=== PATIENT | male | born 1950 | race Caucasian/White ===

== ENCOUNTER → 2019-05-25 07:21 | Outpatient (CLI) | payer MEDICARE, SELFPAY ==
[2019-05-25 08:28] LABS: Add Manual Diff / Slide Review NO; Basophils Absolute Auto 0 /uL (0-100); Basophils Percent Auto 0.3 % (0-2); Eosinophils Absolute Auto 200 /uL (0-450); Eosinophils Percent Auto 3.1 % (2-4); Hemoglobin 17.3 g/dL (13.5-17.5); Lymphocytes Absolute Auto 1600 /uL (1100-4500); Lymphocytes Percent Auto 23.4 % (25-40); Mean Corpuscular HGB Conc 35.2 % (30-36); Mean Corpuscular Hemoglobin 31.4 PG (26-34); Mean Corpuscular Volume 89.2 fL (80-100); Monocytes Absolute Auto 500 /uL (0-900); Neutrophils Absolute Auto 4400 /uL (1500-7000); Neutrophils Percent Auto 66.2 % (50-75); Platelet Count 226 X10^3/uL (150-400); Red Blood Cell Count 5.49 X10^6/uL (4.5-5.9); Red Cell Distribution Width 13.1 % (11.6-14.8); White Blood Cell Count 6.7 X10^3/uL (4.5-11.0)
[2019-05-25 08:44] LABS: Alanine Aminotransferase 20 IU/L (21-72); Albumin 4.2 g/dL (3.5-5.0); Albumin Globulin Ratio 1.2 (1.0-2.8); Alkaline Phosphatase 76 U/L (38-126); Aspartate Aminotransferase 15 IU/L (17-59); BUN Creatinine Ratio 27.1 (6-22); Bilirubin Total 0.8 mg/dL (0.2-1.3); Blood Urea Nitrogen 19 mg/dL (9-20); Calcium 9.8 mg/dL (8.4-10.2); Carbon Dioxide 29 mmol/L (22-32); Chloride 96 mmol/L (98-107); Cholesterol 208 mg/dL (140-199); Estimated Glomerular Filt Rate > 60.0 mL/min (>60); Globulin 3.6 g/dL (1.7-4.1); Glucose 337 mg/dL (80-110); HDL Cholesterol 42 mg/dL (40-60); HEMOLYSIS < 15 (0-50); LDL Cholesterol Calculated 133 mg/dL (<100); Sodium 136 mmol/L (137-145); Total Protein 7.8 g/dL (6.3-8.2); Triglycerides 165 mg/dL (35-150)
[2019-05-25 08:47] LABS: Hemoglobin A1C% w Est Avg Glu 10.8 % (4.0-6.0)
[2019-05-25 09:13] LABS: Prostate Specific Antigen Scrn 0.566 ng/mL (0.1-4.0)
== END ==
PROVIDERS: Family Provider Family Medicine; PCP Family Medicine; Visit Provider Family Medicine
DX: E11.9 Type 2 diabetes mellitus without complications (principal); I10 Essential (primary) hypertension; Z12.5 Encounter for screening for malignant neoplasm of prostate; Z13.220 Encounter for screening for lipoid disorders
CPT/HCPCS: 36415; 80053; 80061; 83036; 85025; G0103

== ENCOUNTER → 2019-07-27 06:43 | Outpatient (CLI) | payer MEDICARE, SELFPAY ==
--- NOTE | 2019-07-27 06:45 | DI.ECHO.S_ITS ---
[facility]---------+ [facility] +---------+ : : [address] : : : : [phone] : : : : Phone: [phone]+ Echocardiogram Report + + :Name: LEIA DON Study Date: 07/27/2019 Height: 70 in : :[facility] Weight: 212 lb : : Gender: Male BSA: 2.1 m2 : :: 1950 Age: 69 yrs BP: 112/74 mmHg: :Reason For Study: Dilated ascending aorta : : Performed By: [facility] Staff : :Referring: JENARO CEJA : + + Interpretation Summary The left ventricle is normal in size. The ejection fraction is estimated to be 60-65%. There has been no significant change in LVEF since the previous study. The right ventricle is normal in size and function. No significant valvular pathology seen. The ascending aorta is moderately enlarged. 4.7 cm in diameter. In October 2017 it was 4.6 cm in diameter. The aortic root is mildly dilated. 4.3 cm in diameter. In October 2017 it was 4.0 cm in diameter. Procedure: A two-dimensional transthoracic echocardiogram with color flow and Doppler was performed. The study quality was technically adequate. Prior echo performed on 11/14/17. The patient was in normal sinus rhythm during the exam. Left Ventricle: The left ventricle is normal in size. There is mild concentric left ventricular hypertrophy. There is no thrombus. Left ventricular systolic function is normal. The ejection fraction is estimated to be 60-65%. There has been no significant change since the previous study. Left ventricular wall motion is normal. Diastolic parameters suggest a relaxation abnormality of the left ventricle, consistent with probable normal filling pressures. Right Ventricle: The right ventricle is normal in size and function. Atria: The left atrium is borderline dilated. The left atrium has mildly decreased in size since the prior echo exam. Right atrial size is normal. The interatrial septum is intact with no evidence for an atrial septal defect. Mitral Valve: The mitral valve leaflets are slightly calcified. There is trace mitral regurgitation. Aortic Valve: The aortic valve is trileaflet. The aortic valve opens well. There is no aortic valve stenosis. There is trace aortic regurgitation. Tricuspid Valve: The tricuspid valve is normal in structure and function. There is trace tricuspid regurgitation. Pulmonary artery pressures cannot be estimated because of the lack of a measurable TR jet velocity. Pulmonic Valve: The pulmonic valve is not well visualized. There is trace pulmonic regurgitation. Great Vessels: The aortic root is mildly dilated. The ascending aorta is moderately enlarged. The pulmonary artery is normal size. The IVC is of normal diameter and collapses greater than 50% with a sniff. This suggests a low right atrial pressure of 3 mm Hg. Pericardium/ Pleura There is no pericardial effusion. There is no pleural effusion. MMode/2D Measurements & Calculations LVIDd: 4.7 cm LVOT diam: 2.4 cm LVIDs: 2.8 cm Ao root diam: 4.3 cm FS: 40.5 % Aortic Jxn: 3.4 cm EPSS: 0.89 cm asc Aorta Diam: 4.7 cm IVSd: 1.3 cm Ao Arch Diam (Prox Trans): 3.5 cm LVPWd: 1.2 cm LV alba. diameter/BSA (cm/m^2): 2.2 LV sys. diameter/BSA (cm/m^2): 1.3 LA A2 area: 25.0 cm2 RA long axis: 6.1 cm LA A4 area: 22.6 cm2 RA area: 14.9 cm2 LA length (vol): 6.7 cm RA vol: 30.9 ml LA vol: 71.5 ml RA : 14.4 ml/m2 LA vol index: 33.4 ml/m2 TAPSE: 2.7 cm Doppler Measurements & Calculations Ao V2 max: 108.3 cm/sec LVOT Max Adan: 105.0 cm/sec Ao V2 mean: 84.0 cm/sec LV V1 max P.4 mmHg Ao max P.7 mmHg LV V1 VTI: 22.2 cm Ao mean P.1 mmHg QUIANA(I,D): 4.1 cm2 Ao V2 VTI: 23.7 cm QUIANA(V,D): 4.3 cm2 sev ratio: 0.94 QUIANA indexed to BSA (cm^2/m^2): 1.9 MV E max adan: 52.6 cm/sec PA V2 max: 61.6 cm/sec MV A max adan: 72.0 cm/sec PA V2 mean: 46.5 cm/sec MV E/A: 0.73 PA mean P.94 mmHg Med Peak E' Adan: 5.9 cm/sec PA Accel Time: 0.14 sec E/E' med: 8.9 Lat Peak E' Adan: 8.6 cm/sec E/E' lat: 6.1 E/e' average: 7.5 MV dec time: 0.25 sec SV(LVOT): 97.6 ml Reading Physician:06:18 PM
== END ==
PROVIDERS: PCP Family Medicine; Visit Provider Family Medicine
DX: I77.810 Thoracic aortic ectasia (principal)
CPT/HCPCS: 93306

== ENCOUNTER → 2019-07-30 06:40 | Outpatient (CLI) | payer MEDICARE, SELFPAY ==
[2019-07-30 09:00] LABS: Cholesterol 197 mg/dL (140-199); HDL Cholesterol 32 mg/dL (40-60); LDL Cholesterol Calculated 142 mg/dL (<100); Triglycerides 113 mg/dL (35-150)
[2019-07-30 09:04] LABS: Hemoglobin A1C% w Est Avg Glu 9.2 % (4.0-6.0)
== END ==
PROVIDERS: PCP Family Medicine; Visit Provider Family Medicine
DX: I10 Essential (primary) hypertension (principal)
CPT/HCPCS: 80061; 83036

== ENCOUNTER → 2019-12-24 06:57 | Outpatient (CLI) | payer MEDICARE, SELFPAY ==
[2019-12-24 08:44] LABS: Hemoglobin A1C% w Est Avg Glu 6.4 % (4.0-6.0)
== END ==
PROVIDERS: PCP Family Medicine; Referring Provider Family Medicine; Visit Provider Family Medicine
DX: E11.9 Type 2 diabetes mellitus without complications (principal)
CPT/HCPCS: 36415; 83036

== ENCOUNTER → 2020-03-21 07:04 | Outpatient (CLI) | payer MEDICARE, SELFPAY ==
[2020-03-21 08:32] LABS: Add Manual Diff / Slide Review NO; Basophils Absolute Auto 0 /uL (0-100); Basophils Percent Auto 0.6 % (0-2); Eosinophils Absolute Auto 200 /uL (0-450); Eosinophils Percent Auto 2.9 % (2-4); Hematocrit 43.3 % (41-53); Hemoglobin 15.1 g/dL (13.5-17.5); Lymphocytes Absolute Auto 1600 /uL (1100-4500); Lymphocytes Percent Auto 24.5 % (25-40); Mean Corpuscular HGB Conc 34.8 % (30-36); Mean Corpuscular Hemoglobin 31.5 PG (26-34); Mean Corpuscular Volume 90.4 fL (80-100); Monocytes Absolute Auto 500 /uL (0-900); Monocytes Percent Auto 7.9 % (3-14); Neutrophils Absolute Auto 4300 /uL (1500-7000); Neutrophils Percent Auto 64.1 % (50-75); Platelet Count 217 X10^3/uL (150-400); Red Blood Cell Count 4.79 X10^6/uL (4.5-5.9); Red Cell Distribution Width 13.6 % (11.6-14.8); White Blood Cell Count 6.7 X10^3/uL (4.5-11.0)
[2020-03-21 08:45] LABS: Alanine Aminotransferase 22 IU/L (<50); Albumin Globulin Ratio 1.3 (1.0-2.8); Alkaline Phosphatase 52 U/L (38-126); Aspartate Aminotransferase 21 IU/L (17-59); BUN Creatinine Ratio 27.4 (6-22); Bilirubin Total 0.4 mg/dL (0.2-1.3); Blood Urea Nitrogen 23 mg/dL (9-20); Calcium 9.4 mg/dL (8.4-10.2); Carbon Dioxide 31 mmol/L (22-32); Chloride 100 mmol/L (98-107); Cholesterol 121 mg/dL (140-199); Estimated Glomerular Filt Rate > 60.0 mL/min (>60); Glucose 146 mg/dL (80-110); HDL Cholesterol 38 mg/dL (40-60); HEMOLYSIS < 15 (0-50); LDL Cholesterol Calculated 67 mg/dL (<100); Sodium 137 mmol/L (137-145); Triglycerides 80 mg/dL (35-150)
[2020-03-21 08:46] LABS: Hemoglobin A1C% w Est Avg Glu 6.9 % (4.0-6.0)
== END ==
PROVIDERS: PCP Family Medicine; Referring Provider Family Medicine; Visit Provider Family Medicine
DX: E11.9 Type 2 diabetes mellitus without complications (principal); I77.810 Thoracic aortic ectasia
CPT/HCPCS: 36415; 80053; 80061; 83036; 85025

== ENCOUNTER → 2020-04-18 11:03 | Outpatient (CLI) | payer MEDICARE, SELFPAY ==
--- NOTE | 2020-04-18 11:06 | DI.RAD.S_ITS ---
PROCEDURE: XR SHOULDER RT MIN 2V INDICATIONS: ongoing right shoulder pain TECHNIQUE: 3 views of the shoulder were acquired. COMPARISON: None. FINDINGS: Bones: No fracture. Degenerative sclerosis and spurring at the AC and glenohumeral joints. No definite AC joint space narrowing. Soft tissues: No suspicious soft tissue calcifications. IMPRESSION: Degenerative changes as above. If the patient's pain or other symptoms persist, consider further evaluation with MRI Dictated by: Juan Alberto Hoyos M.D. on 04/18/2020 at 14:45 Approved by: Juan Alberto Hoyos M.D. on 04/18/2020 at 14:46
== END ==
PROVIDERS: PCP Family Medicine; Referring Provider Family Medicine; Visit Provider Family Medicine
DX: M25.511 Pain in right shoulder (principal); E11.9 Type 2 diabetes mellitus without complications
CPT/HCPCS: 73030

== ENCOUNTER → 2020-04-22 08:01 | Outpatient (CLI) | payer MEDICARE, SELFPAY ==
[2020-04-22 09:18] LABS: Add Manual Diff / Slide Review NO; Basophils Absolute Auto 0 /uL (0-100); Basophils Percent Auto 0.2 % (0-2); Eosinophils Absolute Auto 100 /uL (0-450); Hematocrit 45.5 % (41-53); Hemoglobin 15.7 g/dL (13.5-17.5); Lymphocytes Absolute Auto 1700 /uL (1100-4500); Lymphocytes Percent Auto 24.1 % (25-40); Mean Corpuscular HGB Conc 34.5 % (30-36); Monocytes Absolute Auto 600 /uL (0-900); Monocytes Percent Auto 8.1 % (3-14); Neutrophils Absolute Auto 4600 /uL (1500-7000); Neutrophils Percent Auto 65.6 % (50-75); Platelet Count 214 X10^3/uL (150-400); Red Blood Cell Count 5.05 X10^6/uL (4.5-5.9); Red Cell Distribution Width 13.7 % (11.6-14.8); White Blood Cell Count 7.1 X10^3/uL (4.5-11.0)
[2020-04-22 09:45] LABS: BUN Creatinine Ratio 27.2 (6-22); Blood Urea Nitrogen 22 mg/dL (9-20); Calcium 9.5 mg/dL (8.4-10.2); Carbon Dioxide 31 mmol/L (22-32); Chloride 100 mmol/L (98-107); Cholesterol 118 mg/dL (140-199); Estimated Glomerular Filt Rate > 60.0 mL/min (>60); Glucose 118 mg/dL (80-110); HDL Cholesterol 36 mg/dL (40-60); HEMOLYSIS < 15 (0-50); LDL Cholesterol Calculated 66 mg/dL (<100); Potassium 3.8 mmol/L (3.4-5.1); Sodium 137 mmol/L (137-145); Triglycerides 79 mg/dL (35-150)
--- NOTE | 2020-04-22 10:06 | DI.MRI.S_ITS ---
PROCEDURE: MR SHOULDER RT WO CON INDICATIONS: right shoulder pain s/p fall TECHNIQUE: Noncontrast oblique coronal T2 fast spin echo with fat saturation, oblique sagittal T1 spin echo and T2 fast spin echo with fat saturation, axial T1 spin echo and T2 fast spin echo with fat saturation through the shoulder. COMPARISON: [facility], CR, XR SHOULDER RT MIN 2V, 04/18/2020, 10:04. FINDINGS: Image quality: There are significant motion artifacts. Rotator cuff: There is full-thickness tear of the supraspinatus tendon with mild tendon retraction. There is high-grade partial thickness tear of the infraspinatus, and subscapularis tendons and associated tendinitis. Sagittal images demonstrate no muscle atrophy. Bones and bursae: No bone marrow contusions or fractures. There is severe acromioclavicular and glenohumeral joint degeneration. The acromion demonstrates conventional anatomy, without an os acromiale. There is moderate glenohumeral joint effusion and pathologic subacromial-subdeltoid or subcoracoid bursal fluid. Capsule and soft tissues: There is degenerative tear of the superior labrum and anterior labrum. In the absence of intra-articular contrast, the glenohumeral ligaments appear intact. The long head of the biceps tendon demonstrates normal location and morphology. The rotator interval appears normal, without fibrosis. The coracohumeral ligament is normal in thickness. IMPRESSION: 1. Full thickness tear of the supraspinatus tendon. There is mild tendon retraction but no supraspinatus muscle atrophy. 2. High-grade partial thickness tear of the infraspinatus and subscapularis tendons and associated tendinitis. 3. Degenerative labral tear of the superior and anterior labrum. 4. Severe glenohumeral and acromioclavicular joint degeneration. 5. Moderate glenohumeral joint effusion. There is subacromial-subdeltoid or subcoracoid bursal fluid it to joint effusion but superimposed bursitis may be present. Dictated by: Fazal Rubin M.D. on 04/24/2020 at 9:09 Approved by: Fazal Rubin M.D. on 04/24/2020 at 10:17
== END ==
PROVIDERS: PCP Family Medicine; Referring Provider Family Medicine; Visit Provider Family Medicine
DX: M25.511 Pain in right shoulder (principal); M75.121 Complete rotator cuff tear or rupture of right shoulder, not specified as traumatic; S43.491A Other sprain of right shoulder joint, initial encounter; M19.011 Primary osteoarthritis, right shoulder; M25.411 Effusion, right shoulder; E11.9 Type 2 diabetes mellitus without complications; I10 Essential (primary) hypertension
CPT/HCPCS: 36415; 73221; 80048; 80061; 85025

== ENCOUNTER → 2020-06-20 10:31 | Outpatient (CLI) | payer MEDICARE, SELFPAY ==
[2020-06-20 12:25] LABS: Hemoglobin A1C% w Est Avg Glu 6.5 % (4.0-6.0)
[2020-06-20 13:10] LABS: BUN Creatinine Ratio 22.1 (6-22); Blood Urea Nitrogen 21 mg/dL (9-20); Calcium 9.6 mg/dL (8.4-10.2); Carbon Dioxide 32 mmol/L (22-32); Chloride 99 mmol/L (98-107); Estimated Glomerular Filt Rate > 60.0 mL/min (>60); Glucose 100 mg/dL (80-110); HEMOLYSIS < 15 (0-50); Potassium 3.7 mmol/L (3.4-5.1); Sodium 138 mmol/L (137-145)
[2020-06-20 13:30] LABS: Prostate Specific Antigen Scrn 0.743 ng/mL (0.1-4.0)
== END ==
PROVIDERS: Family Provider Family Medicine; PCP Family Medicine; Referring Provider Family Medicine; Visit Provider Family Medicine
DX: E11.9 Type 2 diabetes mellitus without complications (principal); Z12.5 Encounter for screening for malignant neoplasm of prostate
CPT/HCPCS: 36415; 80048; 83036; G0103

== ENCOUNTER 2020-07-21 09:00 | Outpatient (RCR) | payer MEDICARE, SELFPAY ==
--- NOTE | 2020-06-06 11:38 | PT.OPPOC ---
Physical, Occupational & Speech Therapy At [facility] Current Diagnoses Strain of muscle(s) and tendon(s) of the rotator cuff of right shoulder, initial encounter (06/06/20) Visit Care Team Role Provider Type Mitesh Brizuela MD Family Provider Physician Primary Care Provider Specialty: Family Practice Address: [address] [place] [address], [id number] Email: [email or web address] Bennie Eisenberg MD Attending Provider Physician Referring Provider Specialty: Orthopedic Surgery Address: [address] [place] [address], [id number] Email: [email or web address] Plan Of Care PT-OP-T Assessment and Plan Start: 06/06/20 07:59 Freq: Status: Active Protocol: Document 06/06/20 10:15 AMB (Rec: 06/07/20 11:38 AMB [email or web address]) Physical Therapy Assessment Rehab Potential Rehabilitation Potential Good Evaluation Complexity Number of Personal Factors/Comorbidities 1-2 Number of Body Systems Impaired 3 Clinical Presentation at Evaluation Evolving Impairments Impairments Posture,ROM,Strength Goals Three Impairment Pain Short Term Goal (STG) Zak will sleep through the night without an increase in shoulder pain. STG Duration 4 weeks Stretching Press Operator Goal (LTG) Zak will report that he can perform his yardwork without an increase in shoulder pain. LTG Duration 8 weeks Two Impairment Strength Short Term Goal (STG) Zak will improve his right shoulder abduction strength to at least 4/5. STG Duration 4 weeks Stretching Press Operator Goal (LTG) Zak will improve his shoulder strength so that he can lift his grandkids without shoulder pain. LTG Duration 8 weeks One Impairment ROM Short Term Goal (STG) Zak will improve his abduction AROM to 140 degrees STG Duration 4 weeks Group Home Goal (LTG) Zak will have full horizonal adduction without an increase in shoulder pain. LTG Duration 8 weeks Assessment Summary Assessment Zak attends physical therapy with a long history of right shoulder issues, and significant rotator cuff and labral pathology per MRI. His shoulder pain increased recently after a fall, but has improved since then. Shoulder abduction and horizontal adduction are the motions that are the biggest impairments for him. He will benefit from instruction in an appropriate exercise program so that he can return to his prior level of function, he does have a tendency to over do, so we will need to help him to keep his exercise program appropriate and not flare his symptoms. Physical Therapy Plan Frequency and Duration Frequency of Treatment 2x/Week Duration of Treatment 8 weeks Plan of Care Start Date 06/06/20 Plan of Care End Date 08/01/20 Therapeutic Interventions Therapeutic Interventions Home Exercise Program,Manual Therapy,Neuromuscular Re- education,Therapeutic Activities,Therapeutic Exercises Modalities Cold Pack/Ice Massage,Electric Stimulation,Hot Packs Next Visit Focus/Plan Next Note Type Treatment Note Next Visit Plan Progress HEP with focus on good body mechanics with yardwork. Plan of Care Dates Plan of Care Start Date 06/06/20 Plan of Care End Date 08/01/20 Electronically Signed by: Francine Hatch, PT 06/07/20 [id number] Please Sign and Return: I have reviewed this Plan of Care and certify that the skilled therapy services above are required to meet the patient?s needs. Physician Signature Date Printed Name and Credentials Clinical Instructor Signature Printed Name and Credentials
--- NOTE | 2020-06-06 11:38 | PT.OIE ---
Current Diagnoses Strain of muscle(s) and tendon(s) of the rotator cuff of right shoulder, initial encounter (06/06/20) Past Medical History (Last Updated 04/17/20 @ 19:16 by Sruthi Lopez) Abdominal aortic aneurysm (Chronic) Atrial fibrillation (Chronic) Carpal tunnel syndrome (Chronic) Fractures (Resolved) Past Surgical History (Last Updated 04/17/20 @ 19:16 by Sruthi Lopez) Anesthesia (Resolved) History of tonsillectomy (Resolved) History of umbilical hernia (Resolved) Visit Care Team Role Provider Type Mitesh Brizuela MD Family Provider Physician Primary Care Provider Specialty: Family Practice Address: [address] [place] [address], [id number] Email: [email or web address] Bennie Eisenberg MD Attending Provider Physician Referring Provider Specialty: Orthopedic Surgery Address: [address] [place] [address], [id number] Email: [email or web address] Physical Therapy Initial Evaluation PT-OP-A Visit Information Start: 06/06/20 07:59 Freq: Status: Active Protocol: Document 06/06/20 10:15 AMB (Rec: 06/06/20 16:01 AMB [email or web address]) Out-Patient Physical Therapy Visit Information Visit Information Visit Type Initial Evaluation Visit Start Time 10:15 Visit Stop Time 11:00 Total Visit Minutes 45 Visit Number 1 PT-OP-B Current Condition Start: 06/06/20 07:59 Freq: Status: Active Protocol: Document 06/06/20 10:15 AMB (Rec: 06/06/20 10:27 AMB [id number]) Current Condition History of Current Condition Onset Date January 2020 Current Complaints R shoulder History of Current Condition Zak reports that he had a shoulder injury years ago, that worsened in January when he fell on outstretched arm. He reports his shoulder locks up at night, and he has significant difficulty with shoveling gravel (he is in the middle of a yardwork project) . 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 RHD. Wants to be able to lift his grandchildren Prior Treatments and Tests MRI: 1. Full thickness tear of the supraspinatus tendon. There is mild tendon retraction but no supraspinatus muscle atrophy. 2. High-grade partial thickness tear of the infraspinatus and subscapularis tendons and associated tendinitis. 3. Degenerative labral tear of the superior and anterior labrum. 4. Severe glenohumeral and acromioclavicular joint degeneration. 5. Moderate glenohumeral joint effusion. There is subacromial-subdeltoid or subcoracoid bursal fluid it to joint effusion but superimposed bursitis may be present. Prior Functional Status Baseline Function- ADL's Independent Baseline Function- Mobility Independent Current Functional Impairments (Reported) Functional Limitations- ADL's pain with shoulder abduction, lifting, sleeping on the shoulder Personal Factors Other Personal Factors That May Effect Aortic aneurism per patient. Therapy/Recovery PT-OP-C Subjective Start: 06/06/20 07:59 Freq: Status: Active Protocol: Document 06/06/20 10:15 AMB (Rec: 06/06/20 15:39 AMB [email or web address]) Patient Questionnaires Neck Disability Index NDI Score 10 Neck Disability Index Impairment 1 to 19% Impaired (Score 1-9) Quick Dash- Upper Extremity Quick Dash UE Score 22 Quick Dash UE Impairment 20 to 39% Impaired (Score 20- 39) OP-PT Pain Assessment Location Right Shoulder Pain Location Details ant/lateral Intensity 3 PT-OP-J Posture/Palpation/Skin Start: 06/06/20 07:59 Freq: Status: Active Protocol: Document 06/06/20 10:15 AMB (Rec: 06/06/20 16:01 AMB [email or web address]) Posture Evaluation Comments Posture Comments Forward shoulders, right shoulder depressed Palpation Assessment Location One Palpation Details Tightness at upper traps bilaterally, tenderness at biceps tendon, AC joint PT-OP-K Range of Motion Start: 06/06/20 07:59 Freq: Status: Active Protocol: Document 06/06/20 10:15 AMB (Rec: 06/06/20 16:01 AMB [email or web address]) Shoulder Goniometric Range of Motion Shoulder Left Active Shoulder ROM WFL Yes Testing Position Sitting Flexion 157 Abduction 180 External Rotation at 0 degrees Abduction 70 Right Active Testing Position Sitting Flexion 150 Extension 60 Abduction 100 External Rotation at 0 degrees Abduction 70 Comments pain with horizontal adduction PT-OP-L Special Tests Start: 06/06/20 07:59 Freq: Status: Active Protocol: Document 06/06/20 10:15 AMB (Rec: 06/06/20 16:01 AMB [email or web address]) Special Tests Shoulder Special Tests Lift-Off Rotator Cuff Test Results - Empty Can Test Results - PT-OP-M Strength Start: 06/06/20 07:59 Freq: Status: Active Protocol: Document 06/06/20 10:15 AMB (Rec: 06/06/20 16:01 AMB [email or web address]) Shoulder Strength Shoulder Manual Muscle Testing Right Abduction (C5) 4- Good- External Rotation 4+ Good+ Internal Rotation 4+ Good+ Left Flexion 4+ Good+ Extension 5 Normal Abduction (C5) 4+ Good+ External Rotation 5 Normal Internal Rotation 5 Normal PT-OP-Q Treatments Start: 06/06/20 07:59 Freq: Status: Active Protocol: Document 06/06/20 10:15 AMB (Rec: 06/07/20 11:38 AMB [email or web address]) Therapeutic Exercises Standing Exercises 2 Standing Exercise Name t band IR/ER Resistance #2 Reps/Minutes 2x12 1 Standing Exercise Name t band rows Resistance #2 Reps/Minutes 2x12 PT-OP-T Assessment and Plan Start: 06/06/20 07:59 Freq: Status: Active Protocol: Document 06/06/20 10:15 AMB (Rec: 06/07/20 11:38 AMB [email or web address]) Physical Therapy Assessment Rehab Potential Rehabilitation Potential Good Evaluation Complexity Number of Personal Factors/Comorbidities 1-2 Number of Body Systems Impaired 3 Clinical Presentation at Evaluation Evolving Impairments Impairments Posture,ROM,Strength Goals Three Impairment Pain Short Term Goal (STG) Zak will sleep through the night without an increase in shoulder pain. STG Duration 4 weeks Jail Goal (LTG) Zak will report that he can perform his yardwork without an increase in shoulder pain. LTG Duration 8 weeks Two Impairment Strength Short Term Goal (STG) Zak will improve his right shoulder abduction strength to at least 4/5. STG Duration 4 weeks Parking Assistant Goal (LTG) Zak will improve his shoulder strength so that he can lift his grandkids without shoulder pain. LTG Duration 8 weeks One Impairment ROM Short Term Goal (STG) Zak will improve his abduction AROM to 140 degrees STG Duration 4 weeks Parking Assistant Goal (LTG) Zak will have full horizonal adduction without an increase in shoulder pain. LTG Duration 8 weeks Assessment Summary Assessment Zak attends physical therapy with a long history of right shoulder issues, and significant rotator cuff and labral pathology per MRI. His shoulder pain increased recently after a fall, but has improved since then. Shoulder abduction and horizontal adduction are the motions that are the biggest impairments for him. He will benefit from instruction in an appropriate exercise program so that he can return to his prior level of function, he does have a tendency to over do, so we will need to help him to keep his exercise program appropriate and not flare his symptoms. Physical Therapy Plan Frequency and Duration Frequency of Treatment 2x/Week Duration of Treatment 8 weeks Plan of Care Start Date 06/06/20 Plan of Care End Date 08/01/20 Therapeutic Interventions Therapeutic Interventions Home Exercise Program,Manual Therapy,Neuromuscular Re- education,Therapeutic Activities,Therapeutic Exercises Modalities Cold Pack/Ice Massage,Electric Stimulation,Hot Packs Next Visit Focus/Plan Next Note Type Treatment Note Next Visit Plan Progress HEP with focus on good body mechanics with yardwork.
--- NOTE | 2020-06-09 10:57 | PT.OTN ---
Current Diagnoses Strain of muscle(s) and tendon(s) of the rotator cuff of right shoulder, initial encounter (06/09/20) Physical Therapy Treatment Note PT-OP-A Visit Information Start: 06/06/20 07:59 Freq: Status: Active Protocol: Document 06/09/20 10:15 AMB (Rec: 06/09/20 10:50 AMB [id number]) Out-Patient Physical Therapy Visit Information Visit Information Visit Type Treatment Note Visit Start Time 10:15 Visit Stop Time 11:00 Total Visit Minutes 45 Visit Number 2 PT-OP-B Current Condition Start: 06/06/20 07:59 Freq: Status: Active Protocol: Document 06/06/20 10:15 AMB (Rec: 06/06/20 10:27 AMB [id number]) Current Condition History of Current Condition Onset Date January 2020 Current Complaints R shoulder History of Current Condition Zak reports that he had a shoulder injury years ago, that worsened in January when he fell on outstretched arm. He reports his shoulder locks up at night, and he has significant difficulty with shoveling gravel (he is in the middle of a yardwork project) . 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 RHD. Wants to be able to lift his grandchildren Prior Treatments and Tests MRI: 1. Full thickness tear of the supraspinatus tendon. There is mild tendon retraction but no supraspinatus muscle atrophy. 2. High-grade partial thickness tear of the infraspinatus and subscapularis tendons and associated tendinitis. 3. Degenerative labral tear of the superior and anterior labrum. 4. Severe glenohumeral and acromioclavicular joint degeneration. 5. Moderate glenohumeral joint effusion. There is subacromial-subdeltoid or subcoracoid bursal fluid it to joint effusion but superimposed bursitis may be present. Prior Functional Status Baseline Function- ADL's Independent Baseline Function- Mobility Independent Current Functional Impairments (Reported) Functional Limitations- ADL's pain with shoulder abduction, lifting, sleeping on the shoulder Personal Factors Other Personal Factors That May Effect Aortic aneurism per patient. Therapy/Recovery PT-OP-C Subjective Start: 06/06/20 07:59 Freq: Status: Active Protocol: Document 06/09/20 10:15 AMB (Rec: 06/09/20 10:50 AMB [id number]) OP-PT Subjective Patient Comments Patient Comments Pt was a little sore after last appointment, although he did do a bit of yardwork later in the day. PT-OP-J Posture/Palpation/Skin Start: 06/06/20 07:59 Freq: Status: Active Protocol: Document 06/06/20 10:15 AMB (Rec: 06/06/20 16:01 AMB [email or web address]) Posture Evaluation Comments Posture Comments Forward shoulders, right shoulder depressed Palpation Assessment Location One Palpation Details Tightness at upper traps bilaterally, tenderness at biceps tendon, AC joint PT-OP-K Range of Motion Start: 06/06/20 07:59 Freq: Status: Active Protocol: Document 06/06/20 10:15 AMB (Rec: 06/06/20 16:01 AMB [email or web address]) Shoulder Goniometric Range of Motion Shoulder Left Active Shoulder ROM WFL Yes Testing Position Sitting Flexion 157 Abduction 180 External Rotation at 0 degrees Abduction 70 Right Active Testing Position Sitting Flexion 150 Extension 60 Abduction 100 External Rotation at 0 degrees Abduction 70 Comments pain with horizontal adduction PT-OP-L Special Tests Start: 06/06/20 07:59 Freq: Status: Active Protocol: Document 06/06/20 10:15 AMB (Rec: 06/06/20 16:01 AMB [email or web address]) Special Tests Shoulder Special Tests Lift-Off Rotator Cuff Test Results - Empty Can Test Results - PT-OP-M Strength Start: 06/06/20 07:59 Freq: Status: Active Protocol: Document 06/06/20 10:15 AMB (Rec: 06/06/20 16:01 AMB [email or web address]) Shoulder Strength Shoulder Manual Muscle Testing Right Abduction (C5) 4- Good- External Rotation 4+ Good+ Internal Rotation 4+ Good+ Left Flexion 4+ Good+ Extension 5 Normal Abduction (C5) 4+ Good+ External Rotation 5 Normal Internal Rotation 5 Normal PT-OP-Q Treatments Start: 06/06/20 07:59 Freq: Status: Active Protocol: Document 06/09/20 10:15 AMB (Rec: 06/09/20 10:50 AMB [id number]) Therapeutic Exercises Supine Exercises 1 Supine Exercise Name serratus punch Reps/Minutes 5# Comments 2x10 Sitting Exercises 1 Sitting Exercise Name syd Reps/Minutes 10 min Comments flexion and scaption Standing Exercises 3 Standing Exercise Name t band extension Resistance #2 Reps/Minutes 2x12 2 Standing Exercise Name t band IR/ER Resistance #2 Reps/Minutes 2x12 1 Standing Exercise Name t band rows Resistance #2 Reps/Minutes 2x12 Manual Therapy Treatment Joint Mobilizations 1 Joint GH Direction posterior Grade III Body Position Supine Reps/Duration 10 min PT-OP-T Assessment and Plan Start: 06/06/20 07:59 Freq: Status: Active Protocol: Document 06/09/20 10:15 AMB (Rec: 06/09/20 10:56 AMB [id number]) Physical Therapy Assessment Assessment Summary Assessment Zak does have pain and popping at mid range, extensive education into the anatomy of his injuries and respecting the joint, rather than pushing through. Given scap protract with 5# to add to HEP. Physical Therapy Plan Next Visit Focus/Plan Next Note Type Treatment Note Next Visit Plan Progress HEP, continue manual therapy for capsular stretch.
--- NOTE | 2020-06-13 10:56 | PT.OTN ---
Current Diagnoses Strain of muscle(s) and tendon(s) of the rotator cuff of right shoulder, initial encounter (06/13/20) Physical Therapy Treatment Note PT-OP-A Visit Information Start: 06/06/20 07:59 Freq: Status: Active Protocol: Document 06/13/20 09:55 AMB (Rec: 06/13/20 10:56 AMB [id number]) Out-Patient Physical Therapy Visit Information Visit Information Visit Type Treatment Note Visit Start Time 10:15 Visit Stop Time 11:00 Total Visit Minutes 45 Visit Number 3 PT-OP-B Current Condition Start: 06/06/20 07:59 Freq: Status: Active Protocol: Document 06/06/20 10:15 AMB (Rec: 06/06/20 10:27 AMB [id number]) Current Condition History of Current Condition Onset Date January 2020 Current Complaints R shoulder History of Current Condition Zak reports that he had a shoulder injury years ago, that worsened in January when he fell on outstretched arm. He reports his shoulder locks up at night, and he has significant difficulty with shoveling gravel (he is in the middle of a yardwork project) . 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 RHD. Wants to be able to lift his grandchildren Prior Treatments and Tests MRI: 1. Full thickness tear of the supraspinatus tendon. There is mild tendon retraction but no supraspinatus muscle atrophy. 2. High-grade partial thickness tear of the infraspinatus and subscapularis tendons and associated tendinitis. 3. Degenerative labral tear of the superior and anterior labrum. 4. Severe glenohumeral and acromioclavicular joint degeneration. 5. Moderate glenohumeral joint effusion. There is subacromial-subdeltoid or subcoracoid bursal fluid it to joint effusion but superimposed bursitis may be present. Prior Functional Status Baseline Function- ADL's Independent Baseline Function- Mobility Independent Current Functional Impairments (Reported) Functional Limitations- ADL's pain with shoulder abduction, lifting, sleeping on the shoulder Personal Factors Other Personal Factors That May Effect Aortic aneurism per patient. Therapy/Recovery PT-OP-C Subjective Start: 06/06/20 07:59 Freq: Status: Active Protocol: Document 06/13/20 09:55 AMB (Rec: 06/13/20 10:56 AMB [id number]) OP-PT Subjective Patient Comments Patient Comments Pt reporting end of the day shoulder soreness and slightly sore on Friday. PT-OP-J Posture/Palpation/Skin Start: 06/06/20 07:59 Freq: Status: Active Protocol: Document 06/06/20 10:15 AMB (Rec: 06/06/20 16:01 AMB [email or web address]) Posture Evaluation Comments Posture Comments Forward shoulders, right shoulder depressed Palpation Assessment Location One Palpation Details Tightness at upper traps bilaterally, tenderness at biceps tendon, AC joint PT-OP-K Range of Motion Start: 06/06/20 07:59 Freq: Status: Active Protocol: Document 06/06/20 10:15 AMB (Rec: 06/06/20 16:01 AMB [email or web address]) Shoulder Goniometric Range of Motion Shoulder Left Active Shoulder ROM WFL Yes Testing Position Sitting Flexion 157 Abduction 180 External Rotation at 0 degrees Abduction 70 Right Active Testing Position Sitting Flexion 150 Extension 60 Abduction 100 External Rotation at 0 degrees Abduction 70 Comments pain with horizontal adduction PT-OP-L Special Tests Start: 06/06/20 07:59 Freq: Status: Active Protocol: Document 06/06/20 10:15 AMB (Rec: 06/06/20 16:01 AMB [email or web address]) Special Tests Shoulder Special Tests Lift-Off Rotator Cuff Test Results - Empty Can Test Results - PT-OP-M Strength Start: 06/06/20 07:59 Freq: Status: Active Protocol: Document 06/06/20 10:15 AMB (Rec: 06/06/20 16:01 AMB [email or web address]) Shoulder Strength Shoulder Manual Muscle Testing Right Abduction (C5) 4- Good- External Rotation 4+ Good+ Internal Rotation 4+ Good+ Left Flexion 4+ Good+ Extension 5 Normal Abduction (C5) 4+ Good+ External Rotation 5 Normal Internal Rotation 5 Normal PT-OP-Q Treatments Start: 06/06/20 07:59 Freq: Status: Active Protocol: Document 06/13/20 09:55 AMB (Rec: 06/13/20 10:56 AMB [id number]) Therapeutic Exercises Supine Exercises 2 Supine Exercise Name alternating isometrics Comments at 90 degrees flexion 1 Supine Exercise Name serratus punch Reps/Minutes 5# Comments 2x10 Sitting Exercises 2 Sitting Exercise Name upper trap stretch Reps/Minutes 30x3 1 Sitting Exercise Name syd Reps/Minutes 10 min Comments flexion and scaption Standing Exercises 4 Standing Exercise Name shoulder IR/ER Equipment Used #2 Reps/Minutes 2x12 3 Standing Exercise Name t band extension Resistance #2 Reps/Minutes 2x12 2 Standing Exercise Name t band IR/ER Resistance #2 Reps/Minutes 2x12 1 Standing Exercise Name t band rows Resistance #2 Reps/Minutes 2x12 Manual Therapy Treatment Soft Tissue Mobilization 1 Body Location L upper trap Mobilization Type Myofascial Release,Sustained Pressure Joint Mobilizations 1 Joint GH Direction posterior Grade III Body Position Supine Reps/Duration 10 min PT-OP-T Assessment and Plan Start: 06/06/20 07:59 Freq: Status: Active Protocol: Document 06/13/20 09:55 AMB (Rec: 06/13/20 10:56 AMB [id number]) Physical Therapy Assessment Goals Three Impairment Pain Short Term Goal (STG) Zak will sleep through the night without an increase in shoulder pain. STG Duration 4 weeks Detention Goal (LTG) Zak will report that he can perform his yardwork without an increase in shoulder pain. LTG Duration 8 weeks Two Impairment Strength Short Term Goal (STG) Zak will improve his right shoulder abduction strength to at least 4/5. STG Duration 4 weeks Capsule Machine Operator Goal (LTG) Zak will improve his shoulder strength so that he can lift his grandkids without shoulder pain. LTG Duration 8 weeks One Impairment ROM Short Term Goal (STG) Zak will improve his abduction AROM to 140 degrees STG Duration 4 weeks Detention Goal (LTG) Zak will have full horizonal adduction without an increase in shoulder pain. LTG Duration 8 weeks Assessment Summary Assessment Zak continues to have pain with higher level activities like yoga and pushups, encouraged in modifications for these higher level activities. Physical Therapy Plan Frequency and Duration Frequency of Treatment 2x/Week Duration of Treatment 8 weeks Plan of Care Start Date 06/06/20 Plan of Care End Date 08/01/20 Therapeutic Interventions Therapeutic Interventions Home Exercise Program,Manual Therapy,Neuromuscular Re- education,Therapeutic Activities,Therapeutic Exercises Modalities Cold Pack/Ice Massage,Electric Stimulation,Hot Packs Next Visit Focus/Plan Next Note Type Treatment Note Next Visit Plan Progress HEP, continue manual therapy for capsular stretch.
--- NOTE | 2020-06-16 10:58 | PT.OTN ---
Current Diagnoses Strain of muscle(s) and tendon(s) of the rotator cuff of right shoulder, initial encounter (06/16/20) Physical Therapy Treatment Note PT-OP-A Visit Information Start: 06/06/20 07:59 Freq: Status: Active Protocol: Document 06/16/20 10:15 AMB (Rec: 06/16/20 10:40 AMB [id number]) Out-Patient Physical Therapy Visit Information Visit Information Visit Type Treatment Note Visit Start Time 10:15 Visit Stop Time 11:00 Total Visit Minutes 45 Visit Number 4 PT-OP-B Current Condition Start: 06/06/20 07:59 Freq: Status: Active Protocol: Document 06/06/20 10:15 AMB (Rec: 06/06/20 10:27 AMB [id number]) Current Condition History of Current Condition Onset Date January 2020 Current Complaints R shoulder History of Current Condition Zak reports that he had a shoulder injury years ago, that worsened in January when he fell on outstretched arm. He reports his shoulder locks up at night, and he has significant difficulty with shoveling gravel (he is in the middle of a yardwork project) . 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 RHD. Wants to be able to lift his grandchildren Prior Treatments and Tests MRI: 1. Full thickness tear of the supraspinatus tendon. There is mild tendon retraction but no supraspinatus muscle atrophy. 2. High-grade partial thickness tear of the infraspinatus and subscapularis tendons and associated tendinitis. 3. Degenerative labral tear of the superior and anterior labrum. 4. Severe glenohumeral and acromioclavicular joint degeneration. 5. Moderate glenohumeral joint effusion. There is subacromial-subdeltoid or subcoracoid bursal fluid it to joint effusion but superimposed bursitis may be present. Prior Functional Status Baseline Function- ADL's Independent Baseline Function- Mobility Independent Current Functional Impairments (Reported) Functional Limitations- ADL's pain with shoulder abduction, lifting, sleeping on the shoulder Personal Factors Other Personal Factors That May Effect Aortic aneurism per patient. Therapy/Recovery PT-OP-C Subjective Start: 06/06/20 07:59 Freq: Status: Active Protocol: Document 06/16/20 10:15 AMB (Rec: 06/16/20 10:40 AMB [id number]) OP-PT Subjective Patient Comments Patient Comments Pt reports increased soreness last night after lifting his 's computer. PT-OP-J Posture/Palpation/Skin Start: 06/06/20 07:59 Freq: Status: Active Protocol: Document 06/06/20 10:15 AMB (Rec: 06/06/20 16:01 AMB [email or web address]) Posture Evaluation Comments Posture Comments Forward shoulders, right shoulder depressed Palpation Assessment Location One Palpation Details Tightness at upper traps bilaterally, tenderness at biceps tendon, AC joint PT-OP-K Range of Motion Start: 06/06/20 07:59 Freq: Status: Active Protocol: Document 06/06/20 10:15 AMB (Rec: 06/06/20 16:01 AMB [email or web address]) Shoulder Goniometric Range of Motion Shoulder Left Active Shoulder ROM WFL Yes Testing Position Sitting Flexion 157 Abduction 180 External Rotation at 0 degrees Abduction 70 Right Active Testing Position Sitting Flexion 150 Extension 60 Abduction 100 External Rotation at 0 degrees Abduction 70 Comments pain with horizontal adduction PT-OP-L Special Tests Start: 06/06/20 07:59 Freq: Status: Active Protocol: Document 06/06/20 10:15 AMB (Rec: 06/06/20 16:01 AMB [email or web address]) Special Tests Shoulder Special Tests Lift-Off Rotator Cuff Test Results - Empty Can Test Results - PT-OP-M Strength Start: 06/06/20 07:59 Freq: Status: Active Protocol: Document 06/06/20 10:15 AMB (Rec: 06/06/20 16:01 AMB [email or web address]) Shoulder Strength Shoulder Manual Muscle Testing Right Abduction (C5) 4- Good- External Rotation 4+ Good+ Internal Rotation 4+ Good+ Left Flexion 4+ Good+ Extension 5 Normal Abduction (C5) 4+ Good+ External Rotation 5 Normal Internal Rotation 5 Normal PT-OP-Q Treatments Start: 06/06/20 07:59 Freq: Status: Active Protocol: Document 06/16/20 10:15 AMB (Rec: 06/16/20 10:40 AMB [id number]) Therapeutic Exercises Supine Exercises 2 Supine Exercise Name alternating isometrics Comments at 90 degrees flexion 1 Supine Exercise Name serratus punch Reps/Minutes 5# Comments 2x10 Sitting Exercises 3 Sitting Exercise Name horizontal add AROM Comments small range 2 Sitting Exercise Name upper trap stretch Reps/Minutes 30x3 1 Sitting Exercise Name syd Reps/Minutes 10 min Comments flexion and scaption Standing Exercises 1 Standing Exercise Name t band rows Resistance #2 Reps/Minutes 2x12 Manual Therapy Treatment Soft Tissue Mobilization 1 Body Location L upper trap, levator scap, sub scap, supra/ifraspinatus Mobilization Type Myofascial Release,Sustained Pressure PT-OP-T Assessment and Plan Start: 06/06/20 07:59 Freq: Status: Active Protocol: Document 06/16/20 10:15 AMB (Rec: 06/16/20 10:40 AMB [id number]) Physical Therapy Assessment Assessment Summary Assessment Zak needed extra instruction today in lifting and keeping the arm close to his body to avoid flaring his pain. Tightness at UT and scapular muscles. Physical Therapy Plan Next Visit Focus/Plan Next Note Type Treatment Note Next Visit Plan Progress HEP, continue manual therapy for capsular stretch.
--- NOTE | 2020-06-20 08:11 | PT.OTN ---
Current Diagnoses Strain of muscle(s) and tendon(s) of the rotator cuff of right shoulder, initial encounter (06/20/20) Physical Therapy Treatment Note PT-OP-A Visit Information Start: 06/06/20 07:59 Freq: Status: Active Protocol: Document 06/20/20 07:31 AMB (Rec: 06/20/20 08:10 AMB [id number]) Out-Patient Physical Therapy Visit Information Visit Information Visit Type Treatment Note Visit Start Time 07:30 Visit Stop Time 08:15 Total Visit Minutes 45 Visit Number 5 PT-OP-B Current Condition Start: 06/06/20 07:59 Freq: Status: Active Protocol: Document 06/06/20 10:15 AMB (Rec: 06/06/20 10:27 AMB [id number]) Current Condition History of Current Condition Onset Date January 2020 Current Complaints R shoulder History of Current Condition Zak reports that he had a shoulder injury years ago, that worsened in January when he fell on outstretched arm. He reports his shoulder locks up at night, and he has significant difficulty with shoveling gravel (he is in the middle of a yardwork project) . 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 RHD. Wants to be able to lift his grandchildren Prior Treatments and Tests MRI: 1. Full thickness tear of the supraspinatus tendon. There is mild tendon retraction but no supraspinatus muscle atrophy. 2. High-grade partial thickness tear of the infraspinatus and subscapularis tendons and associated tendinitis. 3. Degenerative labral tear of the superior and anterior labrum. 4. Severe glenohumeral and acromioclavicular joint degeneration. 5. Moderate glenohumeral joint effusion. There is subacromial-subdeltoid or subcoracoid bursal fluid it to joint effusion but superimposed bursitis may be present. Prior Functional Status Baseline Function- ADL's Independent Baseline Function- Mobility Independent Current Functional Impairments (Reported) Functional Limitations- ADL's pain with shoulder abduction, lifting, sleeping on the shoulder Personal Factors Other Personal Factors That May Effect Aortic aneurism per patient. Therapy/Recovery PT-OP-C Subjective Start: 06/06/20 07:59 Freq: Status: Active Protocol: Document 06/20/20 07:31 AMB (Rec: 06/20/20 08:10 AMB [id number]) OP-PT Subjective Patient Comments Patient Comments Pt PT-OP-J Posture/Palpation/Skin Start: 06/06/20 07:59 Freq: Status: Active Protocol: Document 06/06/20 10:15 AMB (Rec: 06/06/20 16:01 AMB [email or web address]) Posture Evaluation Comments Posture Comments Forward shoulders, right shoulder depressed Palpation Assessment Location One Palpation Details Tightness at upper traps bilaterally, tenderness at biceps tendon, AC joint PT-OP-K Range of Motion Start: 06/06/20 07:59 Freq: Status: Active Protocol: Document 06/06/20 10:15 AMB (Rec: 06/06/20 16:01 AMB [email or web address]) Shoulder Goniometric Range of Motion Shoulder Left Active Shoulder ROM WFL Yes Testing Position Sitting Flexion 157 Abduction 180 External Rotation at 0 degrees Abduction 70 Right Active Testing Position Sitting Flexion 150 Extension 60 Abduction 100 External Rotation at 0 degrees Abduction 70 Comments pain with horizontal adduction PT-OP-L Special Tests Start: 06/06/20 07:59 Freq: Status: Active Protocol: Document 06/06/20 10:15 AMB (Rec: 06/06/20 16:01 AMB [email or web address]) Special Tests Shoulder Special Tests Lift-Off Rotator Cuff Test Results - Empty Can Test Results - PT-OP-M Strength Start: 06/06/20 07:59 Freq: Status: Active Protocol: Document 06/06/20 10:15 AMB (Rec: 06/06/20 16:01 AMB [email or web address]) Shoulder Strength Shoulder Manual Muscle Testing Right Abduction (C5) 4- Good- External Rotation 4+ Good+ Internal Rotation 4+ Good+ Left Flexion 4+ Good+ Extension 5 Normal Abduction (C5) 4+ Good+ External Rotation 5 Normal Internal Rotation 5 Normal PT-OP-Q Treatments Start: 06/06/20 07:59 Freq: Status: Active Protocol: Document 06/20/20 07:31 AMB (Rec: 06/20/20 08:10 AMB [id number]) Therapeutic Exercises Supine Exercises 2 Supine Exercise Name alternating isometrics Comments at 90 degrees flexion 1 Supine Exercise Name serratus punch Reps/Minutes 5# Comments 2x10 Sitting Exercises 2 Sitting Exercise Name upper trap stretch Reps/Minutes 30x3 1 Sitting Exercise Name syd Reps/Minutes 10 min Comments flexion and scaption Standing Exercises 5 Standing Exercise Name isometrics Reps/Minutes 10 Comments flexion, extension Manual Therapy Treatment Soft Tissue Mobilization 1 Body Location L upper trap, levator scap, sub scap, supra/ifraspinatus Mobilization Type Myofascial Release,Sustained Pressure Joint Mobilizations 1 Joint GH Direction posterior Grade III Body Position Supine Reps/Duration 10 min PT-OP-T Assessment and Plan Start: 06/06/20 07:59 Freq: Status: Active Protocol: Document 06/20/20 07:31 AMB (Rec: 06/20/20 08:10 AMB [id number]) Physical Therapy Assessment Assessment Summary Assessment Zak continues to feel a catch at mid range, he finds this the biggest issue at this point. Although he would be hesitant to lift anything heavy with that arm as well. Physical Therapy Plan Next Visit Focus/Plan Next Note Type Treatment Note Next Visit Plan Progress HEP, continue manual therapy for capsular stretch.
--- NOTE | 2020-06-23 13:48 | PT.OTN ---
Current Diagnoses Strain of muscle(s) and tendon(s) of the rotator cuff of right shoulder, initial encounter (06/23/20) Physical Therapy Treatment Note PT-OP-A Visit Information Start: 06/06/20 07:59 Freq: Status: Active Protocol: Document 06/23/20 10:15 AMB (Rec: 06/23/20 11:04 AMB [id number]) Out-Patient Physical Therapy Visit Information Visit Information Visit Type Treatment Note Visit Start Time 10:15 Visit Stop Time 11:00 Total Visit Minutes 45 Visit Number 6 PT-OP-B Current Condition Start: 06/06/20 07:59 Freq: Status: Active Protocol: Document 06/06/20 10:15 AMB (Rec: 06/06/20 10:27 AMB [id number]) Current Condition History of Current Condition Onset Date January 2020 Current Complaints R shoulder History of Current Condition Zak reports that he had a shoulder injury years ago, that worsened in January when he fell on outstretched arm. He reports his shoulder locks up at night, and he has significant difficulty with shoveling gravel (he is in the middle of a yardwork project) . 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 RHD. Wants to be able to lift his grandchildren Prior Treatments and Tests MRI: 1. Full thickness tear of the supraspinatus tendon. There is mild tendon retraction but no supraspinatus muscle atrophy. 2. High-grade partial thickness tear of the infraspinatus and subscapularis tendons and associated tendinitis. 3. Degenerative labral tear of the superior and anterior labrum. 4. Severe glenohumeral and acromioclavicular joint degeneration. 5. Moderate glenohumeral joint effusion. There is subacromial-subdeltoid or subcoracoid bursal fluid it to joint effusion but superimposed bursitis may be present. Prior Functional Status Baseline Function- ADL's Independent Baseline Function- Mobility Independent Current Functional Impairments (Reported) Functional Limitations- ADL's pain with shoulder abduction, lifting, sleeping on the shoulder Personal Factors Other Personal Factors That May Effect Aortic aneurism per patient. Therapy/Recovery PT-OP-C Subjective Start: 06/06/20 07:59 Freq: Status: Active Protocol: Document 06/23/20 10:15 AMB (Rec: 06/23/20 11:04 AMB [id number]) OP-PT Subjective Patient Comments Patient Comments Pt shoveled and raked gravel yesterday and was expecting to feel more sore than he is. PT-OP-J Posture/Palpation/Skin Start: 06/06/20 07:59 Freq: Status: Active Protocol: Document 06/06/20 10:15 AMB (Rec: 06/06/20 16:01 AMB [email or web address]) Posture Evaluation Comments Posture Comments Forward shoulders, right shoulder depressed Palpation Assessment Location One Palpation Details Tightness at upper traps bilaterally, tenderness at biceps tendon, AC joint PT-OP-K Range of Motion Start: 06/06/20 07:59 Freq: Status: Active Protocol: Document 06/06/20 10:15 AMB (Rec: 06/06/20 16:01 AMB [email or web address]) Shoulder Goniometric Range of Motion Shoulder Left Active Shoulder ROM WFL Yes Testing Position Sitting Flexion 157 Abduction 180 External Rotation at 0 degrees Abduction 70 Right Active Testing Position Sitting Flexion 150 Extension 60 Abduction 100 External Rotation at 0 degrees Abduction 70 Comments pain with horizontal adduction PT-OP-L Special Tests Start: 06/06/20 07:59 Freq: Status: Active Protocol: Document 06/06/20 10:15 AMB (Rec: 06/06/20 16:01 AMB [email or web address]) Special Tests Shoulder Special Tests Lift-Off Rotator Cuff Test Results - Empty Can Test Results - PT-OP-M Strength Start: 06/06/20 07:59 Freq: Status: Active Protocol: Document 06/06/20 10:15 AMB (Rec: 06/06/20 16:01 AMB [email or web address]) Shoulder Strength Shoulder Manual Muscle Testing Right Abduction (C5) 4- Good- External Rotation 4+ Good+ Internal Rotation 4+ Good+ Left Flexion 4+ Good+ Extension 5 Normal Abduction (C5) 4+ Good+ External Rotation 5 Normal Internal Rotation 5 Normal PT-OP-Q Treatments Start: 06/06/20 07:59 Freq: Status: Active Protocol: Document 06/23/20 10:15 AMB (Rec: 06/23/20 13:48 AMB [email or web address]) Therapeutic Exercises Supine Exercises 3 Supine Exercise Name flexion to 45 degrees Resistance 2# Reps/Minutes 2x10 2 Supine Exercise Name alternating isometrics Comments at 90 degrees flexion Sidelying Exercises 2 Sidelying Exercise Name shoulder abd Resistance 2# Reps/Minutes 2x10 Comments partial ROM only to 30 degrees 1 Sidelying Exercise Name ER Resistance 2# Reps/Minutes 2x10 Sitting Exercises 2 Sitting Exercise Name upper trap stretch Reps/Minutes 30x3 Standing Exercises 5 Standing Exercise Name isometrics Reps/Minutes 10 Comments flexion, extension Manual Therapy Treatment Soft Tissue Mobilization 1 Body Location L upper trap, levator scap, sub scap, supra/ifraspinatus Mobilization Type Myofascial Release,Sustained Pressure Joint Mobilizations 1 Joint GH Direction posterior Grade III Body Position Supine Reps/Duration 10 min PT-OP-T Assessment and Plan Start: 06/06/20 07:59 Freq: Status: Active Protocol: Document 06/23/20 10:15 AMB (Rec: 06/23/20 11:58 AMB [email or web address]) Physical Therapy Assessment Assessment Summary Assessment Zak tolerated more strengthening today, but needed continued education to avoid irritating the shoulder. Continued education to keep arm close to body, avoid high velocity high force activities (eg. overhead throwing). Physical Therapy Plan Next Visit Focus/Plan Next Note Type Treatment Note Next Visit Plan Progress HEP- can add in weights if pt tolerated Friday 's appt well.
--- NOTE | 2020-07-03 13:34 | PT.OTN ---
Current Diagnoses Strain of muscle(s) and tendon(s) of the rotator cuff of right shoulder, initial encounter (07/03/20) Physical Therapy Treatment Note PT-OP-A Visit Information Start: 06/06/20 07:59 Freq: Status: Active Protocol: Document 07/03/20 12:45 AMB (Rec: 07/03/20 13:27 AMB [id number]) Out-Patient Physical Therapy Visit Information Visit Information Visit Type Treatment Note Visit Start Time 12:45 Visit Stop Time 13:30 Total Visit Minutes 45 Visit Number 7 PT-OP-B Current Condition Start: 06/06/20 07:59 Freq: Status: Active Protocol: Document 06/06/20 10:15 AMB (Rec: 06/06/20 10:27 AMB [id number]) Current Condition History of Current Condition Onset Date January 2020 Current Complaints R shoulder History of Current Condition Zak reports that he had a shoulder injury years ago, that worsened in January when he fell on outstretched arm. He reports his shoulder locks up at night, and he has significant difficulty with shoveling gravel (he is in the middle of a yardwork project) . 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 RHD. Wants to be able to lift his grandchildren Prior Treatments and Tests MRI: 1. Full thickness tear of the supraspinatus tendon. There is mild tendon retraction but no supraspinatus muscle atrophy. 2. High-grade partial thickness tear of the infraspinatus and subscapularis tendons and associated tendinitis. 3. Degenerative labral tear of the superior and anterior labrum. 4. Severe glenohumeral and acromioclavicular joint degeneration. 5. Moderate glenohumeral joint effusion. There is subacromial-subdeltoid or subcoracoid bursal fluid it to joint effusion but superimposed bursitis may be present. Prior Functional Status Baseline Function- ADL's Independent Baseline Function- Mobility Independent Current Functional Impairments (Reported) Functional Limitations- ADL's pain with shoulder abduction, lifting, sleeping on the shoulder Personal Factors Other Personal Factors That May Effect Aortic aneurism per patient. Therapy/Recovery PT-OP-C Subjective Start: 06/06/20 07:59 Freq: Status: Active Protocol: Document 07/03/20 12:45 AMB (Rec: 07/03/20 13:27 AMB [id number]) OP-PT Subjective Patient Comments Patient Comments Pt reports he was moving some wooden beams around and also using a sledgehammer and that really flared up his pain. PT-OP-J Posture/Palpation/Skin Start: 06/06/20 07:59 Freq: Status: Active Protocol: Document 06/06/20 10:15 AMB (Rec: 06/06/20 16:01 AMB [email or web address]) Posture Evaluation Comments Posture Comments Forward shoulders, right shoulder depressed Palpation Assessment Location One Palpation Details Tightness at upper traps bilaterally, tenderness at biceps tendon, AC joint PT-OP-K Range of Motion Start: 06/06/20 07:59 Freq: Status: Active Protocol: Document 06/06/20 10:15 AMB (Rec: 06/06/20 16:01 AMB [email or web address]) Shoulder Goniometric Range of Motion Shoulder Left Active Shoulder ROM WFL Yes Testing Position Sitting Flexion 157 Abduction 180 External Rotation at 0 degrees Abduction 70 Right Active Testing Position Sitting Flexion 150 Extension 60 Abduction 100 External Rotation at 0 degrees Abduction 70 Comments pain with horizontal adduction PT-OP-L Special Tests Start: 06/06/20 07:59 Freq: Status: Active Protocol: Document 06/06/20 10:15 AMB (Rec: 06/06/20 16:01 AMB [email or web address]) Special Tests Shoulder Special Tests Lift-Off Rotator Cuff Test Results - Empty Can Test Results - PT-OP-M Strength Start: 06/06/20 07:59 Freq: Status: Active Protocol: Document 06/06/20 10:15 AMB (Rec: 06/06/20 16:01 AMB [email or web address]) Shoulder Strength Shoulder Manual Muscle Testing Right Abduction (C5) 4- Good- External Rotation 4+ Good+ Internal Rotation 4+ Good+ Left Flexion 4+ Good+ Extension 5 Normal Abduction (C5) 4+ Good+ External Rotation 5 Normal Internal Rotation 5 Normal PT-OP-Q Treatments Start: 06/06/20 07:59 Freq: Status: Active Protocol: Document 07/03/20 12:45 AMB (Rec: 07/03/20 13:27 AMB [id number]) Therapeutic Exercises Supine Exercises 3 Supine Exercise Name flexion to 45 degrees Resistance 2# Reps/Minutes 2x7 2 Supine Exercise Name alternating isometrics Comments at 90 degrees flexion Sidelying Exercises 2 Sidelying Exercise Name shoulder abd Resistance 2# Reps/Minutes 2x7 Comments partial ROM only to 30 degrees 1 Sidelying Exercise Name ER Resistance 2# Reps/Minutes 2x10 Sitting Exercises 1 Sitting Exercise Name syd Reps/Minutes 10 min Comments flexion and scaption Manual Therapy Treatment Soft Tissue Mobilization 1 Body Location L upper trap, levator scap, sub scap, supra/ifraspinatus Mobilization Type Myofascial Release,Sustained Pressure Joint Mobilizations 1 Joint GH Direction posterior Grade III Body Position Supine Reps/Duration 10 min PT-OP-T Assessment and Plan Start: 06/06/20 07:59 Freq: Status: Active Protocol: Document 07/03/20 12:45 AMB (Rec: 07/03/20 13:27 AMB [id number]) Physical Therapy Assessment Assessment Summary Assessment Zak flared up his shoulder and was really encouraged to either avoid using a sledgehammer or return to his physician to seek further treatment, as right now his shoulder is just not strong enough to do the the activities he is wanting to do . Physical Therapy Plan Next Visit Focus/Plan Next Note Type Treatment Note Next Visit Plan Progress HEP- can add in weights if pt tolerated Friday 's appt well.
--- NOTE | 2020-07-11 13:30 | PT.OTN ---
Current Diagnoses Strain of muscle(s) and tendon(s) of the rotator cuff of right shoulder, initial encounter (07/11/20) Physical Therapy Treatment Note PT-OP-A Visit Information Start: 06/06/20 07:59 Freq: Status: Active Protocol: Document 07/11/20 13:30 AMB (Rec: 07/11/20 13:57 AMB [id number]) Out-Patient Physical Therapy Visit Information Visit Information Visit Type Treatment Note Visit Start Time 13:35 Visit Stop Time 14:15 Total Visit Minutes 45 Visit Number 8 PT-OP-B Current Condition Start: 06/06/20 07:59 Freq: Status: Active Protocol: Document 06/06/20 10:15 AMB (Rec: 06/06/20 10:27 AMB [id number]) Current Condition History of Current Condition Onset Date January 2020 Current Complaints R shoulder History of Current Condition Zak reports that he had a shoulder injury years ago, that worsened in January when he fell on outstretched arm. He reports his shoulder locks up at night, and he has significant difficulty with shoveling gravel (he is in the middle of a yardwork project) . 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 RHD. Wants to be able to lift his grandchildren Prior Treatments and Tests MRI: 1. Full thickness tear of the supraspinatus tendon. There is mild tendon retraction but no supraspinatus muscle atrophy. 2. High-grade partial thickness tear of the infraspinatus and subscapularis tendons and associated tendinitis. 3. Degenerative labral tear of the superior and anterior labrum. 4. Severe glenohumeral and acromioclavicular joint degeneration. 5. Moderate glenohumeral joint effusion. There is subacromial-subdeltoid or subcoracoid bursal fluid it to joint effusion but superimposed bursitis may be present. Prior Functional Status Baseline Function- ADL's Independent Baseline Function- Mobility Independent Current Functional Impairments (Reported) Functional Limitations- ADL's pain with shoulder abduction, lifting, sleeping on the shoulder Personal Factors Other Personal Factors That May Effect Aortic aneurism per patient. Therapy/Recovery PT-OP-C Subjective Start: 06/06/20 07:59 Freq: Status: Active Protocol: Document 07/11/20 13:30 AMB (Rec: 07/11/20 13:57 AMB [id number]) OP-PT Subjective Patient Comments Patient Comments Pt continues to have pain with lifting beams. PT-OP-J Posture/Palpation/Skin Start: 06/06/20 07:59 Freq: Status: Active Protocol: Document 06/06/20 10:15 AMB (Rec: 06/06/20 16:01 AMB [email or web address]) Posture Evaluation Comments Posture Comments Forward shoulders, right shoulder depressed Palpation Assessment Location One Palpation Details Tightness at upper traps bilaterally, tenderness at biceps tendon, AC joint PT-OP-K Range of Motion Start: 06/06/20 07:59 Freq: Status: Active Protocol: Document 06/06/20 10:15 AMB (Rec: 06/06/20 16:01 AMB [email or web address]) Shoulder Goniometric Range of Motion Shoulder Left Active Shoulder ROM WFL Yes Testing Position Sitting Flexion 157 Abduction 180 External Rotation at 0 degrees Abduction 70 Right Active Testing Position Sitting Flexion 150 Extension 60 Abduction 100 External Rotation at 0 degrees Abduction 70 Comments pain with horizontal adduction PT-OP-L Special Tests Start: 06/06/20 07:59 Freq: Status: Active Protocol: Document 06/06/20 10:15 AMB (Rec: 06/06/20 16:01 AMB [email or web address]) Special Tests Shoulder Special Tests Lift-Off Rotator Cuff Test Results - Empty Can Test Results - PT-OP-M Strength Start: 06/06/20 07:59 Freq: Status: Active Protocol: Document 06/06/20 10:15 AMB (Rec: 06/06/20 16:01 AMB [email or web address]) Shoulder Strength Shoulder Manual Muscle Testing Right Abduction (C5) 4- Good- External Rotation 4+ Good+ Internal Rotation 4+ Good+ Left Flexion 4+ Good+ Extension 5 Normal Abduction (C5) 4+ Good+ External Rotation 5 Normal Internal Rotation 5 Normal PT-OP-Q Treatments Start: 06/06/20 07:59 Freq: Status: Active Protocol: Document 07/11/20 13:30 AMB (Rec: 07/12/20 08:04 AMB [email or web address]) Therapeutic Exercises Supine Exercises 3 Supine Exercise Name flexion to 45 degrees Resistance 2# Reps/Minutes 2x7 2 Supine Exercise Name alternating isometrics Comments at 90 degrees flexion 1 Supine Exercise Name serratus punch Reps/Minutes 2x10 Sidelying Exercises 2 Sidelying Exercise Name shoulder abd Resistance 2# Reps/Minutes 2x7 Comments partial ROM only to 30 degrees 1 Sidelying Exercise Name ER Resistance 2# Reps/Minutes 2x10 Sitting Exercises 1 Sitting Exercise Name syd Reps/Minutes 10 min Comments flexion and scaption Manual Therapy Treatment Soft Tissue Mobilization 1 Body Location L upper trap, levator scap, sub scap, supra/ifraspinatus Mobilization Type Myofascial Release,Sustained Pressure Joint Mobilizations 1 Joint GH Direction posterior Grade III Body Position Supine Reps/Duration 5 min PT-OP-T Assessment and Plan Start: 06/06/20 07:59 Freq: Status: Active Protocol: Document 07/11/20 13:30 AMB (Rec: 07/11/20 13:57 AMB [id number]) Physical Therapy Assessment Assessment Summary Assessment Zak continues to be challenged by weights, but wants to push his range and strength, continues to note pain with activities like lifting beams. Physical Therapy Plan Next Visit Focus/Plan Next Note Type Treatment Note Next Visit Plan Follow up on how pt tolerated addition of weights
--- NOTE | 2020-07-14 15:00 | PT.OTN ---
Current Diagnoses Strain of muscle(s) and tendon(s) of the rotator cuff of right shoulder, initial encounter (07/14/20) Physical Therapy Treatment Note PT-OP-A Visit Information Start: 06/06/20 07:59 Freq: Status: Active Protocol: Document 07/14/20 13:32 AMB (Rec: 07/14/20 13:50 AMB [id number]) Out-Patient Physical Therapy Visit Information Visit Information Visit Type Treatment Note Visit Start Time 13:35 Visit Stop Time 14:15 Total Visit Minutes 40 Visit Number 9 PT-OP-B Current Condition Start: 06/06/20 07:59 Freq: Status: Active Protocol: Document 06/06/20 10:15 AMB (Rec: 06/06/20 10:27 AMB [id number]) Current Condition History of Current Condition Onset Date January 2020 Current Complaints R shoulder History of Current Condition Zak reports that he had a shoulder injury years ago, that worsened in January when he fell on outstretched arm. He reports his shoulder locks up at night, and he has significant difficulty with shoveling gravel (he is in the middle of a yardwork project) . 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 RHD. Wants to be able to lift his grandchildren Prior Treatments and Tests MRI: 1. Full thickness tear of the supraspinatus tendon. There is mild tendon retraction but no supraspinatus muscle atrophy. 2. High-grade partial thickness tear of the infraspinatus and subscapularis tendons and associated tendinitis. 3. Degenerative labral tear of the superior and anterior labrum. 4. Severe glenohumeral and acromioclavicular joint degeneration. 5. Moderate glenohumeral joint effusion. There is subacromial-subdeltoid or subcoracoid bursal fluid it to joint effusion but superimposed bursitis may be present. Prior Functional Status Baseline Function- ADL's Independent Baseline Function- Mobility Independent Current Functional Impairments (Reported) Functional Limitations- ADL's pain with shoulder abduction, lifting, sleeping on the shoulder Personal Factors Other Personal Factors That May Effect Aortic aneurism per patient. Therapy/Recovery PT-OP-C Subjective Start: 06/06/20 07:59 Freq: Status: Active Protocol: Document 07/14/20 13:32 AMB (Rec: 07/14/20 13:50 AMB [id number]) OP-PT Subjective Patient Comments Patient Comments Pt was quite sore the evening after PT. PT-OP-J Posture/Palpation/Skin Start: 06/06/20 07:59 Freq: Status: Active Protocol: Document 06/06/20 10:15 AMB (Rec: 06/06/20 16:01 AMB [email or web address]) Posture Evaluation Comments Posture Comments Forward shoulders, right shoulder depressed Palpation Assessment Location One Palpation Details Tightness at upper traps bilaterally, tenderness at biceps tendon, AC joint PT-OP-K Range of Motion Start: 06/06/20 07:59 Freq: Status: Active Protocol: Document 06/06/20 10:15 AMB (Rec: 06/06/20 16:01 AMB [email or web address]) Shoulder Goniometric Range of Motion Shoulder Left Active Shoulder ROM WFL Yes Testing Position Sitting Flexion 157 Abduction 180 External Rotation at 0 degrees Abduction 70 Right Active Testing Position Sitting Flexion 150 Extension 60 Abduction 100 External Rotation at 0 degrees Abduction 70 Comments pain with horizontal adduction PT-OP-L Special Tests Start: 06/06/20 07:59 Freq: Status: Active Protocol: Document 06/06/20 10:15 AMB (Rec: 06/06/20 16:01 AMB [email or web address]) Special Tests Shoulder Special Tests Lift-Off Rotator Cuff Test Results - Empty Can Test Results - PT-OP-M Strength Start: 06/06/20 07:59 Freq: Status: Active Protocol: Document 06/06/20 10:15 AMB (Rec: 06/06/20 16:01 AMB [email or web address]) Shoulder Strength Shoulder Manual Muscle Testing Right Abduction (C5) 4- Good- External Rotation 4+ Good+ Internal Rotation 4+ Good+ Left Flexion 4+ Good+ Extension 5 Normal Abduction (C5) 4+ Good+ External Rotation 5 Normal Internal Rotation 5 Normal PT-OP-Q Treatments Start: 06/06/20 07:59 Freq: Status: Active Protocol: Document 07/14/20 13:32 AMB (Rec: 07/14/20 13:50 AMB [id number]) Therapeutic Exercises Supine Exercises 3 Supine Exercise Name flexion to 45 degrees Resistance 2# Reps/Minutes 2x7 2 Supine Exercise Name alternating isometrics Comments at 90 degrees flexion 1 Supine Exercise Name AAROM dowel Comments flexion Sidelying Exercises 2 Sidelying Exercise Name shoulder abd Resistance 2# Reps/Minutes 2x7 Comments partial ROM only to 30 degrees 1 Sidelying Exercise Name ER Resistance 2# Reps/Minutes 2x10 Manual Therapy Treatment Soft Tissue Mobilization 1 Body Location L upper trap, levator scap, sub scap, supra/ifraspinatus Mobilization Type Myofascial Release,Sustained Pressure Joint Mobilizations 1 Joint GH Direction posterior Grade III Body Position Supine Reps/Duration 5 min PT-OP-T Assessment and Plan Start: 06/06/20 07:59 Freq: Status: Active Protocol: Document 07/14/20 13:32 AMB (Rec: 07/14/20 13:50 AMB [id number]) Physical Therapy Assessment Assessment Summary Assessment Zak continues to try to overdo. Pain with flexion today, but did tolerate abduction and external rotation. Physical Therapy Plan Next Visit Focus/Plan Next Note Type Progress Note Next Visit Plan Follow up on how pt tolerated addition of weights
--- NOTE | 2020-07-18 09:52 | PT.OTN ---
Current Diagnoses Strain of muscle(s) and tendon(s) of the rotator cuff of right shoulder, initial encounter (07/18/20) Physical Therapy Treatment Note PT-OP-A Visit Information Start: 06/06/20 07:59 Freq: Status: Active Protocol: Document 07/18/20 08:59 AMB (Rec: 07/18/20 09:21 AMB [id number]) Out-Patient Physical Therapy Visit Information Visit Information Visit Type Progress Note Visit Start Time 09:00 Visit Stop Time 09:45 Total Visit Minutes 45 Visit Number 10 PT-OP-B Current Condition Start: 06/06/20 07:59 Freq: Status: Active Protocol: Document 06/06/20 10:15 AMB (Rec: 06/06/20 10:27 AMB [id number]) Current Condition History of Current Condition Onset Date January 2020 Current Complaints R shoulder History of Current Condition Azk reports that he had a shoulder injury years ago, that worsened in January when he fell on outstretched arm. He reports his shoulder locks up at night, and he has significant difficulty with shoveling gravel (he is in the middle of a yardwork project) . 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 RHD. Wants to be able to lift his grandchildren Prior Treatments and Tests MRI: 1. Full thickness tear of the supraspinatus tendon. There is mild tendon retraction but no supraspinatus muscle atrophy. 2. High-grade partial thickness tear of the infraspinatus and subscapularis tendons and associated tendinitis. 3. Degenerative labral tear of the superior and anterior labrum. 4. Severe glenohumeral and acromioclavicular joint degeneration. 5. Moderate glenohumeral joint effusion. There is subacromial-subdeltoid or subcoracoid bursal fluid it to joint effusion but superimposed bursitis may be present. Prior Functional Status Baseline Function- ADL's Independent Baseline Function- Mobility Independent Current Functional Impairments (Reported) Functional Limitations- ADL's pain with shoulder abduction, lifting, sleeping on the shoulder Personal Factors Other Personal Factors That May Effect Aortic aneurism per patient. Therapy/Recovery PT-OP-C Subjective Start: 06/06/20 07:59 Freq: Status: Active Protocol: Document 07/18/20 08:59 AMB (Rec: 07/18/20 09:21 AMB [id number]) OP-PT Subjective Patient Comments Patient Comments Pt is sore today from hammering, putting up picture frames on the nieves. PT-OP-J Posture/Palpation/Skin Start: 06/06/20 07:59 Freq: Status: Active Protocol: Document 06/06/20 10:15 AMB (Rec: 06/06/20 16:01 AMB [email or web address]) Posture Evaluation Comments Posture Comments Forward shoulders, right shoulder depressed Palpation Assessment Location One Palpation Details Tightness at upper traps bilaterally, tenderness at biceps tendon, AC joint PT-OP-K Range of Motion Start: 06/06/20 07:59 Freq: Status: Active Protocol: Document 06/06/20 10:15 AMB (Rec: 06/06/20 16:01 AMB [email or web address]) Shoulder Goniometric Range of Motion Shoulder Left Active Shoulder ROM WFL Yes Testing Position Sitting Flexion 157 Abduction 180 External Rotation at 0 degrees Abduction 70 Right Active Testing Position Sitting Flexion 150 Extension 60 Abduction 100 External Rotation at 0 degrees Abduction 70 Comments pain with horizontal adduction PT-OP-L Special Tests Start: 06/06/20 07:59 Freq: Status: Active Protocol: Document 06/06/20 10:15 AMB (Rec: 06/06/20 16:01 AMB [email or web address]) Special Tests Shoulder Special Tests Lift-Off Rotator Cuff Test Results - Empty Can Test Results - PT-OP-M Strength Start: 06/06/20 07:59 Freq: Status: Active Protocol: Document 06/06/20 10:15 AMB (Rec: 06/06/20 16:01 AMB [email or web address]) Shoulder Strength Shoulder Manual Muscle Testing Right Abduction (C5) 4- Good- External Rotation 4+ Good+ Internal Rotation 4+ Good+ Left Flexion 4+ Good+ Extension 5 Normal Abduction (C5) 4+ Good+ External Rotation 5 Normal Internal Rotation 5 Normal PT-OP-Q Treatments Start: 06/06/20 07:59 Freq: Status: Active Protocol: Document 07/18/20 08:59 AMB (Rec: 07/18/20 09:21 AMB [id number]) Therapeutic Exercises Supine Exercises 3 Supine Exercise Name flexion to 45 degrees Resistance 1# Reps/Minutes 2x7 Sidelying Exercises 2 Sidelying Exercise Name shoulder abd Resistance 1# Reps/Minutes 2x7 Comments partial ROM only to 30 degrees 1 Sidelying Exercise Name ER Resistance 1# Reps/Minutes 2x10 Sitting Exercises 1 Sitting Exercise Name syd Reps/Minutes 10 min Comments flexion and scaption Manual Therapy Treatment Soft Tissue Mobilization 1 Body Location L upper trap, levator scap, sub scap, supra/ifraspinatus Mobilization Type Myofascial Release,Sustained Pressure Joint Mobilizations 2 Joint scapular mobs Direction all planes Grade III Body Position Sidelying 1 Joint GH Direction posterior Grade III Body Position Supine Reps/Duration 5 min PT-OP-T Assessment and Plan Start: 06/06/20 07:59 Freq: Status: Active Protocol: Document 07/18/20 08:59 AMB (Rec: 07/18/20 09:21 AMB [id number]) Physical Therapy Assessment Goals Three Impairment Pain Short Term Goal (STG) Zak will sleep through the night without an increase in shoulder pain. STG Duration NOT MET [employer] Goal (LTG) Zak will report that he can perform his yardwork without an increase in shoulder pain. LTG Duration NOT MET Two Impairment Strength Short Term Goal (STG) Zak will improve his right shoulder abduction strength to at least 4/5. STG Duration MET Nursing Home Goal (LTG) Zak will improve his shoulder strength so that he can lift his grandkids without shoulder pain. LTG Duration MET One Impairment ROM Short Term Goal (STG) Zak will improve his abduction AROM to 140 degrees STG Duration MET [employer] Goal (LTG) Zak will have full horizonal adduction without an increase in shoulder pain. LTG Duration NOT MET Assessment Summary Assessment Zak isn't noticing as much catching, still gets pain but isn't noticing as much sharp pain as when he started physical therapy. He continues to have pain with sleeping. If he keeps his arm in close to his body he does ok, but if he is reaching away from his body he continues to have pain. Physical Therapy Plan Frequency and Duration Frequency of Treatment 2x/Week Duration of Treatment 8 weeks Plan of Care Start Date 06/06/20 Plan of Care End Date 08/01/20 Therapeutic Interventions Therapeutic Interventions Home Exercise Program,Manual Therapy,Neuromuscular Re- education,Therapeutic Activities,Therapeutic Exercises Modalities Cold Pack/Ice Massage,Electric Stimulation,Hot Packs Next Visit Focus/Plan Next Note Type Treatment Note
--- NOTE | 2020-07-21 11:20 | PT.OTN ---
Current Diagnoses Strain of muscle(s) and tendon(s) of the rotator cuff of right shoulder, initial encounter (07/21/20) Physical Therapy Treatment Note PT-OP-A Visit Information Start: 06/06/20 07:59 Freq: Status: Active Protocol: Document 07/21/20 09:00 AMB (Rec: 07/21/20 09:18 AMB [id number]) Out-Patient Physical Therapy Visit Information Visit Information Visit Type Discharge Summary Visit Start Time 09:00 Visit Stop Time 09:45 Total Visit Minutes 45 Visit Number 11 PT-OP-B Current Condition Start: 06/06/20 07:59 Freq: Status: Active Protocol: Document 06/06/20 10:15 AMB (Rec: 06/06/20 10:27 AMB [id number]) Current Condition History of Current Condition Onset Date January 2020 Current Complaints R shoulder History of Current Condition Zak reports that he had a shoulder injury years ago, that worsened in January when he fell on outstretched arm. He reports his shoulder locks up at night, and he has significant difficulty with shoveling gravel (he is in the middle of a yardwork project) . 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 RHD. Wants to be able to lift his grandchildren Prior Treatments and Tests MRI: 1. Full thickness tear of the supraspinatus tendon. There is mild tendon retraction but no supraspinatus muscle atrophy. 2. High-grade partial thickness tear of the infraspinatus and subscapularis tendons and associated tendinitis. 3. Degenerative labral tear of the superior and anterior labrum. 4. Severe glenohumeral and acromioclavicular joint degeneration. 5. Moderate glenohumeral joint effusion. There is subacromial-subdeltoid or subcoracoid bursal fluid it to joint effusion but superimposed bursitis may be present. Prior Functional Status Baseline Function- ADL's Independent Baseline Function- Mobility Independent Current Functional Impairments (Reported) Functional Limitations- ADL's pain with shoulder abduction, lifting, sleeping on the shoulder Personal Factors Other Personal Factors That May Effect Aortic aneurism per patient. Therapy/Recovery PT-OP-C Subjective Start: 06/06/20 07:59 Freq: Status: Active Protocol: Document 07/21/20 09:00 AMB (Rec: 07/21/20 09:18 AMB [id number]) OP-PT Subjective Patient Comments Patient Comments Pt did get sore with raking, but it is tolerable. PT-OP-J Posture/Palpation/Skin Start: 06/06/20 07:59 Freq: Status: Active Protocol: Document 06/06/20 10:15 AMB (Rec: 06/06/20 16:01 AMB [email or web address]) Posture Evaluation Comments Posture Comments Forward shoulders, right shoulder depressed Palpation Assessment Location One Palpation Details Tightness at upper traps bilaterally, tenderness at biceps tendon, AC joint PT-OP-K Range of Motion Start: 06/06/20 07:59 Freq: Status: Active Protocol: Document 06/06/20 10:15 AMB (Rec: 06/06/20 16:01 AMB [email or web address]) Shoulder Goniometric Range of Motion Shoulder Left Active Shoulder ROM WFL Yes Testing Position Sitting Flexion 157 Abduction 180 External Rotation at 0 degrees Abduction 70 Right Active Testing Position Sitting Flexion 150 Extension 60 Abduction 100 External Rotation at 0 degrees Abduction 70 Comments pain with horizontal adduction PT-OP-L Special Tests Start: 06/06/20 07:59 Freq: Status: Active Protocol: Document 06/06/20 10:15 AMB (Rec: 06/06/20 16:01 AMB [email or web address]) Special Tests Shoulder Special Tests Lift-Off Rotator Cuff Test Results - Empty Can Test Results - PT-OP-M Strength Start: 06/06/20 07:59 Freq: Status: Active Protocol: Document 06/06/20 10:15 AMB (Rec: 06/06/20 16:01 AMB [email or web address]) Shoulder Strength Shoulder Manual Muscle Testing Right Abduction (C5) 4- Good- External Rotation 4+ Good+ Internal Rotation 4+ Good+ Left Flexion 4+ Good+ Extension 5 Normal Abduction (C5) 4+ Good+ External Rotation 5 Normal Internal Rotation 5 Normal PT-OP-Q Treatments Start: 06/06/20 07:59 Freq: Status: Active Protocol: Document 07/21/20 09:00 AMB (Rec: 07/21/20 09:25 AMB [id number]) Therapeutic Exercises Supine Exercises 3 Supine Exercise Name flexion to 45 degrees Resistance 2# Reps/Minutes 2x7 2 Supine Exercise Name alternating isometrics Comments at 90 degrees flexion Sidelying Exercises 2 Sidelying Exercise Name shoulder abd Resistance 1# Reps/Minutes 2x7 Comments partial ROM only to 30 degrees 1 Sidelying Exercise Name ER Resistance 1# Reps/Minutes 2x10 Sitting Exercises 1 Sitting Exercise Name syd Reps/Minutes 10 min Comments flexion and scaption Manual Therapy Treatment Soft Tissue Mobilization 1 Body Location L upper trap, levator scap, sub scap, supra/ifraspinatus Mobilization Type Myofascial Release,Sustained Pressure Joint Mobilizations 2 Joint scapular mobs Direction all planes Grade III Body Position Sidelying 1 Joint GH Direction posterior Grade III Body Position Supine Reps/Duration 5 min PT-OP-T Assessment and Plan Start: 06/06/20 07:59 Freq: Status: Active Protocol: Document 07/21/20 09:00 AMB (Rec: 07/21/20 09:18 AMB [id number]) Physical Therapy Assessment Goals Three Impairment Pain Short Term Goal (STG) Zak will sleep through the night without an increase in shoulder pain. STG Duration NOT MET Marketing Account Executive Goal (LTG) Zak will report that he can perform his yardwork without an increase in shoulder pain. LTG Duration NOT MET Two Impairment Strength Short Term Goal (STG) Zak will improve his right shoulder abduction strength to at least 4/5. STG Duration MET Marketing Account Executive Goal (LTG) Zak will improve his shoulder strength so that he can lift his grandkids without shoulder pain. LTG Duration MET One Impairment ROM Short Term Goal (STG) Zak will improve his abduction AROM to 140 degrees STG Duration MET Residential Goal (LTG) Zak will have full horizonal adduction without an increase in shoulder pain. LTG Duration NOT MET Assessment Summary Assessment Zak continues to notice shoulder pain with yardwork and with sleeping. He has been instructed in a HEP to keep his mobility and strength as good as possible. He feels he has made improvement in physical therapy, stating that the pain is not as sharp, but he continues to get pain when doing activities like lifting beams and hammering. 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 Given that he continues to do high level activities with his shoulder, he likely will continue to have some degree of pain, he feels that his current level of pain is liveable as he would very much like to avoid surgery. Hopefully he will continue on with his HEP and continue to improve slowly. Physical Therapy Plan Discharge Physical Therapy Discharge Reasons Plateau in Progress
--- NOTE | 2020-07-22 11:19 | PT.OTN ---
Current Diagnoses Strain of muscle(s) and tendon(s) of the rotator cuff of right shoulder, initial encounter (07/21/20) Physical Therapy Treatment Note PT-OP-A Visit Information Start: 06/06/20 07:59 Freq: Status: Active Protocol: Document 07/21/20 09:00 AMB (Rec: 07/21/20 09:18 AMB [id number]) Out-Patient Physical Therapy Visit Information Visit Information Visit Type Discharge Summary Visit Start Time 09:00 Visit Stop Time 09:45 Total Visit Minutes 45 Visit Number 11 PT-OP-B Current Condition Start: 06/06/20 07:59 Freq: Status: Active Protocol: Document 06/06/20 10:15 AMB (Rec: 06/06/20 10:27 AMB [id number]) Current Condition History of Current Condition Onset Date January 2020 Current Complaints R shoulder History of Current Condition Zak reports that he had a shoulder injury years ago, that worsened in January when he fell on outstretched arm. He reports his shoulder locks up at night, and he has significant difficulty with shoveling gravel (he is in the middle of a yardwork project) . 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 RHD. Wants to be able to lift his grandchildren Prior Treatments and Tests MRI: 1. Full thickness tear of the supraspinatus tendon. There is mild tendon retraction but no supraspinatus muscle atrophy. 2. High-grade partial thickness tear of the infraspinatus and subscapularis tendons and associated tendinitis. 3. Degenerative labral tear of the superior and anterior labrum. 4. Severe glenohumeral and acromioclavicular joint degeneration. 5. Moderate glenohumeral joint effusion. There is subacromial-subdeltoid or subcoracoid bursal fluid it to joint effusion but superimposed bursitis may be present. Prior Functional Status Baseline Function- ADL's Independent Baseline Function- Mobility Independent Current Functional Impairments (Reported) Functional Limitations- ADL's pain with shoulder abduction, lifting, sleeping on the shoulder Personal Factors Other Personal Factors That May Effect Aortic aneurism per patient. Therapy/Recovery PT-OP-C Subjective Start: 06/06/20 07:59 Freq: Status: Active Protocol: Document 07/21/20 09:00 AMB (Rec: 07/21/20 09:18 AMB [id number]) OP-PT Subjective Patient Comments Patient Comments Pt did get sore with raking, but it is tolerable. PT-OP-J Posture/Palpation/Skin Start: 06/06/20 07:59 Freq: Status: Active Protocol: Document 06/06/20 10:15 AMB (Rec: 06/06/20 16:01 AMB [email or web address]) Posture Evaluation Comments Posture Comments Forward shoulders, right shoulder depressed Palpation Assessment Location One Palpation Details Tightness at upper traps bilaterally, tenderness at biceps tendon, AC joint PT-OP-K Range of Motion Start: 06/06/20 07:59 Freq: Status: Active Protocol: Document 06/06/20 10:15 AMB (Rec: 06/06/20 16:01 AMB [email or web address]) Shoulder Goniometric Range of Motion Shoulder Left Active Shoulder ROM WFL Yes Testing Position Sitting Flexion 157 Abduction 180 External Rotation at 0 degrees Abduction 70 Right Active Testing Position Sitting Flexion 150 Extension 60 Abduction 100 External Rotation at 0 degrees Abduction 70 Comments pain with horizontal adduction PT-OP-L Special Tests Start: 06/06/20 07:59 Freq: Status: Active Protocol: Document 06/06/20 10:15 AMB (Rec: 06/06/20 16:01 AMB [email or web address]) Special Tests Shoulder Special Tests Lift-Off Rotator Cuff Test Results - Empty Can Test Results - PT-OP-M Strength Start: 06/06/20 07:59 Freq: Status: Active Protocol: Document 06/06/20 10:15 AMB (Rec: 06/06/20 16:01 AMB [email or web address]) Shoulder Strength Shoulder Manual Muscle Testing Right Abduction (C5) 4- Good- External Rotation 4+ Good+ Internal Rotation 4+ Good+ Left Flexion 4+ Good+ Extension 5 Normal Abduction (C5) 4+ Good+ External Rotation 5 Normal Internal Rotation 5 Normal PT-OP-Q Treatments Start: 06/06/20 07:59 Freq: Status: Active Protocol: Document 07/21/20 09:00 AMB (Rec: 07/21/20 09:25 AMB [id number]) Therapeutic Exercises Supine Exercises 3 Supine Exercise Name flexion to 45 degrees Resistance 2# Reps/Minutes 2x7 2 Supine Exercise Name alternating isometrics Comments at 90 degrees flexion Sidelying Exercises 2 Sidelying Exercise Name shoulder abd Resistance 1# Reps/Minutes 2x7 Comments partial ROM only to 30 degrees 1 Sidelying Exercise Name ER Resistance 1# Reps/Minutes 2x10 Sitting Exercises 1 Sitting Exercise Name syd Reps/Minutes 10 min Comments flexion and scaption Manual Therapy Treatment Soft Tissue Mobilization 1 Body Location L upper trap, levator scap, sub scap, supra/ifraspinatus Mobilization Type Myofascial Release,Sustained Pressure Joint Mobilizations 2 Joint scapular mobs Direction all planes Grade III Body Position Sidelying 1 Joint GH Direction posterior Grade III Body Position Supine Reps/Duration 5 min PT-OP-T Assessment and Plan Start: 06/06/20 07:59 Freq: Status: Active Protocol: Document 07/21/20 09:00 AMB (Rec: 07/21/20 09:18 AMB [id number]) Physical Therapy Assessment Goals Three Impairment Pain Short Term Goal (STG) Zak will sleep through the night without an increase in shoulder pain. STG Duration NOT MET Despatch Clerk Goal (LTG) Zak will report that he can perform his yardwork without an increase in shoulder pain. LTG Duration NOT MET Two Impairment Strength Short Term Goal (STG) Zak will improve his right shoulder abduction strength to at least 4/5. STG Duration MET Despatch Clerk Goal (LTG) Zak will improve his shoulder strength so that he can lift his grandkids without shoulder pain. LTG Duration MET One Impairment ROM Short Term Goal (STG) Zak will improve his abduction AROM to 140 degrees STG Duration MET Fci Goal (LTG) Zak will have full horizonal adduction without an increase in shoulder pain. LTG Duration NOT MET Assessment Summary Assessment Zak continues to notice shoulder pain with yardwork and with sleeping. He has been instructed in a HEP to keep his mobility and strength as good as possible. He feels he has made improvement in physical therapy, stating that the pain is not as sharp, but he continues to get pain when doing activities like lifting beams and hammering. 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 Given that he continues to do high level activities with his shoulder, he likely will continue to have some degree of pain, he feels that his current level of pain is liveable as he would very much like to avoid surgery. Hopefully he will continue on with his HEP and continue to improve slowly. Physical Therapy Plan Discharge Physical Therapy Discharge Reasons Plateau in Progress
== END 2020-07-28 08:11 | disposition home or self-care (01) ==
LOC: PHYS 09:00
PROVIDERS: Family Provider Family Medicine; PCP Family Medicine; Referring Provider Orthopaedic Surgery; Visit Provider Orthopaedic Surgery
DX: S46.011A Strain of muscle(s) and tendon(s) of the rotator cuff of right shoulder, initial encounter (principal)
CPT/HCPCS: 97110; 97140; 97162

== ENCOUNTER → 2020-09-29 07:06 | Outpatient (CLI) | payer MEDICARE, SELFPAY ==
[2020-09-29 08:20] LABS: Hemoglobin A1C% w Est Avg Glu 6.7 % (4.0-6.0)
== END ==
PROVIDERS: Family Provider Family Medicine; PCP Family Medicine; Referring Provider Family Medicine; Visit Provider Family Medicine
DX: E11.9 Type 2 diabetes mellitus without complications (principal); I10 Essential (primary) hypertension; I48.91 Unspecified atrial fibrillation; I71.4 Abdominal aortic aneurysm, without rupture
CPT/HCPCS: 36415; 83036

== ENCOUNTER → 2020-12-19 06:56 | Outpatient (CLI) | payer MEDICARE, SELFPAY ==
[2020-12-19 08:22] LABS: Blood Urea Nitrogen 23 mg/dL (9-20); Calcium 9.8 mg/dL (8.4-10.2); Carbon Dioxide 29 mmol/L (22-32); Chloride 101 mmol/L (98-107); Estimated Glomerular Filt Rate > 60.0 mL/min (>60); Glucose 133 mg/dL (80-110); HEMOLYSIS < 15 (0-50); Potassium 3.6 mmol/L (3.4-5.1); Sodium 137 mmol/L (137-145)
[2020-12-20 07:46] LABS: Add Manual Diff / Slide Review NO; Basophils Absolute Auto 0 /uL (0-100); Basophils Percent Auto 0.4 % (0-2); Eosinophils Absolute Auto 200 /uL (0-450); Eosinophils Percent Auto 2.4 % (2-4); Hematocrit 43.5 % (41-53); Hemoglobin 15.3 g/dL (13.5-17.5); Lymphocytes Absolute Auto 1800 /uL (1100-4500); Lymphocytes Percent Auto 21.9 % (25-40); Mean Corpuscular HGB Conc 35.2 % (30-36); Mean Corpuscular Hemoglobin 31.8 PG (26-34); Mean Corpuscular Volume 90.5 fL (80-100); Monocytes Absolute Auto 500 /uL (0-900); Monocytes Percent Auto 6.6 % (3-14); Neutrophils Absolute Auto 5700 /uL (1500-7000); Neutrophils Percent Auto 68.7 % (50-75); Platelet Count 197 X10^3/uL (150-400); Red Blood Cell Count 4.81 X10^6/uL (4.5-5.9); Red Cell Distribution Width 13.5 % (11.6-14.8); White Blood Cell Count 8.3 X10^3/uL (4.5-11.0)
== END ==
PROVIDERS: Family Provider Family Medicine; PCP Family Medicine; Referring Provider Internal Medicine Cardiovascular Disease; Visit Provider Internal Medicine Cardiovascular Disease
DX: I48.19 Other persistent atrial fibrillation (principal)
CPT/HCPCS: 36415; 80048; 85025

== ENCOUNTER → 2021-05-11 06:33 | Outpatient (CLI) | payer MEDICARE, SELFPAY ==
[2021-05-11 08:21] LABS: Add Manual Diff / Slide Review NO; Basophils Absolute Auto 0 /uL (0-100); Basophils Percent Auto 0.4 % (0-2); Eosinophils Absolute Auto 200 /uL (0-450); Eosinophils Percent Auto 2.8 % (2-4); Hematocrit 43.5 % (41-53); Hemoglobin 14.6 g/dL (13.5-17.5); Lymphocytes Absolute Auto 1300 /uL (1100-4500); Lymphocytes Percent Auto 17.7 % (25-40); Mean Corpuscular HGB Conc 33.6 % (30-36); Mean Corpuscular Hemoglobin 30.9 PG (26-34); Monocytes Absolute Auto 500 /uL (0-900); Monocytes Percent Auto 7.2 % (3-14); Neutrophils Absolute Auto 5500 /uL (1500-7000); Neutrophils Percent Auto 71.9 % (50-75); Platelet Count 247 X10^3/uL (150-400); Red Blood Cell Count 4.73 X10^6/uL (4.5-5.9); Red Cell Distribution Width 13.8 % (11.6-14.8); White Blood Cell Count 7.6 X10^3/uL (4.5-11.0)
[2021-05-11 08:35] LABS: Hemoglobin A1C% w Est Avg Glu 7.3 % (4.0-6.0)
[2021-05-11 08:47] LABS: HEMOLYSIS < 15 (0-50); NT-proBNP (BNP-Adult 18+) 628 pg/mL (<125)
[2021-05-11 08:49] LABS: Alanine Aminotransferase 15 IU/L (<50); Albumin 3.8 g/dL (3.5-5.0); Albumin Globulin Ratio 1.3 (1.0-2.8); Alkaline Phosphatase 51 U/L (38-126); Aspartate Aminotransferase 16 IU/L (17-59); Bilirubin Total 0.4 mg/dL (0.2-1.3); Blood Urea Nitrogen 21 mg/dL (9-20); Calcium 9.4 mg/dL (8.4-10.2); Carbon Dioxide 31 mmol/L (22-32); Chloride 100 mmol/L (98-107); Cholesterol 126 mg/dL (140-199); Estimated Glomerular Filt Rate > 60.0 mL/min (>60); Glucose 166 mg/dL (80-110); HDL Cholesterol 48 mg/dL (40-60); LDL Cholesterol Calculated 62 mg/dL (<100); Potassium 4.1 mmol/L (3.4-5.1); Sodium 137 mmol/L (137-145); Total Protein 6.8 g/dL (6.3-8.2); Triglycerides 80 mg/dL (35-150)
[2021-05-11 09:09] LABS: TSH w/ Reflex to FT4 2.73 uIU/mL (0.47-4.68)
== END ==
PROVIDERS: Family Provider Family Medicine; PCP Family Medicine; Referring Provider Family Medicine; Visit Provider Family Medicine
DX: E11.9 Type 2 diabetes mellitus without complications (principal); I10 Essential (primary) hypertension; R60.0 Localized edema; R22.43 Localized swelling, mass and lump, lower limb, bilateral; I48.20 Chronic atrial fibrillation, unspecified
CPT/HCPCS: 36415; 80053; 80061; 83036; 83880; 84443; 85025

== ENCOUNTER → 2021-05-18 14:37 | Outpatient (CLI) | payer MEDICARE, SELFPAY ==
--- NOTE | 2021-05-18 14:40 | DI.RAD.S_ITS ---
PROCEDURE: XR KNEE RT 3V INDICATIONS: right knee pain TECHNIQUE: 3 views of the knee were acquired. COMPARISON: [facility], , KNEE 3V RIGHT, 05/23/2016, 9:31. FINDINGS: Bones: No fractures or dislocations. Moderate tricompartmental osteoarthritis is seen more prominent in medial femoral tibial compartment. No suspicious bony lesions. Soft tissues: No significant joint effusion. No suspicious soft tissue calcifications. IMPRESSION: Moderate tricompartmental osteoarthritis more prominent in medial femoral tibial compartment. No fracture or dislocation. Dictated by: Javier Hwang M.D. on 05/18/2021 at 16:14 Approved by: Javier Hwang M.D. on 05/18/2021 at 16:20
--- NOTE | 2021-05-18 14:54 | DI.RAD.S_ITS ---
PROCEDURE: XR KNEE LT 3V INDICATIONS: bilateral knee pain TECHNIQUE: 3 views of the knee were acquired. COMPARISON: [facility], , KNEE 3V RIGHT, 05/23/2016, 9:31. FINDINGS: Bones: There are tricompartmental degenerative changes with medial joint space narrowing. No fractures or dislocations. No suspicious bony lesions. Soft tissues: No joint effusion. Calcifications in the medial joint space consistent with chondrocalcinosis. IMPRESSION: 1. Tricompartmental degenerative changes consistent with osteoarthritis. 2. Chondrocalcinosis. Differential diagnosis includes but is not limited to hemochromatosis, hyperparathyroidism, and CPPD. Dictated by: Humberto Brennan M.D. on 05/18/2021 at 16:32 Approved by: Humberto Brennan M.D. on 05/18/2021 at 16:36
== END ==
PROVIDERS: Family Provider Family Medicine; PCP Family Medicine; Referring Provider Family Medicine; Visit Provider Family Medicine
DX: M17.10 Unilateral primary osteoarthritis, unspecified knee (principal); M25.561 Pain in right knee; M25.562 Pain in left knee; M11.20 Other chondrocalcinosis, unspecified site
CPT/HCPCS: 73562

== ENCOUNTER → 2021-08-06 06:51 | Outpatient (CLI) | payer MEDICARE, SELFPAY ==
[2021-08-06 08:36] LABS: Add Manual Diff / Slide Review NO; Basophils Absolute Auto 0 /uL (0-100); Basophils Percent Auto 0.4 % (0-2); Eosinophils Absolute Auto 200 /uL (0-450); Eosinophils Percent Auto 3.2 % (2-4); Lymphocytes Absolute Auto 1600 /uL (1100-4500); Lymphocytes Percent Auto 24.8 % (25-40); Mean Corpuscular HGB Conc 34.9 % (30-36); Mean Corpuscular Volume 88.7 fL (80-100); Monocytes Absolute Auto 600 /uL (0-900); Monocytes Percent Auto 9.6 % (3-14); Neutrophils Absolute Auto 4000 /uL (1500-7000); Platelet Count 202 X10^3/uL (150-400); Red Blood Cell Count 4.85 X10^6/uL (4.5-5.9); Red Cell Distribution Width 13.8 % (11.6-14.8); White Blood Cell Count 6.5 X10^3/uL (4.5-11.0)
[2021-08-06 08:51] LABS: Hemoglobin A1C% w Est Avg Glu 7.5 % (4.0-6.0)
[2021-08-06 09:11] LABS: Carbon Dioxide 33 mmol/L (22-32); Chloride 98 mmol/L (98-107); HEMOLYSIS < 15 (0-50); Sodium 137 mmol/L (137-145)
== END ==
PROVIDERS: Family Provider Family Medicine; PCP Family Medicine; Referring Provider Orthopaedic Surgery; Visit Provider Orthopaedic Surgery
DX: E11.9 Type 2 diabetes mellitus without complications (principal); Z01.812 Encounter for preprocedural laboratory examination; Z01.818 Encounter for other preprocedural examination; I87.8 Other specified disorders of veins
CPT/HCPCS: 36415; 80051; 83036; 85025

== ENCOUNTER 2021-08-25 09:19 | Emergency (ER) | payer MEDICARE, SELFPAY ==
[2021-08-25] VITALS (9 sets, daily range): BP systolic 104–148; BP diastolic 64–81; PULSE 66–99; RESP 22; TEMP 36.5; O2SAT 93–99; BMI 30.1
--- NOTE | 2021-08-25 09:25 | DI.US.S_ITS ---
PROCEDURE: US PERIPH VENOUS LOW EXTREM LT INDICATIONS: pain, swelling, redness, 5 days post op, sent by ortho TECHNIQUE: Real-time imaging, as well as color and pulse Doppler interrogation, were performed of the lower extremity deep veins from the inguinal ligament to the popliteal fossa. COMPARISON: None. FINDINGS: The common femoral, femoral and popliteal veins are normally compressible, and free of intraluminal thrombus. Color and pulse Doppler demonstrate normal phasic intraluminal flow. There is normal augmentation response to distal compression maneuver. IMPRESSION: No sonographic evidence of DVT. Dictated by: Delio Kulkarni M.D. on 08/25/2021 at 10:15 Approved by: Delio Kulkarni M.D. on 08/25/2021 at 10:18
--- NOTE | 2021-08-25 09:39 | ED.EXTPRO ---
HPI - Extremity Problem General Chief complaint: Extremity Problem,Nontraumatic Stated complaint: post partial knee, swollen, painful Time Seen by Provider: 08/25/21 09:24 Source: patient Mode of arrival: Wheelchair History of Present Illness HPI Narrative: 71-year-old male former smoker with history of hypertension, diabetes, and atrial fibrillation on Xarelto until 5 days prior to a recent left knee surgery. He just started taking the Xarelto again a day or 2 ago. He denies any chest pain or shortness of breath. He has had some increasing redness of his left medial knee along with pain. There is minimal bloody drainage from the incision but no purulence. He has had no fever or chills. He denies any numbness, tingling or weakness and has had no falls. He had been in touch with the on-call orthopedist to requested he come to the emergency department for ultrasound to rule out DVT. Related Data Previous Rx's Medication Instructions Recorded sildenafil 100 mg tablet See Rx Instructions .ROUTE 11/24/19 .COMPLEX #90 tab metoprolol succinate 50 mg capsule 50 mg PO DAILY #90 each 03/20/20 sprinkle, ext. release 24 hr rivaroxaban 20 mg tablet (Xarelto) 20 mg PO QPM #90 tab 03/20/20 rosuvastatin 20 mg tablet 20 mg PO DAILY #90 tab 03/20/20 amlodipine 5 mg tablet (Norvasc) 5 mg PO BID #180 tab 01/24/21 hydrochlorothiazide 25 mg tablet 50 mg PO DAILY #180 tab 01/24/21 metformin 1,000 mg tablet 1,000 mg PO BID #180 tab 01/24/21 Allergies Allergy/AdvReac Type Severity Reaction Status Date / Time No Known Drug Allergies Allergy Verified 05/16/21 08:19 Review of Systems Review of Systems Narrative: GENERAL: Denies chills, fatigue, malaise, fever, sweats. HEENT: Denies sinus pain, ear pain, sore throat, difficulty swallowing, dizziness. RESPIRATORY: Denies dyspnea, cough, wheezing, hemoptysis, sputum. CARDIOVASCULAR: Denies chest pain, palpitations, orthopnea, edema, GASTROINTESTINAL: Denies nausea, vomiting, abdominal pain, diarrhea, constipation, melena. : Denies dysuria, frequency, incontinence, hematuria, urinary retention. MUSCULOSKELETAL: See HPI SKIN: See HP NEUROLOGIC: Denies weakness, headache, numbness, change in speech, confusion, seizures, incoordination. PSYCHIATRIC: No concerning psychosocial issues. 12 point review of systems is negative except for those stated above Patient History Medical History Abdominal aortic aneurysm Atrial fibrillation Carpal tunnel syndrome Chronic venous stasis DMII (diabetes mellitus, type 2) Fractures Surgical History Anesthesia History of tonsillectomy History of umbilical hernia Social History Smoking Status: Former smoker Smoking Status: Former smoker Substance Use Type: marijuana Exam Narrative Exam Narrative: GEN: AOx3 and in mild distress EYES: Pupils are equal, round, and reactive to light and accommodation. Extraoccular muscles are intact bilaterally. There is no subconjunctival hemorrhage or exudate. CHEST: Lungs are clear to auscultation bilaterally and free of wheezes, rales, or rhonchi. Heart rate is regular rhythm, there are no murmurs, clicks, rubs, or gallops. There is no chest wall tenderness. ABD: Abdomen is soft and nontender. There is no guarding or rebound. Bowel sounds are normal in all 4 quadrants. There is no mass or organomegaly. EXT: Left knee with minimal erythema and [id number] effusion, bandage in place, some dried blood present but no evidence of purulence. There is some tenderness to palpation in the popliteal fossa. SKIN: Warm, pink, and dry. No erythema or rash Initial Vital Signs Initial Vital Signs: Vital Signs Temperature 97.7 F 08/25/21 09:20 Pulse Rate 99 H 08/25/21 09:20 Respiratory Rate 22 08/25/21 09:20 Blood Pressure 111/81 08/25/21 09:20 Pulse Oximetry 99 08/25/21 09:20 Course Orders Ordered: ED Orders 08/25/21 09:25 periph venous low extrem lt Stat Discontinued Medications Acetaminophen (Acetaminophen 325 Mg Tablet) 975 mg PO NOW ONE Stop: 08/25/21 11:22 Consultations Consultation #1: Findings discussed with on-call orthopedist, recommend ongoing pain control and follow-up as planned. Vital Signs Vital signs: Vital Signs - 8 hr 12/25/21 09:20 08/25/21 09:26 08/25/21 09:30 Temperature 97.7 F Pulse Rate 99 H 99 H 95 H Respiratory Rate 22 Blood Pressure 111/81 104/64 Pulse Oximetry 99 97 97 08/25/21 10:00 08/25/21 10:30 08/25/21 11:00 Temperature Pulse Rate 84 84 86 Respiratory Rate Blood Pressure 108/70 Pulse Oximetry 95 98 98 08/25/21 11:10 08/25/21 11:30 08/25/21 11:35 Temperature Pulse Rate 94 H 81 66 Respiratory Rate Blood Pressure 132/77 148/68 H Pulse Oximetry 93 94 93 MDM - Extremity (Nontraumatic) Imaging Data US - DVT: Radiologist's Impression: [address] [address] Ultrasound Report Signed Patient: Zak Deal MR#: [id number] : 1950 Acct:[id number] Age/Sex: 71 / M Date of Service: 08/25/21 Loc: ED Accession Number: [id number] ?? Procedure: US periph venous low extrem lt Ordering Provider: Riky Schreiber D.O. PROCEDURE:? US PERIPH VENOUS LOW EXTREM LT ? INDICATIONS:? pain, swelling, redness, 5 days post op, sent by ortho ? TECHNIQUE:? Real-time imaging, as well as color and pulse Doppler interrogation, were performed of the lower extremity deep veins from the inguinal ligament to the popliteal fossa.? ? COMPARISON:? None. ? FINDINGS:? The common femoral, femoral and popliteal veins are normally compressible, and free of intraluminal thrombus.? Color and pulse Doppler demonstrate normal phasic intraluminal flow.? There is normal augmentation response to distal compression maneuver. ? ? IMPRESSION:? No sonographic evidence of DVT. ? ? Dictated by: Delio Kulkarni M.D. on 08/25/2021 at 10:15 ? ? Approved by: Delio Kulkarni M.D. on 08/25/2021 at 10:18 ? Discharge Plan Departure Patient Disposition: Home Clinical Impression: Acute pain of left knee, Hematoma of left knee region Instructions: DI for Hematoma (Bruise) Activity Restrictions/Additional Instructions: *You have been diagnosed with [left knee hematoma. There is no evidence of infection or deep vein thrombosis. I have discussed with on-call orthopedist who recommends follow-up as previously planned *What to do: *Please continue to take your regular medications as directed. [ ] New medication prescriptions sent to your pharmacy: [ ] [ ] New medication written as a paper prescription [ x] No new medications given *Please follow up with your primary care provider in 2-3 days, call for an appointment. Let them know you were seen in the Emergency Department and that we ask that you be seen in follow up. We will electronically transmit a record of today's note if your PCP is in our system *If you do not have a primary care provider please contact the [facility] Resource line at [phone]. They will ask some questions about your medical history and help get you set up with a doctor in the community. *Return to Emergency Department if you should have any new, worsening or concerning symptoms, such as [fever greater than 101 F, shaking chills, worsening pain, persistent vomiting or other bothersome symptoms] Prescriptions: No Action sildenafil 100 mg tablet See Rx Instructions .ROUTE .COMPLEX Qty: 90 2RF Dose Instruction: Take one tablet by mouth one time daily Rx Instructions: Take one tablet by mouth one time daily amlodipine [Norvasc] 5 mg tablet 5 mg PO BID Qty: 180 3RF Rx Instructions: Take one tablet by mouth twice a day. hydrochlorothiazide 25 mg tablet 50 mg PO DAILY Qty: 180 3RF metformin 1,000 mg tablet 1,000 mg PO BID Qty: 180 3RF Rx Instructions: Take one tablet by mouth twice a day. rosuvastatin 20 mg tablet 20 mg PO DAILY Qty: 90 3RF Xarelto 20 mg tablet 20 mg PO QPM Qty: 90 3RF Rx Instructions: must administer with evening meal metoprolol succinate 50 mg capsule,sprinkle,ER 24hr 50 mg PO DAILY Qty: 90 3RF Referrals: David Bateman MD [Primary Care Provider] -
== END 2021-08-25 11:41 | disposition home or self-care (01) ==
PROVIDERS: Emergency Provider Emergency Medicine; Family Provider Family Medicine; PCP Family Medicine
DX: S80.02XA Contusion of left knee, initial encounter (principal); Z79.01 Long term (current) use of anticoagulants; Z87.891 Personal history of nicotine dependence; X58.XXXA Exposure to other specified factors, initial encounter
CPT/HCPCS: 93971; 99281; 99284

== ENCOUNTER 2021-10-29 09:14 | Emergency (ER) | payer MEDICARE, SELFPAY ==
[2021-10-29 09:20] VITALS: BP 125/90; PULSE 88; TEMP 36.7; O2SAT 96
--- NOTE | 2021-10-29 09:31 | DI.US.S_ITS ---
PROCEDURE: US PERIP VENOUS LOW EXTREM LT INDICATIONS: EDEMA TECHNIQUE: Real-time imaging, as well as color and pulse Doppler interrogation, were performed of the lower extremity deep veins from the inguinal ligament to the popliteal fossa. COMPARISON: [facility], [facility] VENOUS LOW EXTREM LT, 08/25/2021, 9:46. FINDINGS: The common femoral, femoral and popliteal veins are normally compressible, and free of intraluminal thrombus. Color and pulse Doppler demonstrate normal phasic intraluminal flow. There is normal augmentation response to distal compression maneuver. IMPRESSION: No DVT in the left lower extremity. Dictated by: Hailey Alvarez M.D. on 10/29/2021 at 10:24 Approved by: Hailey Alvarez M.D. on 10/29/2021 at 10:25
--- NOTE | 2021-10-29 11:10 | DI.RAD.S_ITS ---
PROCEDURE: XR ANKLE LT MIN 3V INDICATIONS: pain w/ ambulation, red, swollen TECHNIQUE: 3 views of the ankle were acquired. COMPARISON: None. FINDINGS: Bones: Small crescent of calcific density just distal to the fibular head probably reflects small avulsion fracture. Ankle mortise is maintained. Moderate posterior and plantar calcaneal spurs noted. Soft tissues: No tibiotalar joint effusion. Achilles tendon appears normal. IMPRESSION: 1. Probable lateral malleolar avulsion fracture. Consider follow-up in 10-15 days to assess for interval healing. 2. Generalized soft tissue swelling Approved by: Joseph Austin M.D. on 10/29/2021 at 11:21
[2021-10-29 12:56] VITALS: BP 111/82; PULSE 80; O2SAT 94
--- NOTE | 2021-10-29 15:27 | ED_ITS ---
HPI - Extremity Problem <Josh Benito PA-C - Last Filed: 10/29/21 20:24> General Chief complaint: Extremity Problem,Nontraumatic Stated complaint: swollen ankle, came from PT Time Seen by Provider: 10/29/21 11:11 Source: patient Mode of arrival: Wheelchair History of Present Illness HPI Narrative: 71-year-old male with past medical history atrial fibrillation, depression, diabetes, hepatitis C, chronic venous stasis, arthritis of the knee, essential hypertension presents to the ED with a swollen, red, painful left ankle on the medial aspect. Patient denies trauma. Patient denies numbness, tingling, weakness. Related Data Previous Rx's Medication Instructions Recorded sildenafil 100 mg tablet See Rx Instructions .ROUTE 11/24/19 .COMPLEX #90 tab acetaminophen 300 mg-codeine 15 mg 1 tab PO Q8H PRN #30 tab 09/11/21 tablet amlodipine 5 mg tablet (Norvasc) 5 mg PO BID #180 tab 09/11/21 hydrochlorothiazide 25 mg tablet 50 mg PO DAILY #180 tab 09/11/21 metformin 1,000 mg tablet 1,000 mg PO BID #180 tab 09/11/21 rivaroxaban 20 mg tablet (Xarelto) 20 mg PO QPM #90 tab 09/11/21 rosuvastatin 20 mg tablet 20 mg PO DAILY #90 tab 09/11/21 metoprolol succinate 50 mg 50 mg PO DAILY #90 tab 09/20/21 tablet,extended release 24 hr cephalexin 500 mg capsule 500 mg PO QID 5 Days #20 cap 10/29/21 Allergies Allergy/AdvReac Type Severity Reaction Status Date / Time No Known Drug Allergies Allergy Verified 05/16/21 08:19 Review of Systems <Josh Benito PA-C - Last Filed: 10/29/21 20:24> Review of Systems ROS Unobtainable: All systems reviewed & are unremarkable except as noted in HPI and below Constitutional Constitutional: Denies chills, Denies fatigue, Denies fever(s), Denies frequent falls, Denies lethargy and Denies weakness Eyes Eyes: Denies change in vision, Denies eye discharge, Denies irritation and Denies loss of vision ENT Ears, Nose, Mouth, and Throat: Denies change in voice, Denies dizziness, Denies neck pain, Denies sore throat and Denies throat swelling Cardiovascular Cardiovascular: Denies chest pain, Denies irregular heart rhythm, Denies lightheadedness, Denies palpitations, Denies dyspnea, Denies dyspnea on exertion and Denies orthopnea Respiratory Respiratory: Denies cough, Denies dyspnea, Denies dyspnea on exertion and Denies wheezing Gastrointestinal Gastrointestinal: Denies abdominal pain, Denies change in bowel habits, Denies diarrhea, Denies nausea and Denies vomiting Genitourinary Genitourinary: Denies hematuria, Denies flank pain, Denies urinary incontinence and Denies urinary urgency Musculoskeletal Musculoskeletal: Denies back pain, Denies muscle weakness, Denies neck pain, Denies numbness and Denies tingling Comments: Left medial ankle pain, swelling, redness. Integumentary/Breasts Skin/Breast: Denies pruritus, Denies erythema, Denies rash and Denies wounds Neurologic Neurologic: Denies behavioral changes, Denies confusion, Denies dizziness, Denies frequent falls, Denies loss of vision, Denies numbness, Denies tingling and Denies weakness Psychiatric Psychiatric: Denies anxiety, Denies behavioral changes, Denies confusion, Denies depression, Denies homicidal ideation and Denies suicidal ideation Endocrine Endocrine: Denies fatigue, Denies flushing and Denies palpitations Hematologic/Lymphatic Hematologic/Lymphatic: Denies easy bruising Allergic/Immunologic Allergic/Immunologic: Denies urticaria, Denies throat swelling and Denies wheezing Patient History <Josh Benito PA-C - Last Filed: 10/29/21 20:24> Medical History Abdominal aortic aneurysm Atrial fibrillation Carpal tunnel syndrome Chronic venous stasis DMII (diabetes mellitus, type 2) Fractures Surgical History Anesthesia History of tonsillectomy History of umbilical hernia Social History Smoking Status: Former smoker Smoking Status: Former smoker alcohol intake frequency: 0-2 drinks per day Substance Use Type: marijuana Exam <Josh Benito PA-C - Last Filed: 10/29/21 20:24> Initial Vital Signs Initial Vital Signs: Vital Signs Temperature 98.1 F 10/29/21 09:20 Pulse Rate 88 10/29/21 09:20 Blood Pressure 125/90 10/29/21 09:20 Pulse Oximetry 96 10/29/21 09:20 Const General: cooperative, healthy appearing and comfortable [facility] Head: normal to inspection Eyes General: appearance normal, both eyes and all related structures Neck Neck: normal visual inspection Resp Effort & Inspection: normal respiratory effort Auscultation: clear to auscultation bilaterally Cardio Rate: regular rate Rhythm: regular rhythm Skin General: no rashes or lesions noted Neuro General: patient alert, patient awake and patient oriented x3 Extrem Other: Medial aspect of the left ankle appears swollen, erythematous, warm to touch. Skin intact. Strength and sensation intact. Full range of motion. Neurovascularly intact. Psych Appearance: grossly normal Mental Status: mental status grossly normal <Gabby Watt DO - Last Filed: 11/02/21 19:05> Initial Vital Signs Initial Vital Signs: Vital Signs Temperature 98.1 F 10/29/21 09:20 Pulse Rate 88 10/29/21 09:20 Blood Pressure 125/90 10/29/21 09:20 Pulse Oximetry 96 10/29/21 09:20 Course <Josh Benito PA-C - Last Filed: 10/29/21 20:24> Orders Ordered: ED Orders 10/29/21 09:31 perip venous low extrem lt Stat 10/29/21 11:10 XR ankle LT min 3V Stat Vital Signs Vital signs: Vital Signs - 8 hr 10/29/21 12:56 Pulse Rate 80 Blood Pressure 111/82 Pulse Oximetry 94 <DO Antolin George Last Filed: 11/02/21 19:05> Orders Ordered: ED Orders 10/29/21 09:31 perip venous low extrem lt Stat 10/29/21 11:10 XR ankle LT min 3V Stat Vital Signs Vital signs: Vital Signs - 8 hr 10/29/21 12:56 Pulse Rate 80 Blood Pressure 111/82 Pulse Oximetry 94 MDM - Extremity (Nontraumatic) <PRAVEEN Hanks Last Filed: 10/29/21 20:24> Imaging Data Extremity x-ray #1: Radiologist's Impression: PROCEDURE:? XR ANKLE LT MIN 3V ? INDICATIONS:? pain w/ ambulation, red, swollen ? TECHNIQUE:? 3 views of the ankle were acquired.? ? COMPARISON:? None. ? FINDINGS:? ? Bones:? Small crescent of calcific density just distal to the fibular head probably reflects small avulsion fracture.? Ankle mortise is maintained.? Moderate posterior and plantar calcaneal spurs noted. ? Soft tissues:? No tibiotalar joint effusion.? Achilles tendon appears normal.? ? ? IMPRESSION:? ? 1. Probable lateral malleolar avulsion fracture.? Consider follow-up in 10-15 days to assess for interval healing. ? 2. Generalized soft tissue swelling? Approved by: Joseph Austin M.D. on 10/29/2021 at 11:21? US - DVT: Radiologist's Impression: PROCEDURE:? US PERIPH VENOUS LOW EXTREM LT ? INDICATIONS:? EDEMA ? TECHNIQUE:? Real-time imaging, as well as color and pulse Doppler interrogation, were performed of the lower extremity deep veins from the inguinal ligament to the popliteal fossa.? ? COMPARISON:? [facility], PERIPH VENOUS LOW EXTREM LT, 08/25/2021, 9:46. ? FINDINGS:? The common femoral, femoral and popliteal veins are normally compressible, and free of intraluminal thrombus.? Color and pulse Doppler demonstrate normal phasic intraluminal flow.? There is normal augmentation response to distal compression maneuver. ? ? IMPRESSION:? No DVT in the left lower extremity. ? ? Dictated by: Hailey Alvarez M.D. on 10/29/2021 at 10:24 ? ? Approved by: Hailey Alvarez M.D. on 10/29/2021 at 10:25 ? [facility] Narrative Medical decision making narrative: 71-year-old male with past medical history atrial fibrillation, depression, diabetes, hepatitis C, chronic venous stasis, arthritis of the knee, essential hypertension presents to the ED with a swollen, red, painful left ankle on the medial aspect. Concern for DVT versus fracture/dislocation versus cellulitis. Ultrasound negative for acute findings. X-ray shows a small avulsion fracture on the lateral malleolus, however patient does not have any symptoms with lateral aspect of the ankle. Physical exam, symptoms likely due to cellulitis. Will treat with antibiotics. ED return precautions discussed. Patient verbalized understanding. Discharge Plan Departure Patient Disposition: Home Clinical Impression: Cellulitis Instructions: DI for Cellulitis -- Adult Activity Restrictions/Additional Instructions: You are evaluated in the ED today for left-sided ankle pain. No clots were identified on your ultrasound. Your x-ray did show a small, lateral ankle avulsion fracture, which requires no further treatment at this time. Also, your symptoms are on the medial or inner side of your ankle, and likely caused by a skin infection called cellulitis. You have been prescribed a course of antibiotics. Please complete the full course of antibiotics. Return to the ED if you notice the redness rapidly spreading, you experience fever, chills, nausea, vomiting. Prescriptions: New cephalexin 500 mg capsule 500 mg PO QID 5 Days Qty: 20 0RF No Action sildenafil 100 mg tablet See Rx Instructions .ROUTE .COMPLEX Qty: 90 2RF Dose Instruction: Take one tablet by mouth one time daily Rx Instructions: Take one tablet by mouth one time daily metoprolol succinate 50 mg tablet extended release 24 hr 50 mg PO DAILY Qty: 90 3RF rosuvastatin 20 mg tablet 20 mg PO DAILY Qty: 90 3RF amlodipine [Norvasc] 5 mg tablet 5 mg PO BID Qty: 180 3RF Rx Instructions: Take one tablet by mouth twice a day. hydrochlorothiazide 25 mg tablet 50 mg PO DAILY Qty: 180 3RF metformin 1,000 mg tablet 1,000 mg PO BID Qty: 180 3RF Rx Instructions: Take one tablet by mouth twice a day. Xarelto 20 mg tablet 20 mg PO QPM Qty: 90 3RF Rx Instructions: must administer with evening meal acetaminophen-codeine 300-15 mg tablet 1 tab PO Q8H PRN (Reason: pain) Qty: 30 0RF Referrals: David Bateman MD [Primary Care Provider] - <Gabby Watt DO - Last Filed: 11/02/21 19:05> [facility] ED Attending Carlos Attestation: I was immediately available in the department for consultation. Documentation has been reviewed.
== END 2021-10-29 13:01 | disposition home or self-care (01) ==
PROVIDERS: Emergency Provider Student in an Organized Health Care Education/Training Program; Family Provider Family Medicine; PCP Family Medicine
DX: L03.116 Cellulitis of left lower limb (principal); Z87.891 Personal history of nicotine dependence
CPT/HCPCS: 73610; 93971; 99284

== ENCOUNTER → 2021-12-03 06:49 | Outpatient (CLI) | payer MEDICARE, SELFPAY ==
[2021-12-03 07:46] LABS: Hemoglobin A1C% w Est Avg Glu 9.3 % (4.0-6.0)
[2021-12-03 07:49] LABS: Alanine Aminotransferase 20 IU/L (<50); Albumin 4.1 g/dL (3.5-5.0); Albumin Globulin Ratio 1.2 (1.0-2.8); Alkaline Phosphatase 58 U/L (38-126); Aspartate Aminotransferase 19 IU/L (17-59); BUN Creatinine Ratio 20.5 (6-22); Bilirubin Total 0.6 mg/dL (0.2-1.3); Blood Urea Nitrogen 16 mg/dL (9-20); Carbon Dioxide 27 mmol/L (22-32); Chloride 103 mmol/L (98-107); Cholesterol 126 mg/dL (140-199); Estimated Glomerular Filt Rate > 60.0 mL/min (>60); Globulin 3.4 g/dL (1.7-4.1); Glucose 189 mg/dL (80-110); HDL Cholesterol 42 mg/dL (40-60); HEMOLYSIS < 15 (0-50); LDL Cholesterol Calculated 67 mg/dL (<100); Potassium 3.7 mmol/L (3.4-5.1); Sodium 137 mmol/L (137-145); Total Protein 7.5 g/dL (6.3-8.2); Triglycerides 84 mg/dL (35-150); Uric Acid 4.5 mg/dL (3.5-8.5)
[2021-12-03 08:15] LABS: Prostate Specific Antigen Scrn 0.628 ng/mL (0.1-4.0)
[2021-12-03 09:09] LABS: TSH w/ Reflex to FT4 3.08 uIU/mL (0.47-4.68)
[2021-12-03 09:17] LABS: Creatinine Urine Random 55.3 mg/dL
[2021-12-03 09:26] LABS: Microalbumin Urine Random < 0.6 mg/dL (0-1.6)
== END ==
PROVIDERS: Family Provider Family Medicine; PCP Family Medicine; Referring Provider Family Medicine; Visit Provider Family Medicine
DX: E11.69 Type 2 diabetes mellitus with other specified complication (principal); Z12.5 Encounter for screening for malignant neoplasm of prostate; I10 Essential (primary) hypertension; I48.11 Longstanding persistent atrial fibrillation; I71.4 Abdominal aortic aneurysm, without rupture; M25.472 Effusion, left ankle
CPT/HCPCS: 36415; 80053; 80061; 82043; 82570; 83036; 84443; 84550; G0103

== ENCOUNTER → 2021-12-11 08:26 | Outpatient (CLI) | payer MEDICARE, SELFPAY ==
--- NOTE | 2021-12-11 | DI.ECHO.S_ITS ---
[facility]---------+ [facility] +---------+ : : [address] : [place] : : : : [id number] : : : : Phone: [phone]+ Echocardiogram Report + + :Name: LEIA DON Study Date: 12/11/2021 Height: 70 in : :[facility] ReadingLocation: Weight: 218 lb : : Gender: Male BSA: 2.2 m2 : :: 1950 Age: 71 yrs BP: 125/90 mmHg: :Reason For Study: DISORDERS OF ARTERIES AND ARTERIOLES : :Ordering Physician: LEWIS, : :YANIRA Performed By: Nandini Menendez : :Referring: YANIRA MORAES : + + Interpretation Summary 1) Normal left ventricular size with moderately reduced systolic function (EF 35-40%). 2) Apical akinesis is present. 3) Normal right ventricular size and function. 4) No significant valvular abnormalities. 5) The ascending aorta is moderately enlarged at 4.7cm. 6) Compared to the Echo done 07/27/2019, LVEF has decreased from 60-65% to 35- 40% on this study. Procedure: A two-dimensional transthoracic echocardiogram with color flow and Doppler was performed. The study quality was technically adequate. Comparison is made with the echocardiogram of 07/27/2019. The patient was in atrial fibrillation with heart rates between 64-88 bpm during the exam. Left Ventricle: The left ventricle is normal in size. There is mild concentric left ventricular hypertrophy. The ejection fraction is estimated to be 35-40%. Apical akinesis is present. Diastolic function could not be accurately assessed due to atrial fibrillation. Right Ventricle: The right ventricle is normal in size and function. Atria: The left atrium is severely dilated. Right atrial size is normal. There is no Doppler evidence for an interatrial shunt. Mitral Valve: The mitral valve is normal in structure and function. There is trace mitral regurgitation. Aortic Valve: The aortic valve is trileaflet. The aortic valve opens well. There is no aortic valve stenosis. There is trace aortic regurgitation. Tricuspid Valve: The tricuspid valve is normal in structure and function. There is mild tricuspid regurgitation. The right ventricular systolic pressure is estimated to be at least 19 mmHg based on an estimated right atrial pressure of 3 mm Hg. Pulmonic Valve: The pulmonic valve is not well seen, but is grossly normal. There is no pulmonic valvular regurgitation. Great Vessels: The aortic root is mildly dilated. The ascending aorta is moderately enlarged. The IVC is of normal diameter and collapses greater than 50% with a sniff. This suggests a low right atrial pressure of 3 mm Hg. Pericardium/ Pleura There is no pericardial effusion. There is no pleural effusion. MMode/2D Measurements & Calculations LVIDd: 4.5 cm LVOT diam: 2.4 cm LVIDs: 3.5 cm Ao root diam: 4.5 cm FS: 23.0 % asc Aorta Diam: 4.7 cm IVSd: 1.3 cm Ao Arch Diam (Prox Trans): 3.0 cm LVPWd: 1.3 cm LV alba. diameter/BSA (cm/m^2): 2.1 LV sys. diameter/BSA (cm/m^2): 1.6 LA A2 area: 39.1 cm2 RA long axis: 6.9 cm LA A4 area: 24.5 cm2 RA area: 23.4 cm2 LA length (vol): 6.9 cm RA vol: 67.1 ml LA vol: 118.3 ml RA : 31.0 ml/m2 LA vol index: 54.6 ml/m2 IVC diam: 0.97 cm RVD1 (basal): 3.0 cm RVD2 (mid): 2.4 cm TAPSE: 1.7 cm Doppler Measurements & Calculations Ao V2 max: 84.9 cm/sec AI P1/2t: 1043 msec Ao V2 mean: 65.2 cm/sec AI dec slope: 102.5 cm/sec2 Ao max P.9 mmHg Ao mean P.9 mmHg Ao V2 VTI: 17.2 cm MV E max adan: 80.1 cm/sec TR max adan: 201.4 cm/sec MV A max adan: 1.7 cm/sec TR max P.2 mmHg MV E/A: 46.8 Med Peak E' Adan: 7.2 cm/sec E/E' med: 11.2 Lat Peak E' Adan: 8.7 cm/sec E/E' lat: 9.2 E/e' average: 10.2 MV dec time: 0.17 sec Reading Physician:09:01 AM
== END ==
PROVIDERS: Family Provider Family Medicine; PCP Family Medicine; Referring Provider Internal Medicine Cardiovascular Disease; Visit Provider Internal Medicine Cardiovascular Disease
DX: I07.1 Rheumatic tricuspid insufficiency (principal); I77.810 Thoracic aortic ectasia; I77.89 Other specified disorders of arteries and arterioles
CPT/HCPCS: 93306

== ENCOUNTER → 2021-12-22 07:32 | Outpatient (CLI) | payer MEDICARE, SELFPAY ==
[2021-12-22 09:57] LABS: Add Manual Diff / Slide Review NO; Basophils Absolute Auto 0 /uL (0-100); Basophils Percent Auto 0.5 % (0-2); Eosinophils Absolute Auto 200 /uL (0-450); Eosinophils Percent Auto 2.7 % (2-4); Hematocrit 42.4 % (41-53); Lymphocytes Absolute Auto 1600 /uL (1100-4500); Lymphocytes Percent Auto 22.7 % (25-40); Mean Corpuscular HGB Conc 35.4 % (30-36); Mean Corpuscular Hemoglobin 30.8 PG (26-34); Monocytes Absolute Auto 600 /uL (0-900); Monocytes Percent Auto 8.8 % (3-14); Neutrophils Absolute Auto 4500 /uL (1500-7000); Neutrophils Percent Auto 65.3 % (50-75); Platelet Count 212 X10^3/uL (150-400); Red Blood Cell Count 4.87 X10^6/uL (4.5-5.9); White Blood Cell Count 6.8 X10^3/uL (4.5-11.0)
[2021-12-22 10:23] LABS: BUN Creatinine Ratio 24.4 (6-22); Blood Urea Nitrogen 19 mg/dL (9-20); Calcium 9.1 mg/dL (8.4-10.2); Carbon Dioxide 28 mmol/L (22-32); Chloride 101 mmol/L (98-107); Cholesterol 138 mg/dL (140-199); Estimated Glomerular Filt Rate > 60 mL/min (>60); Glucose 196 mg/dL (80-110); HDL Cholesterol 40 mg/dL (40-60); HEMOLYSIS 21 (0-50); LDL Cholesterol Calculated 76 mg/dL (<100); Potassium 3.9 mmol/L (3.4-5.1); Sodium 137 mmol/L (137-145); Triglycerides 110 mg/dL (35-150)
== END ==
PROVIDERS: Family Provider Family Medicine; PCP Family Medicine; Referring Provider Internal Medicine Cardiovascular Disease; Visit Provider Internal Medicine Cardiovascular Disease
DX: I10 Essential (primary) hypertension (principal); I25.10 Atherosclerotic heart disease of native coronary artery without angina pectoris; I25.84 Coronary atherosclerosis due to calcified coronary lesion
CPT/HCPCS: 36415; 80048; 80061; 85025

== ENCOUNTER → 2022-05-17 14:38 | Outpatient (CLI) | payer MEDICARE, SELFPAY ==
--- NOTE | 2022-05-17 14:40 | DI.US.S_ITS ---
PROCEDURE: US PERIPH VENOUS LOW EXTREM RT INDICATIONS: right lower ext swelling, pain. DVT rule out TECHNIQUE: Real-time imaging, as well as color and pulse Doppler interrogation, were performed of the lower extremity deep veins from the inguinal ligament to the popliteal fossa. COMPARISON: None. FINDINGS: The common femoral, femoral and popliteal veins are normally compressible, and free of intraluminal thrombus. Color and pulse Doppler demonstrate normal phasic intraluminal flow. There is normal augmentation response to distal compression maneuver. IMPRESSION: No right lower extremity DVT. Dictated by: Sunil Cerna M.D. on 05/17/2022 at 15:39 Approved by: Sunil Cerna M.D. on 05/17/2022 at 15:40
== END ==
PROVIDERS: Family Provider Family Medicine; PCP Family Medicine; Referring Provider Family Medicine; Visit Provider Family Medicine
DX: R60.0 Localized edema (principal)
CPT/HCPCS: 93971

== ENCOUNTER → 2022-06-12 09:10 | Outpatient (CLI) | payer MEDICARE, SELFPAY ==
[2022-06-12 09:57] LABS: Hemoglobin A1C% w Est Avg Glu 9.1 % (4.0-6.0)
[2022-06-12 10:16] LABS: Uric Acid 4.3 mg/dL (3.5-8.5)
== END ==
PROVIDERS: Family Provider Family Medicine; PCP Family Medicine; Referring Provider Family Medicine; Visit Provider Family Medicine
DX: E11.69 Type 2 diabetes mellitus with other specified complication (principal); I10 Essential (primary) hypertension; I87.8 Other specified disorders of veins; R60.0 Localized edema
CPT/HCPCS: 36415; 83036; 84550

== ENCOUNTER → 2022-07-02 13:35 | Outpatient (CLI) | payer MEDICARE, SELFPAY | PROVIDERS: Family Provider Family Medicine; PCP Family Medicine; Referring Provider Family Medicine; Visit Provider Family Medicine ==

== ENCOUNTER → 2022-12-04 06:35 | Outpatient (CLI) | payer MEDICARE, SELFPAY ==
[2022-12-04 08:36] LABS: Creatinine Urine Random 79.6 mg/dL
[2022-12-04 08:40] LABS: Alanine Aminotransferase 23 IU/L (<50); Albumin 3.9 g/dL (3.5-5.0); Albumin Globulin Ratio 1.2 (1.0-2.8); Alkaline Phosphatase 60 U/L (38-126); Aspartate Aminotransferase 20 IU/L (17-59); BUN Creatinine Ratio 26.8 (6-22); Bilirubin Total 0.5 mg/dL (0.2-1.3); Blood Urea Nitrogen 19 mg/dL (9-20); Carbon Dioxide 28 mmol/L (22-32); Chloride 101 mmol/L (98-107); Cholesterol 136 mg/dL (140-199); Estimated Glomerular Filt Rate > 60 mL/min (>60); Globulin 3.3 g/dL (1.7-4.1); Glucose 129 mg/dL (80-110); HDL Cholesterol 41 mg/dL (40-60); HEMOLYSIS < 15 (0-50); LDL Cholesterol Calculated 76 mg/dL (<100); Potassium 3.6 mmol/L (3.4-5.1); Sodium 138 mmol/L (137-145); Total Protein 7.2 g/dL (6.3-8.2); Triglycerides 94 mg/dL (35-150)
[2022-12-04 08:43] LABS: Microalbumin Urine Random < 0.6 mg/dL (0-1.6)
== END ==
PROVIDERS: Family Provider Family Medicine; PCP Family Medicine; Referring Provider Family Medicine; Visit Provider Family Medicine
DX: E11.69 Type 2 diabetes mellitus with other specified complication (principal); I10 Essential (primary) hypertension; I48.11 Longstanding persistent atrial fibrillation; I71.40 Abdominal aortic aneurysm, without rupture, unspecified
CPT/HCPCS: 36415; 80053; 80061; 82043; 82570; 83036

== ENCOUNTER → 2023-04-11 09:40 | Outpatient (RCR) | payer MEDICARE, SELFPAY ==
--- NOTE | 2021-09-19 09:40 | PT.OIE ---
Current Diagnoses Unilateral primary osteoarthritis, left knee (09/19/21) Past Medical History (Last Reviewed 08/25/21 @ 13:30 by Riky Schreiber DO) Abdominal aortic aneurysm Atrial fibrillation Carpal tunnel syndrome Chronic venous stasis DMII (diabetes mellitus, type 2) Fractures History of tonsillectomy Past Surgical History (Last Reviewed 08/25/21 @ 13:30 by Riky Schreiber DO) Anesthesia History of tonsillectomy History of umbilical hernia Visit Care Team Role Provider Type David Bateman MD Family Provider Physician Primary Care Provider Specialty: Family Practice Address: [address] [place] [address], [id number] Email: [email or web address] Menjivar MD Attending Provider Physician Referring Provider Specialty: Orthopedic Surgery Address: [address] [place] [address], [id number] Email: [email or web address] Physical Therapy Initial Evaluation PT-OP-A Visit Information Start: 09/19/21 09:43 Freq: Status: Active Protocol: Document 09/19/21 09:44 [facility] (Rec: 09/19/21 09:58 [facility] [id number]) Out-Patient Physical Therapy Visit Information Visit Information Visit Type Initial Evaluation Visit Start Time 09:45 Visit Stop Time 10:30 Total Visit Minutes 45 Visit Number 1 Evaluation Information Evaluation Date 09/19/21 PT-OP-B Current Condition Start: 09/19/21 09:43 Freq: Status: Active Protocol: Document 09/19/21 09:44 [facility] (Rec: 09/19/21 09:58 [facility] [id number]) Current Condition History of Current Condition Onset Date 08/21/21 left partial knee replacement Current Complaints chief complaints of decreased knee ROM, decreased strength, and swelling. History of Current Condition pt took his last oxycodone for pain and took the last one today, taking codene as well. Pt ambulated into PT with a SPC. He has been using a cane x 3 weeks. He was experiencing swelling but feels this has gotten better. Pain is 6/10 now. Pain is localized to his knee now. He is feeling that his back is starting to go out now. He lives in a single level house. 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 He is also planning on having the right knee replaced as well. He wants to be able to walk pain free at least a mile a day. 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 Prior Functional Status Baseline Function- ADL's Independent Baseline Function- Mobility Independent Current Functional Impairments (Reported) Functional Limitations- Mobility/Gait ambulating with SPC and limited to walking 1 block PT-OP-C Subjective Start: 09/19/21 09:43 Freq: Status: Active Protocol: Document 09/19/21 09:45 [facility] (Rec: 09/20/21 09:34 [facility] [id number]) Patient Questionnaires Lower Extremity Functional Scale LEFS Score 6 LEFS Impairment 80 to 99% Impaired (Score 1-16 ) OP-PT Pain Assessment Location left knee Pain Location Details left knee Intensity 6 Scale Used Numeric (0 - 10) Description Sharp,With Movement PT-OP-F Manual Assessment Start: 09/19/21 09:43 Freq: Status: Active Protocol: Document 09/19/21 09:45 [facility] (Rec: 09/20/21 09:34 [facility] [id number]) Manual Assessments Soft Tissue Assessment Soft Tissue Mobility Assessment swelling noted in the left foot, ankle, and at the knee joint PT-OP-J Posture/Palpation/Skin Start: 09/19/21 09:43 Freq: Status: Active Protocol: Document 09/19/21 09:45 [facility] (Rec: 09/20/21 09:34 [facility] [id number]) Palpation Assessment Location left knee Palpation Location left knee Palpation Findings Edema Palpation Details well healed incision for medial knee partial knee replacement PT-OP-K Range of Motion Start: 09/19/21 09:43 Freq: Status: Active Protocol: Document 09/19/21 09:45 [facility] (Rec: 09/20/21 09:34 [facility] [id number]) Knee Goniometric Range of Motion Knee Right Knee ROM WFL Yes left knee Patient Position Supine Flexion Active (degrees) 100 Extension Active (degrees) 15 PT-OP-M Strength Start: 09/19/21 09:43 Freq: Status: Active Protocol: Document 09/19/21 09:45 [facility] (Rec: 09/20/21 09:34 [facility] [id number]) Knee Strength Knee Manual Muscle Testing Left Flexion (S2) 3 Fair Extension (L3) 2+ Poor+ Comments pt is able to perform a quad set with towel under the knee, 15 degree quad lag with attempt to perform a SLR PT-OP-N Lymphedema Start: 09/20/21 09:34 Freq: Status: Active Protocol: Document 09/19/21 09:45 [facility] (Rec: 09/20/21 09:36 [facility] [id number]) Lymphedema Measurements Lower Extremity Circumference Measurements right Medial Malleolus 25.4 cm Knee Joint 40.64 cm left Medial Malleolus 26.67 cm Knee Joint 41.91 cm PT-OP-Q Treatments Start: 09/19/21 09:43 Freq: Status: Active Protocol: Document 09/19/21 09:45 [facility] (Rec: 09/20/21 09:34 [facility] [id number]) Cardio Equipment Bicycle (Upright) Duration (Minutes) 8 Resistance 0 Seat Position 4 Other pt tolerated this well and made a full resolution right away Therapeutic Exercises Supine Exercises Left knee extension stretch Equipment Used towel roll under the ankle Reps/Minutes hold 1-2 min Comments pt tolerated this well quad sets Equipment Used towel roll under the left knee Reps/Minutes x 10 reps hold x 5 seconds heel slides Reps/Minutes 20 reps Sitting Exercises seated knee extension stretch Reps/Minutes holding x 1 min with left foot resting on a chair to stretch into extension seated knee flexion/extension Reps/Minutes x 10 reps PT-OP-T Assessment and Plan Start: 09/19/21 09:43 Freq: Status: Active Protocol: Document 09/19/21 09:45 [facility] (Rec: 09/20/21 09:34 [facility] [id number]) Physical Therapy Assessment Goals 4 Impairment Antalgic gait pattern, pt using SPC with decreased stride length Retirement Goal (LTG) Zak is able to return to walking without a AD and is able to work towards 1 mile distance or greater LTG Duration 8 weeks 3 Impairment Swelling of the left knee, ankle, and foot as compared to the right joint line is 16.5 left and 16 right around ankle at the level of the malleolus is 10.5 L and 10 R Retirement Goal (LTG) Zak has equal circumferential measurements B both at the joint line and ankle 2 Impairment Decreased strength of the left knee s/p partial knee replacement Short Term Goal (STG) Zak is able to perform 10 SLR without quad lag STG Duration 4 weeks 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 He has not had any PT until today and is ambulating into PT with a SPC. Zak rates his pain as 6/10 and is eager to learn exercises he can do at home for his knee. 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 His other goals include being able to walk x 1 mile. With examination today he is able to perform AROM knee flexion to 100 degrees and lacks 15 degrees extension. He is swollen in the area of the joint line on the left, in his ankle and foot. Joint line measures 16 .5 left and 16 right. He is able to perform a quad set with towel under his knee but has a 15 degree lag when attempting a SLR. He has antalgic gait pattern with SPC and is limited to a block with his gait distance. He was started on the upright bike today and was able to make a full resolution. Zak is a good candidate for PT Physical Therapy Plan Frequency and Duration Frequency of Treatment 2x/Week Duration of Treatment 8 Plan of Care Start Date 09/19/21 Plan of Care End Date 11/14/21 Therapeutic Interventions Therapeutic Interventions Balance Training,Home Exercise Program,Manual Therapy, Patient/Caregiver Education, Self-Care/Home Management,Soft Tissue Mobilization, Therapeutic Activities, Therapeutic Exercises Modalities Cold Pack/Ice Massage,Electric Stimulation Next Visit Focus/Plan Next Note Type Treatment Note Next Visit Plan review exercises given at today's visit, upright bike, begin gait and stair training with SPC
--- NOTE | 2021-09-19 09:45 | PT.OPPOC ---
Physical, Occupational & Speech Therapy At [facility] Current Diagnoses Unilateral primary osteoarthritis, left knee (09/19/21) Visit Care Team Role Provider Type David Bateman MD Family Provider Physician Primary Care Provider Specialty: Family Practice Address: [address] [place] [address], [id number] Email: [email or web address] Eugene Menjivar MD Attending Provider Physician Referring Provider Specialty: Orthopedic Surgery Address: [address] [place] [address], [id number] Email: [email or web address] Plan Of Care PT-OP-T Assessment and Plan Start: 09/19/21 09:43 Freq: Status: Active Protocol: Document 09/19/21 09:45 [facility] (Rec: 09/20/21 09:34 [facility] [id number]) Physical Therapy Assessment Goals 4 Impairment Antalgic gait pattern, pt using SPC with decreased stride length Snf Goal (LTG) Zak is able to return to walking without a AD and is able to work towards 1 mile distance or greater LTG Duration 8 weeks 3 Impairment Swelling of the left knee, ankle, and foot as compared to the right joint line is 16.5 left and 16 right around ankle at the level of the malleolus is 10.5 L and 10 R 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 (LTG) Zak has equal circumferential measurements B both at the joint line and ankle 2 Impairment Decreased strength of the left knee s/p partial knee replacement Short Term Goal (STG) Zak is able to perform 10 SLR without quad lag STG Duration 4 weeks Snf Goal (LTG) Zak is able to perform 10 sit -stands without use of his hands LTG Duration x 10 reps 1 Impairment Decreased L knee ROM s/p partial (medial) knee replacement on 08/21/21 AROM knee flexion 100, extension 15 Short Term Goal (STG) Zak is able to perform full knee flexion to 120 or greater and has 0 degrees knee extension STG Duration 4 weeks Assessment Summary Assessment Zak is a 71 year old male referred to PT s/p a medial compartment partial knee replacement of the left knee on 08/21/2021. He has not had any PT until today and is ambulating into PT with a SPC. Zak rates his pain as 6/10 and is eager to learn exercises he can do at home for his knee. 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 His other goals include being able to walk x 1 mile. With examination today he is able to perform AROM knee flexion to 100 degrees and lacks 15 degrees extension. He is swollen in the area of the joint line on the left, in his ankle and foot. Joint line measures 16 .5 left and 16 right. He is able to perform a quad set with towel under his knee but has a 15 degree lag when attempting a SLR. He has antalgic gait pattern with SPC and is limited to a block with his gait distance. He was started on the upright bike today and was able to make a full resolution. Zak is a good candidate for PT Physical Therapy Plan Frequency and Duration Frequency of Treatment 2x/Week Duration of Treatment 8 Plan of Care Start Date 09/19/21 Plan of Care End Date 11/14/21 Therapeutic Interventions Therapeutic Interventions Balance Training,Home Exercise Program,Manual Therapy, Patient/Caregiver Education, Self-Care/Home Management,Soft Tissue Mobilization, Therapeutic Activities, Therapeutic Exercises Modalities Cold Pack/Ice Massage,Electric Stimulation Next Visit Focus/Plan Next Note Type Treatment Note Next Visit Plan review exercises given at today's visit, upright bike, begin gait and stair training with SPC Plan of Care Dates Plan of Care Start Date 09/19/21 Plan of Care End Date 11/14/21 Electronically Signed by: Winnie Jules, PT 09/20/21 [id number] Please Sign and Return: I have reviewed this Plan of Care and certify that the skilled therapy services above are required to meet the patient?s needs. Physician Signature Date Printed Name and Credentials Clinical Instructor Signature Printed Name and Credentials
--- NOTE | 2021-09-21 09:45 | PT.OTN ---
Current Diagnoses Unilateral primary osteoarthritis, left knee (09/21/21) Physical Therapy Treatment Note PT-OP-A Visit Information Start: 09/19/21 09:43 Freq: Status: Active Protocol: Document 09/21/21 09:00 SP (Rec: 09/21/21 09:49 SP [id number]) Out-Patient Physical Therapy Visit Information Visit Information Visit Type Treatment Note Visit Start Time 09:00 Visit Stop Time 09:45 Total Visit Minutes 45 Visit Number 2 Number of JANITORIAL SERVICES SUPERVISOR Visits 1 Evaluation Information Evaluation Date 09/19/21 PT-OP-B Current Condition Start: 09/19/21 09:43 Freq: Status: Active Protocol: Document 09/19/21 09:44 [facility] (Rec: 09/19/21 09:58 [facility] [id number]) Current Condition History of Current Condition Onset Date 08/21/21 left partial knee replacement Current Complaints chief complaints of decreased knee ROM, decreased strength, and swelling. History of Current Condition pt took his last oxycodone for pain and took the last one today, taking codene as well. Pt ambulated into PT with a SPC. He has been using a cane x 3 weeks. He was experiencing swelling but feels this has gotten better. Pain is 6/10 now. Pain is localized to his knee now. He is feeling that his back is starting to go out now. He lives in a single level house. 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 He is also planning on having the right knee replaced as well. He wants to be able to walk pain free at least a mile a day. 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 States compliant with HEP and thinks gaining ROM and hasn't had to take any medication in past 24 hrs and pain low 3-4 up to 5/10 at times. Was able to sleep through the night. Woke up once but able to get back to sleep. Able to stand and prepare meals without seated brake. Is taking laps walking in house. PT-OP-F Manual Assessment Start: 09/19/21 09:43 Freq: Status: Active Protocol: Document 09/19/21 09:45 [facility] (Rec: 09/20/21 09:34 [facility] [id number]) Manual Assessments Soft Tissue Assessment Soft Tissue Mobility Assessment swelling noted in the left foot, ankle, and at the knee joint PT-OP-J Posture/Palpation/Skin Start: 09/19/21 09:43 Freq: Status: Active Protocol: Document 09/19/21 09:45 [facility] (Rec: 09/20/21 09:34 [facility] [id number]) Palpation Assessment Location left knee Palpation Location left knee Palpation Findings Edema Palpation Details well healed incision for medial knee partial knee replacement PT-OP-K Range of Motion Start: 09/19/21 09:43 Freq: Status: Active Protocol: Document 09/19/21 09:45 [facility] (Rec: 09/20/21 09:34 [facility] [id number]) Knee Goniometric Range of Motion Knee Right Knee ROM WFL Yes left knee Patient Position Supine Flexion Active (degrees) 100 Extension Active (degrees) 15 PT-OP-M Strength Start: 09/19/21 09:43 Freq: Status: Active Protocol: Document 09/19/21 09:45 [facility] (Rec: 09/20/21 09:34 [facility] [id number]) Knee Strength Knee Manual Muscle Testing Left Flexion (S2) 3 Fair Extension (L3) 2+ Poor+ Comments pt is able to perform a quad set with towel under the knee, 15 degree quad lag with attempt to perform a SLR PT-OP-N Lymphedema Start: 09/20/21 09:34 Freq: Status: Active Protocol: Document 09/19/21 09:45 [facility] (Rec: 09/20/21 09:36 [facility] [id number]) Lymphedema Measurements Lower Extremity Circumference Measurements right Medial Malleolus 25.4 cm Knee Joint 40.64 cm left Medial Malleolus 26.67 cm Knee Joint 41.91 cm PT-OP-Q Treatments Start: 09/19/21 09:43 Freq: Status: Active Protocol: Document 09/21/21 09:00 SP (Rec: 09/21/21 09:49 SP [id number]) Cardio Equipment Bicycle (Upright) Duration (Minutes) 8 Resistance 0 Seat Position 4 for flexion 5 min >7 for extension 5 mi n Other good tolerance, full revolution (upbike at home) Therapeutic Exercises Supine Exercises prone hang Supine Exercise Name added to HEP, knee flexion range can between support if needed. Side left Reps/Minutes 30 x3 Comments good feedback little discomfort 2/10 but states good benefits knee flexion over tball Supine Exercise Name added to HEP Side left Resistance AAROM Equipment Used 55cm ball, strap on foot Reps/Minutes 2x10 Comments good performance 120 deg Left knee extension stretch Supine Exercise Name reviewed HEP Equipment Used towel roll under the ankle Reps/Minutes hold 1-2 min Comments pt tolerated this well quad sets Supine Exercise Name discussed not performed, compliant at home Equipment Used towel roll under the left knee Reps/Minutes x 10 reps hold x 5 seconds heel slides Side left Resistance AROM Reps/Minutes 20 reps Comments 110> 115 post knee flexion over ball Sitting Exercises self STMs Sitting Exercise Name quad, HS, calf, ITB, adductor Side left Equipment Used roll and see saw rocking. Reps/Minutes 1 min total Comments good feedback response seated knee extension stretch Reps/Minutes holding x 1 min with left foot resting on a chair to stretch into extension seated knee flexion/extension Reps/Minutes x 10 reps Gait Training Gait Activity gait w/ SPC Device Used SPC Level of Assistance S Surface firm Treatment Focus trunk alignment, 2 pt gait L knee extension stability Comments Ed with SPC 50 ft, 20 ft x3 laps in mirror, improved normalized demonstration, decrease lateral wt shift. Manual Therapy Treatment Soft Tissue Mobilization scar mob Body Location L knee Comments multidirectional, manual and ed self application- good resposne, little tender but less tight Joint Mobilizations patella mob Joint L sup/ inf/ med/ lat Comments increase mobililty post manual , ed self application Self-Care/Home Management Treatment Education Patient Education Body Mechanics,Home Exercise Program,Joint Protection, Posture,Safety Other Education Extra time spent proper use of SPC in RUE patterning with LLE, had to increase height 1 notch for proper fit. Improved trunk and postural alignment. 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 Goal (LTG) Zak has equal circumferential measurements B both at the joint line and ankle 2 Impairment Decreased strength of the left knee s/p partial knee replacement Short Term Goal (STG) Zak is able to perform 10 SLR without quad lag STG Duration 4 weeks 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 Pt good performance and understanding of HEP. Pt improved gait post education in use in RUE and performance in mirror for self postural awareness, cued for quad facilitation and straight alignment over LLE during midstance for safety stability . Physical Therapy Plan Frequency and Duration Frequency of Treatment 2x/Week Duration of Treatment 8 Plan of Care Start Date 09/19/21 Plan of Care End Date 11/14/21 Therapeutic Interventions Therapeutic Interventions Balance Training,Home Exercise Program,Manual Therapy, Patient/Caregiver Education, Self-Care/Home Management,Soft Tissue Mobilization, Therapeutic Activities, Therapeutic Exercises Modalities Cold Pack/Ice Massage,Electric Stimulation Next Visit Focus/Plan Next Note Type Treatment Note Next Visit Plan Next tx: continue upright bike warm up, continue gait in mirror, review HEP, recheck AROM L knee, assess stair training with SPC, has 1 small step to enter no rails.
--- NOTE | 2021-09-26 11:46 | PT.OTN ---
Current Diagnoses Unilateral primary osteoarthritis, left knee (09/26/21) Physical Therapy Treatment Note PT-OP-A Visit Information Start: 09/19/21 09:43 Freq: Status: Active Protocol: Document 09/26/21 09:45 [facility] (Rec: 09/26/21 10:32 [facility] [id number]) Out-Patient Physical Therapy Visit Information Visit Information Visit Type Treatment Note Visit Start Time 09:45 Visit Stop Time 10:40 Total Visit Minutes 55 Visit Number 3 PT-OP-B Current Condition Start: 09/19/21 09:43 Freq: Status: Active Protocol: Document 09/19/21 09:44 [facility] (Rec: 09/19/21 09:58 [facility] [id number]) Current Condition History of Current Condition Onset Date 08/21/21 left partial knee replacement Current Complaints chief complaints of decreased knee ROM, decreased strength, and swelling. History of Current Condition pt took his last oxycodone for pain and took the last one today, taking codene as well. Pt ambulated into PT with a SPC. He has been using a cane x 3 weeks. He was experiencing swelling but feels this has gotten better. Pain is 6/10 now. Pain is localized to his knee now. He is feeling that his back is starting to go out now. He lives in a single level house. 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 He is also planning on having the right knee replaced as well. He wants to be able to walk pain free at least a mile a day. 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 He rates his pain as 4/10 today. Pain is worst first thing in the morning. He is strying to do more now and has tried standing to cook. He also reports he is wearing his compression stockings more now Patient Reported Progress Improving PT-OP-F Manual Assessment Start: 09/19/21 09:43 Freq: Status: Active Protocol: Document 09/19/21 09:45 [facility] (Rec: 09/20/21 09:34 [facility] [id number]) Manual Assessments Soft Tissue Assessment Soft Tissue Mobility Assessment swelling noted in the left foot, ankle, and at the knee joint PT-OP-J Posture/Palpation/Skin Start: 09/19/21 09:43 Freq: Status: Active Protocol: Document 09/19/21 09:45 [facility] (Rec: 09/20/21 09:34 [facility] [id number]) Palpation Assessment Location left knee Palpation Location left knee Palpation Findings Edema Palpation Details well healed incision for medial knee partial knee replacement PT-OP-K Range of Motion Start: 09/19/21 09:43 Freq: Status: Active Protocol: Document 09/19/21 09:45 [facility] (Rec: 09/20/21 09:34 [facility] [id number]) Knee Goniometric Range of Motion Knee Right Knee ROM WFL Yes left knee Patient Position Supine Flexion Active (degrees) 100 Extension Active (degrees) 15 PT-OP-M Strength Start: 09/19/21 09:43 Freq: Status: Active Protocol: Document 09/19/21 09:45 [facility] (Rec: 09/20/21 09:34 [facility] [id number]) Knee Strength Knee Manual Muscle Testing Left Flexion (S2) 3 Fair Extension (L3) 2+ Poor+ Comments pt is able to perform a quad set with towel under the knee, 15 degree quad lag with attempt to perform a SLR PT-OP-N Lymphedema Start: 09/20/21 09:34 Freq: Status: Active Protocol: Document 09/19/21 09:45 [facility] (Rec: 09/20/21 09:36 [facility] [id number]) Lymphedema Measurements Lower Extremity Circumference Measurements right Medial Malleolus 25.4 cm Knee Joint 40.64 cm left Medial Malleolus 26.67 cm Knee Joint 41.91 cm PT-OP-Q Treatments Start: 09/19/21 09:43 Freq: Status: Active Protocol: Document 09/26/21 09:45 [facility] (Rec: 09/26/21 10:32 [facility] [id number]) Cardio Equipment Bicycle (Upright) Duration (Minutes) 10 Resistance 0 Seat Position 4 Therapeutic Exercises Supine Exercises ball rolls into knee flexion Reps/Minutes x 20 reps prone hang Supine Exercise Name added to HEP, knee flexion range can between support if needed. Side left Reps/Minutes 4 min Comments pt tolerated well, gentle calf massage performed during stretch Left knee extension stretch Supine Exercise Name reviewed HEP Equipment Used towel roll under the ankle Reps/Minutes hold 1-2 min Comments pt tolerated this well quad sets Supine Exercise Name quad sets Equipment Used towel roll under the left knee Reps/Minutes x 10 reps hold x 5 seconds Comments pt still shakey with quad sets , needs cues to hold x 5 seconds Standing Exercises standing calf stretch Reps/Minutes x 2 reps holding 30 sec Comments pt can do this stretch at home standing calf stretch on the jason Reps/Minutes hold 1-2 min Comments also tried heel hang off the stairs Gait Training Gait Activity gait w/ SPC Device Used [facility] Level of Assistance SBA Surface firm Treatment Focus trunk alignment, 2 pt gait L knee extension stability Comments Ed with SPC 100 feet, discussed left foot pronation and need for arch supports or better shoes as patient was wearing slippers today Manual Therapy Treatment Soft Tissue Mobilization Left ITB release Body Location left ITB release Mobilization Type Myofascial Release Body Position Supine Comments pt had complained about left sided ITB tightness, he tolerated MFR well today scar mob Body Location L knee Comments multidirectional, manual and ed self application- good resposne, little tender but less tight PT-OP-R Modalities Start: 09/26/21 11:42 Freq: Status: Active Protocol: Document 09/26/21 09:45 [facility] (Rec: 09/26/21 11:44 [facility] [id number]) Hot Pack/Cold Pack Treatment Cold Pack Location left knee anterior and posterior Patient Position Hooklying Treatment Duration (minutes) 10 Patient Tolerance Good PT-OP-T Assessment and Plan Start: 09/19/21 09:43 Freq: Status: Active Protocol: Document 09/26/21 09:45 [facility] (Rec: 09/26/21 10:32 [facility] [id number]) Physical Therapy Assessment Assessment Summary Assessment with gait training today I noticed Praveen's left foot pronates more than his right. He was wearing slippers today. We talked about super feet arch supports and wearing tennis shoes with good arches to help improve his gait. I did do some manual release on the left ITB as pt had complained about lateral leg tightness. I had pt stay x 10 minutes for ice to his left knee following tx. Physical Therapy Plan Frequency and Duration Frequency of Treatment 2x/Week Duration of Treatment 8 Plan of Care Start Date 09/19/21 Plan of Care End Date 11/14/21 Therapeutic Interventions Therapeutic Interventions Balance Training,Home Exercise Program,Manual Therapy, Patient/Caregiver Education, Self-Care/Home Management,Soft Tissue Mobilization, Therapeutic Activities, Therapeutic Exercises Modalities Cold Pack/Ice Massage,Electric Stimulation Next Visit Focus/Plan Next Note Type Treatment Note Next Visit Plan continue bike for warm up, knee ROM exercises focusing on full knee extension, stair training as this was not done at today's visit. Strengthing ex for the knee
--- NOTE | 2021-09-28 09:51 | PT.OTN ---
Addendum entered and electronically signed by Katherine Govea, OCTAVIANO 09/28/21 10:11: Pt declined modalities, stated will do at home later. Original Note: Current Diagnoses Unilateral primary osteoarthritis, left knee (09/28/21) Physical Therapy Treatment Note PT-OP-A Visit Information Start: 09/19/21 09:43 Freq: Status: Active Protocol: Document 09/28/21 08:55 [facility] (Rec: 09/28/21 10:10 [facility] [id number]) Out-Patient Physical Therapy Visit Information Visit Information Visit Type Treatment Note Visit Start Time 08:55 Visit Stop Time 09:51 Total Visit Minutes 56 Visit Number 4 Number of INFORMATION ENGINEER Visits 1 Evaluation Information Evaluation Date 09/19/21 PT-OP-B Current Condition Start: 09/19/21 09:43 Freq: Status: Active Protocol: Document 09/19/21 09:44 [facility] (Rec: 09/19/21 09:58 [facility] [id number]) Current Condition History of Current Condition Onset Date 08/21/21 left partial knee replacement Current Complaints chief complaints of decreased knee ROM, decreased strength, and swelling. History of Current Condition pt took his last oxycodone for pain and took the last one today, taking codene as well. Pt ambulated into PT with a SPC. He has been using a cane x 3 weeks. He was experiencing swelling but feels this has gotten better. Pain is 6/10 now. Pain is localized to his knee now. He is feeling that his back is starting to go out now. He lives in a single level house. 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 He is also planning on having the right knee replaced as well. He wants to be able to walk pain free at least a mile a day. 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 He reports was sore after last tx the calf stretch off step to much felt like pulled something holding for another day before does off floor, but otherwise ther ex was good work. His L knee still wakes him up but just puts ice on the able to get back to sleep. Pt mentioned his ITB seems tight and using rolling pin roll/ seesaw rocking to musculature and helped. PT-OP-F Manual Assessment Start: 09/19/21 09:43 Freq: Status: Active Protocol: Document 09/19/21 09:45 [facility] (Rec: 09/20/21 09:34 [facility] [id number]) Manual Assessments Soft Tissue Assessment Soft Tissue Mobility Assessment swelling noted in the left foot, ankle, and at the knee joint PT-OP-J Posture/Palpation/Skin Start: 09/19/21 09:43 Freq: Status: Active Protocol: Document 09/19/21 09:45 [facility] (Rec: 09/20/21 09:34 [facility] [id number]) Palpation Assessment Location left knee Palpation Location left knee Palpation Findings Edema Palpation Details well healed incision for medial knee partial knee replacement PT-OP-K Range of Motion Start: 09/19/21 09:43 Freq: Status: Active Protocol: Document 09/28/21 08:55 [facility] (Rec: 09/28/21 10:10 [facility] [id number]) Knee Goniometric Range of Motion Knee left knee Knee ROM WFL No Patient Position Supine Flexion Active (degrees) 120 Extension Passive (degrees) 5 Comments 5-120 deg AAROM w/ strap 126 deg PT-OP-M Strength Start: 09/19/21 09:43 Freq: Status: Active Protocol: Document 09/19/21 09:45 [facility] (Rec: 09/20/21 09:34 [facility] [id number]) Knee Strength Knee Manual Muscle Testing Left Flexion (S2) 3 Fair Extension (L3) 2+ Poor+ Comments pt is able to perform a quad set with towel under the knee, 15 degree quad lag with attempt to perform a SLR PT-OP-N Lymphedema Start: 09/20/21 09:34 Freq: Status: Active Protocol: Document 09/19/21 09:45 [facility] (Rec: 09/20/21 09:36 [facility] [id number]) Lymphedema Measurements Lower Extremity Circumference Measurements right Medial Malleolus 25.4 cm Knee Joint 40.64 cm left Medial Malleolus 26.67 cm Knee Joint 41.91 cm PT-OP-Q Treatments Start: 09/19/21 09:43 Freq: Status: Active Protocol: Document 09/28/21 08:55 [facility] (Rec: 09/28/21 10:10 [facility] [id number]) Cardio Equipment Bicycle (Upright) Duration (Minutes) 10 Resistance 0 Seat Position 7> 5 last 2 minutes Other full revolution Therapeutic Exercises Supine Exercises SAQ Side left Resistance AROM Equipment Used short blue foam roll Reps/Minutes 8 min Comments w/ Bahamian stim cycle 4/12 Left knee extension stretch Supine Exercise Name discussed is doing at home Side left Equipment Used towel roll under the ankle Reps/Minutes hold 1-2 min Comments pt tolerated this well quad sets Supine Exercise Name quad sets- discussed is doing at home Equipment Used towel roll under the left knee Reps/Minutes x 10 reps hold x 5 seconds Comments pt still shakey with quad sets , needs cues to hold x 5 seconds heel slides Side left Resistance AROM 5- 120deg, AAROM w/ strap 126 deg Reps/Minutes 20 reps Comments 110> 115 post knee flexion over ball Sidelying Exercises hip abd Sidelying Exercise Name added to HEP Side left Resistance AROM Reps/Minutes 2 sec hold x10 Comments no pain just weak Sitting Exercises self STMs Sitting Exercise Name quad/HS/adductor/ calf/ ITB- discussed doing at home very helpful Side left Equipment Used roll and see saw rocking. Reps/Minutes 1 min total Comments good feedback response Standing Exercises TKE Standing Exercise Name added to HEP Side left Resistance TB#1 Equipment Used contact Reps/Minutes hold 3 sec x15 reps Comments good feedback response standing calf stretch Standing Exercise Name hold 1 more day, due to think was to much after last tx but will continue Reps/Minutes x 2 reps holding 30 sec Comments pt can do this stretch at home standing calf stretch on the jason Standing Exercise Name discussed, pt thinks was to much hold 1 more day Reps/Minutes hold 1-2 min Comments also tried heel hang off the stairs Gait Training Gait Activity gait w/ SPC Device Used SPC Level of Assistance SBA Surface firm Distance/Duration 20 ft x4 laps in mirror Treatment Focus trunk alignment, 2 pt gait L knee extension stability Comments Ed with SPC discussed left foot pronation, and need for arch supports or better shoes, verbalized was supposed to do today. Improved trunk alignment and quad fac f/b gait decreased RUE pressure on SPC. Self-Care/Home Management Treatment Education Patient Education Home Exercise Program,Safety Other Education Initiated stand TKE, side hip abd, and seated LAQ to HEP with good feedback feels working weak muscles with ability to perform. Ed to pt may need to do HEP different times day to not over work leg , needs recovery time, verbalized understanding. Also reviewed need for more supportive shoes for now for arch support, verbalized will continue to wear at home and to PT. PT-OP-R Modalities Start: 09/26/21 11:42 Freq: Status: Active Protocol: Document 09/28/21 08:55 [facility] (Rec: 09/28/21 10:10 [facility] [id number]) Electric Stimulation Electric Stimulation Bahamian stim Body Location L vastus medialis, rectus femoris Duration (Minutes) 8 Intensity 56 Patient Position Hooklying Comments /12 cycle During SAQ PT-OP-T Assessment and Plan Start: 09/19/21 09:43 Freq: Status: Active Protocol: Document 09/28/21 08:55 [facility] (Rec: 09/28/21 10:10 [facility] [id number]) Physical Therapy Assessment Goals 4 Impairment Antalgic gait pattern, pt using SPC with decreased stride length Joist Setter Goal (LTG) Zak is able to return to walking without a AD and is able to work towards 1 mile distance or greater LTG Duration 8 weeks 3 Impairment Swelling of the left knee, ankle, and foot as compared to the right joint line is 16.5 left and 16 right around ankle at the level of the malleolus is 10.5 L and 10 R Joist Setter Goal (LTG) Zak has equal circumferential measurements B both at the joint line and ankle 2 Impairment Decreased strength of the left knee s/p partial knee replacement Short Term Goal (STG) Zak is able to perform 10 SLR without quad lag STG Duration 4 weeks Joist Setter Goal (LTG) Zak is able to perform 10 sit -stands without use of his hands LTG Duration x 10 reps 1 Impairment Decreased L knee ROM s/p partial (medial) knee replacement on 08/21/21 AROM knee flexion 100, extension 15 Short Term Goal (STG) Zak is able to perform full knee flexion to 120 or greater and has 0 degrees knee extension STG Duration 4 weeks Assessment Summary Assessment Tx focused on quad and hip abd facilitation today with improvement in firing post gait in mirror and kazakh stim able to perform TKE, LAQ and hip abd with good feedback response muscle tiring but no pain. Good form and able to self correct alignment. Physical Therapy Plan Frequency and Duration Frequency of Treatment 2x/Week Duration of Treatment 8 Plan of Care Start Date 09/19/21 Plan of Care End Date 11/14/21 Therapeutic Interventions Therapeutic Interventions Balance Training,Home Exercise Program,Manual Therapy, Patient/Caregiver Education, Self-Care/Home Management,Soft Tissue Mobilization, Therapeutic Activities, Therapeutic Exercises Modalities Cold Pack/Ice Massage,Electric Stimulation Next Visit Focus/Plan Next Note Type Treatment Note Next Visit Plan Next tx: stair training as this was not done at today's visit. POC: continue bike for warm up , knee ROM exercises focusing on full knee extension, strengthing ex for the L knee.
--- NOTE | 2021-10-02 17:51 | PT.OTN ---
Current Diagnoses Unilateral primary osteoarthritis, left knee (10/02/21) Physical Therapy Treatment Note PT-OP-A Visit Information Start: 09/19/21 09:43 Freq: Status: Active Protocol: Document 10/02/21 10:40 [facility] (Rec: 10/02/21 10:48 [facility] [id number]) Out-Patient Physical Therapy Visit Information Visit Information Visit Type Treatment Note Visit Start Time 10:30 Visit Stop Time 11:30 Total Visit Minutes 55 Visit Number 5 PT-OP-B Current Condition Start: 09/19/21 09:43 Freq: Status: Active Protocol: Document 09/19/21 09:44 [facility] (Rec: 09/19/21 09:58 [facility] [id number]) Current Condition History of Current Condition Onset Date 08/21/21 left partial knee replacement Current Complaints chief complaints of decreased knee ROM, decreased strength, and swelling. History of Current Condition pt took his last oxycodone for pain and took the last one today, taking codene as well. Pt ambulated into PT with a SPC. He has been using a cane x 3 weeks. He was experiencing swelling but feels this has gotten better. Pain is 6/10 now. Pain is localized to his knee now. He is feeling that his back is starting to go out now. He lives in a single level house. 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 He is also planning on having the right knee replaced as well. He wants to be able to walk pain free at least a mile a day. 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 He did spend more time standing the last couple of days PT-OP-F Manual Assessment Start: 09/19/21 09:43 Freq: Status: Active Protocol: Document 09/19/21 09:45 [facility] (Rec: 09/20/21 09:34 [facility] [id number]) Manual Assessments Soft Tissue Assessment Soft Tissue Mobility Assessment swelling noted in the left foot, ankle, and at the knee joint PT-OP-J Posture/Palpation/Skin Start: 09/19/21 09:43 Freq: Status: Active Protocol: Document 09/19/21 09:45 [facility] (Rec: 09/20/21 09:34 [facility] [id number]) Palpation Assessment Location left knee Palpation Location left knee Palpation Findings Edema Palpation Details well healed incision for medial knee partial knee replacement PT-OP-K Range of Motion Start: 09/19/21 09:43 Freq: Status: Active Protocol: Document 09/28/21 08:55 [facility] (Rec: 09/28/21 10:10 [facility] [id number]) Knee Goniometric Range of Motion Knee left knee Knee ROM WFL No Patient Position Supine Flexion Active (degrees) 120 Extension Passive (degrees) 5 Comments 5-120 deg AAROM w/ strap 126 deg PT-OP-M Strength Start: 09/19/21 09:43 Freq: Status: Active Protocol: Document 09/19/21 09:45 [facility] (Rec: 09/20/21 09:34 [facility] [id number]) Knee Strength Knee Manual Muscle Testing Left Flexion (S2) 3 Fair Extension (L3) 2+ Poor+ Comments pt is able to perform a quad set with towel under the knee, 15 degree quad lag with attempt to perform a SLR PT-OP-N Lymphedema Start: 09/20/21 09:34 Freq: Status: Active Protocol: Document 09/19/21 09:45 [facility] (Rec: 09/20/21 09:36 [facility] [id number]) Lymphedema Measurements Lower Extremity Circumference Measurements right Medial Malleolus 25.4 cm Knee Joint 40.64 cm left Medial Malleolus 26.67 cm Knee Joint 41.91 cm PT-OP-Q Treatments Start: 09/19/21 09:43 Freq: Status: Active Protocol: Document 10/02/21 10:30 [facility] (Rec: 10/02/21 17:50 [facility] [id number]) Cardio Equipment Bicycle (Upright) Duration (Minutes) 10 Resistance 0 Seat Position 4 Other full revolution Gym Equipment Shuttle Recovery Bilateral Squats Details bilateral squats Resistance 50# Reps/Time emphasis on full knee extension Therapeutic Exercises Supine Exercises prone hang Supine Exercise Name added to HEP, knee flexion range can between support if needed. Side left Reps/Minutes 4 min Comments pt tolerated well, gentle calf massage performed during stretch Left knee extension stretch Supine Exercise Name discussed is doing at home Side left Equipment Used towel roll under the ankle Reps/Minutes hold 1-2 min Comments pt tolerated this well quad sets Supine Exercise Name quad sets- discussed is doing at home Equipment Used towel roll under the left knee Reps/Minutes x 10 reps hold x 5 seconds Comments pt still shakey with quad sets , needs cues to hold x 5 seconds Sidelying Exercises hip abd Sidelying Exercise Name added to HEP Side left Resistance AROM Reps/Minutes 2 sec hold x10 Comments no pain just weak Sitting Exercises seated knee extension stretch Reps/Minutes holding x 1 min with left foot resting on a chair to stretch into extension Manual Therapy Treatment Soft Tissue Mobilization Left ITB release Body Location left ITB release Mobilization Type Myofascial Release Body Position Supine Comments pt had complained about left sided ITB tightness, he tolerated MFR well today scar mob Body Location L knee Comments multidirectional, manual and ed self application- good resposne, little tender but less tight Manual Techniques manual passive knee extension Type manual passive knee extension Comments worked for 4 min on manual knee extension followed up by quad sets and burkinan stimulation PT-OP-R Modalities Start: 09/26/21 11:42 Freq: Status: Active Protocol: Document 10/02/21 10:30 [facility] (Rec: 10/02/21 17:50 [facility] [id number]) Electric Stimulation Electric Stimulation American stim Body Location L vastus medialis, rectus femoris Duration (Minutes) 10 Intensity 56 Patient Position Hooklying PT-OP-T Assessment and Plan Start: 09/19/21 09:43 Freq: Status: Active Protocol: Document 10/02/21 10:40 [facility] (Rec: 10/02/21 10:48 [facility] [id number]) Physical Therapy Assessment Assessment Summary Assessment Continued to focus on quad and hip abduction facilitation. Used burkinan stimulation to help fire the quads. I also started him on the shuttle leg press which he tolerated well . Pt is walking without his cane today with improved gait pattern. Physical Therapy Plan Frequency and Duration Frequency of Treatment 2x/Week Duration of Treatment 8 Plan of Care Start Date 09/19/21 Plan of Care End Date 11/14/21 Therapeutic Interventions Therapeutic Interventions Balance Training,Home Exercise Program,Manual Therapy, Patient/Caregiver Education, Self-Care/Home Management,Soft Tissue Mobilization, Therapeutic Activities, Therapeutic Exercises Modalities Cold Pack/Ice Massage,Electric Stimulation
--- NOTE | 2021-10-05 09:48 | PT.OTN ---
Current Diagnoses Unilateral primary osteoarthritis, left knee (10/05/21) Physical Therapy Treatment Note PT-OP-A Visit Information Start: 09/19/21 09:43 Freq: Status: Active Protocol: Document 10/05/21 09:04 SP (Rec: 10/05/21 10:16 SP [id number]) Out-Patient Physical Therapy Visit Information Visit Information Visit Type Treatment Note Visit Start Time 09:04 Visit Stop Time 09:48 Total Visit Minutes 44 Visit Number 6 Evaluation Information Evaluation Date 09/19/21 PT-OP-B Current Condition Start: 09/19/21 09:43 Freq: Status: Active Protocol: Document 09/19/21 09:44 [facility] (Rec: 09/19/21 09:58 [facility] [id number]) Current Condition History of Current Condition Onset Date 08/21/21 left partial knee replacement Current Complaints chief complaints of decreased knee ROM, decreased strength, and swelling. History of Current Condition pt took his last oxycodone for pain and took the last one today, taking codene as well. Pt ambulated into PT with a SPC. He has been using a cane x 3 weeks. He was experiencing swelling but feels this has gotten better. Pain is 6/10 now. Pain is localized to his knee now. He is feeling that his back is starting to go out now. He lives in a single level house. 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 He is also planning on having the right knee replaced as well. He wants to be able to walk pain free at least a mile a day. 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 Having hard time sleeping. Pt states wants to walk to [employer], do at least one lap and back to [address] PT-OP-F Manual Assessment Start: 09/19/21 09:43 Freq: Status: Active Protocol: Document 09/19/21 09:45 [facility] (Rec: 09/20/21 09:34 [facility] [id number]) Manual Assessments Soft Tissue Assessment Soft Tissue Mobility Assessment swelling noted in the left foot, ankle, and at the knee joint PT-OP-J Posture/Palpation/Skin Start: 09/19/21 09:43 Freq: Status: Active Protocol: Document 09/19/21 09:45 [facility] (Rec: 09/20/21 09:34 [facility] [id number]) Palpation Assessment Location left knee Palpation Location left knee Palpation Findings Edema Palpation Details well healed incision for medial knee partial knee replacement PT-OP-K Range of Motion Start: 09/19/21 09:43 Freq: Status: Active Protocol: Document 10/05/21 09:04 SP (Rec: 10/05/21 10:16 SP [id number]) Knee Goniometric Range of Motion Knee left knee Knee ROM WFL No Patient Position Supine Flexion Active (degrees) 130 Flexion Passive (degrees) 133 Extension Active (degrees) 2 Extension Passive (degrees) 3 Comments 2-130 deg AROM, AAROM w/ strap 133 deg PT-OP-M Strength Start: 09/19/21 09:43 Freq: Status: Active Protocol: Document 09/19/21 09:45 [facility] (Rec: 09/20/21 09:34 [facility] [id number]) Knee Strength Knee Manual Muscle Testing Left Flexion (S2) 3 Fair Extension (L3) 2+ Poor+ Comments pt is able to perform a quad set with towel under the knee, 15 degree quad lag with attempt to perform a SLR PT-OP-N Lymphedema Start: 09/20/21 09:34 Freq: Status: Active Protocol: Document 09/19/21 09:45 [facility] (Rec: 09/20/21 09:36 [facility] [id number]) Lymphedema Measurements Lower Extremity Circumference Measurements right Medial Malleolus 25.4 cm Knee Joint 40.64 cm left Medial Malleolus 26.67 cm Knee Joint 41.91 cm PT-OP-Q Treatments Start: 09/19/21 09:43 Freq: Status: Active Protocol: Document 10/05/21 09:04 SP (Rec: 10/05/21 10:16 SP [id number]) Cardio Equipment Bicycle (Upright) Duration (Minutes) 10 Resistance 4 Seat Position 5> 4 Other full revolution Therapeutic Exercises Supine Exercises TA SLR Supine Exercise Name added to HEP Side left Resistance AROM Reps/Minutes x10 Comments cued TA, knee locked straight, DF and lift reps w/ maintain ext only Sidelying Exercises open book Sidelying Exercise Name added to HEP Side bilateral Resistance AROM Reps/Minutes x5 Comments good feedback, decreased LB and hip tightness hip abd Sidelying Exercise Name reviewed HEP Side left Resistance AROM Equipment Used 1 pillow between BLE Reps/Minutes 2 sec hold x10 Comments no pain just weak Sitting Exercises self STMs Sitting Exercise Name ITB Side left Equipment Used roll and see saw rocking. Reps/Minutes 1 min Comments good feedback response- decrease ITB tightness Gait Training Gait Activity 6MWT Device Used SPC Level of Assistance S Surface firm Distance/Duration 789.5 ft (baseline assessment) Treatment Focus normalize gait, increase hip abd fac during stance phase. Comments cued hip abd fac, trunk aligment with awareness of knee alignment for normalizing gait and decrease lateral L knee tightness during turns. Self-Care/Home Management Treatment Education Patient Education Body Mechanics,Home Exercise Program,Joint Protection, Posture Other Education Time spent sleep positioning with pillows for propping supine, side for back and hip alignment comfort. Initiated open book for decrease LB and hip discomfort . Awareness keeping LLE propped straight. Education on importance of quality gait w/ use of cane at this time. Self STMs w/ rolling stick if needed for ITB. Initiated seated resisted hip abd, side open book, TA SLR. PT-OP-R Modalities Start: 09/26/21 11:42 Freq: Status: Active Protocol: Document 10/02/21 10:30 [facility] (Rec: 10/02/21 17:50 [facility] [id number]) Electric Stimulation Electric Stimulation Bur[place] stim Body Location L vastus medialis, rectus femoris Duration (Minutes) 10 Intensity 56 Patient Position Hooklying PT-OP-T Assessment and Plan Start: 09/19/21 09:43 Freq: Status: Active Protocol: Document 10/05/21 09:04 SP (Rec: 10/05/21 10:16 SP [id number]) Physical Therapy Assessment Goals 4 Impairment Antalgic gait pattern, pt using SPC with decreased stride length Jail Goal (LTG) Zak is able to return to walking without a AD and is able to work towards 1 mile distance or greater LTG Duration 8 weeks 3 Impairment Swelling of the left knee, ankle, and foot as compared to the right joint line is 16.5 left and 16 right around ankle at the level of the malleolus is 10.5 L and 10 R Jail Goal (LTG) Zak has equal circumferential measurements B both at the joint line and ankle 2 Impairment Decreased strength of the left knee s/p partial knee replacement Short Term Goal (STG) Zak is able to perform 10 SLR without quad lag 10/05/21: progressing: SLR x10 reps with 2 deg lag. STG Duration 4 weeks (Progressing 10/05/21) Jail Goal (LTG) Zak is able to perform 10 sit -stands without use of his hands LTG Duration x 10 reps 1 Impairment Decreased L knee ROM s/p partial (medial) knee replacement on 08/21/21 AROM knee flexion 100, extension 15 10/05/21: progressin-122 AROM, AAROM w/ strap 124 deg L knee flexion. Short Term Goal (STG) Zak is able to perform full knee flexion to 120 or greater and has 0 degrees knee extension STG Duration 4 weeks Progress Towards Goals Progress Towards Goals Progressing Toward Goals Progress Comments Pt gaining L knee AROM 3-130 deg, 10/05/21.Complete 6MWT 789. 5 ft using SPC in RUE. Assessment Summary Assessment Pt progressing in AROM L knee, continues to have 3 deg lag, is compliant with HEP at home. Pt progresses gait 6MWT w/ SPC, noted increased ITB tightness last 2 min, improved post self STMs in sitting using rolling pin. Pt stated back felt better when leaving. FOOT ROENTGENOLOGIST suggested outdoor gait drive to park then do laps with good quality gait w/ SPC needs and progress distance when gets stronger, verbalized understanding. Physical Therapy Plan Frequency and Duration Frequency of Treatment 2x/Week Duration of Treatment 8 Plan of Care Start Date 09/19/21 Plan of Care End Date 11/14/21 Therapeutic Interventions Therapeutic Interventions Balance Training,Home Exercise Program,Manual Therapy, Patient/Caregiver Education, Self-Care/Home Management,Soft Tissue Mobilization, Therapeutic Activities, Therapeutic Exercises Modalities Cold Pack/Ice Massage,Electric Stimulation Next Visit Focus/Plan Next Note Type Treatment Note Next Visit Plan Next tx: review HEP: initiated open book, seated clamshell, TA SLR (give pic nex tx). Continue gait LRAD/no AD. Assess stair training as this was not done at today's visit. POC: continue bike for warm up , knee ROM exercises focusing on full knee extension, strengthing ex for the L knee.
--- NOTE | 2021-10-09 15:26 | PT.OTN ---
Current Diagnoses Unilateral primary osteoarthritis, left knee (10/09/21) Physical Therapy Treatment Note PT-OP-A Visit Information Start: 09/19/21 09:43 Freq: Status: Active Protocol: Document 10/09/21 10:38 [facility] (Rec: 10/09/21 11:17 [facility] [id number]) Out-Patient Physical Therapy Visit Information Visit Information Visit Type Treatment Note Visit Start Time 10:35 Visit Stop Time 11:20 Total Visit Minutes 50 Visit Number 7 PT-OP-B Current Condition Start: 09/19/21 09:43 Freq: Status: Active Protocol: Document 09/19/21 09:44 [facility] (Rec: 09/19/21 09:58 [facility] [id number]) Current Condition History of Current Condition Onset Date 08/21/21 left partial knee replacement Current Complaints chief complaints of decreased knee ROM, decreased strength, and swelling. History of Current Condition pt took his last oxycodone for pain and took the last one today, taking codene as well. Pt ambulated into PT with a SPC. He has been using a cane x 3 weeks. He was experiencing swelling but feels this has gotten better. Pain is 6/10 now. Pain is localized to his knee now. He is feeling that his back is starting to go out now. He lives in a single level house. 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 He is also planning on having the right knee replaced as well. He wants to be able to walk pain free at least a mile a day. 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 PT reports the only place his knee really hurts is the lateral part of his leg (ITB). He has been working on his knee extension at home Patient Reported Progress Improving PT-OP-F Manual Assessment Start: 09/19/21 09:43 Freq: Status: Active Protocol: Document 09/19/21 09:45 [facility] (Rec: 09/20/21 09:34 [facility] [id number]) Manual Assessments Soft Tissue Assessment Soft Tissue Mobility Assessment swelling noted in the left foot, ankle, and at the knee joint PT-OP-J Posture/Palpation/Skin Start: 09/19/21 09:43 Freq: Status: Active Protocol: Document 09/19/21 09:45 [facility] (Rec: 09/20/21 09:34 [facility] [id number]) Palpation Assessment Location left knee Palpation Location left knee Palpation Findings Edema Palpation Details well healed incision for medial knee partial knee replacement PT-OP-K Range of Motion Start: 09/19/21 09:43 Freq: Status: Active Protocol: Document 10/05/21 09:04 SP (Rec: 10/05/21 10:16 SP [id number]) Knee Goniometric Range of Motion Knee left knee Knee ROM WFL No Patient Position Supine Flexion Active (degrees) 130 Flexion Passive (degrees) 133 Extension Active (degrees) 2 Extension Passive (degrees) 3 Comments 2-130 deg AROM, AAROM w/ strap 133 deg PT-OP-M Strength Start: 09/19/21 09:43 Freq: Status: Active Protocol: Document 09/19/21 09:45 [facility] (Rec: 09/20/21 09:34 [facility] [id number]) Knee Strength Knee Manual Muscle Testing Left Flexion (S2) 3 Fair Extension (L3) 2+ Poor+ Comments pt is able to perform a quad set with towel under the knee, 15 degree quad lag with attempt to perform a SLR PT-OP-N Lymphedema Start: 09/20/21 09:34 Freq: Status: Active Protocol: Document 09/19/21 09:45 [facility] (Rec: 09/20/21 09:36 [facility] [id number]) Lymphedema Measurements Lower Extremity Circumference Measurements right Medial Malleolus 25.4 cm Knee Joint 40.64 cm left Medial Malleolus 26.67 cm Knee Joint 41.91 cm PT-OP-Q Treatments Start: 09/19/21 09:43 Freq: Status: Active Protocol: Document 10/09/21 10:38 [facility] (Rec: 10/09/21 11:17 [facility] [id number]) Cardio Equipment Bicycle (Upright) Duration (Minutes) 10 Resistance 4 Seat Position 4 Gym Equipment Shuttle Recovery Unilateral Squats Resistance 25# Reps/Time 3 x 10 reps Bilateral Squats Details bilateral squats Resistance 50# Reps/Time emphasis on full knee extension Therapeutic Exercises Supine Exercises Left knee extension stretch Side left Equipment Used towel roll under the ankle Reps/Minutes 2 min Comments pt tolerated this well quad sets Supine Exercise Name quad sets Equipment Used towel roll under the left knee Reps/Minutes x 10 reps hold x 5 seconds Comments better, still needing a rolled towel under knee to activate the quad Standing Exercises standing side steps Reps/Minutes x 2 min standing mini squats Reps/Minutes 2 x 10 reps standing calf stretch on the jason Standing Exercise Name discussed, pt thinks was to much hold 1 more day Reps/Minutes hold 1-2 min Comments also tried heel hang off the stairs Manual Therapy Treatment Manual Techniques ITB release Type ITB release Body Location left ITB Body Position Supine Comments with gusha to help reduce tightness of the left ITB manual passive knee extension Type manual passive knee extension Comments worked for 4 min on manual knee extension followed up by quad sets and omani stimulation PT-OP-R Modalities Start: 09/26/21 11:42 Freq: Status: Active Protocol: Document 10/09/21 10:30 [facility] (Rec: 10/09/21 15:13 [facility] [id number]) Electric Stimulation Electric Stimulation Dutch stim Body Location L vastus medialis, rectus femoris Duration (Minutes) 10 Intensity 56 Patient Position Hooklying Comments 10 seconds on 10 seconds off PT-OP-T Assessment and Plan Start: 09/19/21 09:43 Freq: Status: Active Protocol: Document 10/09/21 10:30 [facility] (Rec: 10/09/21 15:26 [facility] [id number]) Physical Therapy Assessment Assessment Summary Assessment AROM into knee extension is improving approx 3 degrees today, it still difficult to activate the quad without a towel roll so I kept him with the Dutch stim for quad activation. I did work with Zak on the shuttle today and he was able to perform single leg squats at 25#. Worked on standing mini squats and side steps. He is working on knee extension for home and time was spent with manual therapy techniques for knee ext today Physical Therapy Plan Frequency and Duration Frequency of Treatment 2x/Week Duration of Treatment 8 Plan of Care Start Date 09/19/21 Plan of Care End Date 11/14/21 Therapeutic Interventions Therapeutic Interventions Balance Training,Home Exercise Program,Manual Therapy, Patient/Caregiver Education, Self-Care/Home Management,Soft Tissue Mobilization, Therapeutic Activities, Therapeutic Exercises Modalities Cold Pack/Ice Massage,Electric Stimulation Next Visit Focus/Plan Next Note Type Treatment Note Next Visit Plan work on sidelying clam shells, side steps and mini squats, continue to emphasize full knee extension and quad control.
--- NOTE | 2021-10-12 09:56 | PT.OTN ---
Current Diagnoses Unilateral primary osteoarthritis, left knee (10/12/21) Physical Therapy Treatment Note PT-OP-A Visit Information Start: 09/19/21 09:43 Freq: Status: Active Protocol: Document 10/12/21 09:03 SP (Rec: 10/12/21 09:53 SP [id number]) Out-Patient Physical Therapy Visit Information Visit Information Visit Type Treatment Note Visit Start Time 09:03 Visit Stop Time 09:56 Total Visit Minutes 53 Visit Number 8 Number of ADMISSIONS RECRUITER Visits 1 Evaluation Information Evaluation Date 09/19/21 PT-OP-B Current Condition Start: 09/19/21 09:43 Freq: Status: Active Protocol: Document 09/19/21 09:44 AMH (Rec: 09/19/21 09:58 AMH [id number]) Current Condition History of Current Condition Onset Date 08/21/21 left partial knee replacement Current Complaints chief complaints of decreased knee ROM, decreased strength, and swelling. History of Current Condition pt took his last oxycodone for pain and took the last one today, taking codene as well. Pt ambulated into PT with a SPC. He has been using a cane x 3 weeks. He was experiencing swelling but feels this has gotten better. Pain is 6/10 now. Pain is localized to his knee now. He is feeling that his back is starting to go out now. He lives in a single level house. 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 He is also planning on having the right knee replaced as well. He wants to be able to walk pain free at least a mile a day. 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 PT-OP-F Manual Assessment Start: 09/19/21 09:43 Freq: Status: Active Protocol: Document 09/19/21 09:45 AMH (Rec: 09/20/21 09:34 AMH [id number]) Manual Assessments Soft Tissue Assessment Soft Tissue Mobility Assessment swelling noted in the left foot, ankle, and at the knee joint PT-OP-J Posture/Palpation/Skin Start: 09/19/21 09:43 Freq: Status: Active Protocol: Document 09/19/21 09:45 AMH (Rec: 09/20/21 09:34 AMH [id number]) Palpation Assessment Location left knee Palpation Location left knee Palpation Findings Edema Palpation Details well healed incision for medial knee partial knee replacement PT-OP-K Range of Motion Start: 09/19/21 09:43 Freq: Status: Active Protocol: Document 10/12/21 09:03 SP (Rec: 10/12/21 09:53 SP [id number]) Knee Goniometric Range of Motion Knee left knee Knee ROM WFL No Patient Position Supine Flexion Active (degrees) 124 Extension Active (degrees) 4 Comments AROM L knee supine: pre manual PT-OP-M Strength Start: 09/19/21 09:43 Freq: Status: Active Protocol: Document 09/19/21 09:45 AMH (Rec: 09/20/21 09:34 AMH [id number]) Knee Strength Knee Manual Muscle Testing Left Flexion (S2) 3 Fair Extension (L3) 2+ Poor+ Comments pt is able to perform a quad set with towel under the knee, 15 degree quad lag with attempt to perform a SLR PT-OP-N Lymphedema Start: 09/20/21 09:34 Freq: Status: Active Protocol: Document 09/19/21 09:45 AMH (Rec: 09/20/21 09:36 AMH [id number]) Lymphedema Measurements Lower Extremity Circumference Measurements right Medial Malleolus 25.4 cm Knee Joint 40.64 cm left Medial Malleolus 26.67 cm Knee Joint 41.91 cm PT-OP-Q Treatments Start: 09/19/21 09:43 Freq: Status: Active Protocol: Document 10/12/21 09:03 SP (Rec: 10/12/21 09:53 SP [id number]) Cardio Equipment Bicycle (Upright) Duration (Minutes) 10 Resistance 4 Seat Position 4 Other miles Therapeutic Exercises Supine Exercises Left knee extension stretch Side left Equipment Used towel roll under the ankle Reps/Minutes 2 min Comments pt tolerated this well quad sets Supine Exercise Name quad sets Equipment Used towel roll under the left knee Reps/Minutes x 10 reps hold x 5 seconds Comments better, still needing a rolled towel under knee to activate the quad Sidelying Exercises clamshell Sidelying Exercise Name added to HEP Side left Resistance AROM Reps/Minutes x10 Comments cued stack hip/ trunk alignment Sitting Exercises long sitting in floor self STMs Sitting Exercise Name calf, HS Side left Equipment Used foam roller used on floor Reps/Minutes 30 sec Comments good response, helps tight calf/ HS Standing Exercises band walk Standing Exercise Name at ankles- added to HEP Resistance TB #1 loop Equipment Used contact table as needed Reps/Minutes 10 ft x4 laps Comments cued tall posture, L quad fac- good response standing side steps Reps/Minutes x 2 min Manual Therapy Treatment Soft Tissue Mobilization L calf, HS Body Location Proximal gastroc, soleus, distal HS med/ lat Mobilization Type Cross-Friction,Myofascial Release,Strumming,Sustained Pressure Intensity/Depth Moderate Body Position Prone Comments manual, reviewed self rolling pin does at home. Left ITB release Body Location left ITB release Mobilization Type Myofascial Release Body Position Supine Comments pt had complained about left sided ITB tightness, he tolerated MFR well today scar mob Body Location L knee Comments multidirectional, manual and ed self application- good resposne, little tender but less tight Joint Mobilizations patella mob Joint L sup/ inf/ med/ lat Comments increase mobililty post manual , ed self application Self-Care/Home Management Treatment Education Patient Education Home Exercise Program Other Education Initiated side clamshell, band walks side stepping. PT-OP-R Modalities Start: 09/26/21 11:42 Freq: Status: Active Protocol: Document 10/12/21 09:03 SP (Rec: 10/12/21 09:53 SP [id number]) Electric Stimulation Electric Stimulation Dominican stim Body Location L vastus medialis, rectus femoris Duration (Minutes) 10 Intensity 91 Patient Position Supine Comments 10 seconds on 10 seconds off, towel roll under L knee PT-OP-T Assessment and Plan Start: 09/19/21 09:43 Freq: Status: Active Protocol: Document 10/12/21 09:03 SP (Rec: 10/12/21 09:53 SP [id number]) Physical Therapy Assessment Goals 4 Impairment Antalgic gait pattern, pt using SPC with decreased stride length Penitentiary Goal (LTG) Zak is able to return to walking without a AD and is able to work towards 1 mile distance or greater LTG Duration 8 weeks 3 Impairment Swelling of the left knee, ankle, and foot as compared to the right joint line is 16.5 left and 16 right around ankle at the level of the malleolus is 10.5 L and 10 R Penitentiary Goal (LTG) Zak has equal circumferential measurements B both at the joint line and ankle 2 Impairment Decreased strength of the left knee s/p partial knee replacement Short Term Goal (STG) Zak is able to perform 10 SLR without quad lag 10/05/21: progressing: SLR x10 reps with 2 deg lag. STG Duration 4 weeks (Progressing 10/05/21) Loader Operator/Ground Leader Goal (LTG) Zak is able to perform 10 sit -stands without use of his hands LTG Duration x 10 reps 1 Impairment Decreased L knee ROM s/p partial (medial) knee replacement on 08/21/21 AROM knee flexion 100, extension 15 10/05/21: progressin-122 AROM, AAROM w/ strap 124 deg L knee flexion. Short Term Goal (STG) Zak is able to perform full knee flexion to 120 or greater and has 0 degrees knee extension STG Duration 4 weeks Assessment Summary Assessment Pt decreased calf and HS tightness post manual and instruction self STMs rolling pin/ foam roller/ tennis ball. Noted recruitment of HS/ calf during quad set, continued Dominican stim reeducation VMO, post improved contraction post stim w/ towel roll under knee . Forgot to recheck AROM end tx. Improved quad facilitation during gait leaving, cued only UE A on SPC needed, decrease habit. Physical Therapy Plan Frequency and Duration Frequency of Treatment 2x/Week Duration of Treatment 8 Plan of Care Start Date 09/19/21 Plan of Care End Date 11/14/21 Therapeutic Interventions Therapeutic Interventions Balance Training,Home Exercise Program,Manual Therapy, Patient/Caregiver Education, Self-Care/Home Management,Soft Tissue Mobilization, Therapeutic Activities, Therapeutic Exercises Modalities Cold Pack/Ice Massage,Electric Stimulation Next Visit Focus/Plan Next Note Type Treatment Note Next Visit Plan Recheck initiated side AROM clamshell and band side stepping added last tx. POC: Add mini squats, continue to emphasize full knee extension and quad control.
--- NOTE | 2021-10-15 09:21 | PT.OTN ---
Current Diagnoses Unilateral primary osteoarthritis, left knee (10/15/21) Physical Therapy Treatment Note PT-OP-A Visit Information Start: 09/19/21 09:43 Freq: Status: Active Protocol: Document 10/15/21 08:20 SP (Rec: 10/15/21 09:46 SP [id number]) Out-Patient Physical Therapy Visit Information Visit Information Visit Type Treatment Note Visit Note PN 10/16/21, 10th visit Visit Start Time 08:20 Visit Stop Time 09:21 Total Visit Minutes 61 Visit Number 9 Number of DOMAIN ARCHITECT Visits 2 Evaluation Information Evaluation Date 09/19/21 PT-OP-B Current Condition Start: 09/19/21 09:43 Freq: Status: Active Protocol: Document 09/19/21 09:44 AMH (Rec: 09/19/21 09:58 AMH [id number]) Current Condition History of Current Condition Onset Date 08/21/21 left partial knee replacement Current Complaints chief complaints of decreased knee ROM, decreased strength, and swelling. History of Current Condition pt took his last oxycodone for pain and took the last one today, taking codene as well. Pt ambulated into PT with a SPC. He has been using a cane x 3 weeks. He was experiencing swelling but feels this has gotten better. Pain is 6/10 now. Pain is localized to his knee now. He is feeling that his back is starting to go out now. He lives in a single level house. 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 He is also planning on having the right knee replaced as well. He wants to be able to walk pain free at least a mile a day. 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 He stated his back has been hurting alot lately. Tries to walk downtown [place] but needs use SPC for support about 1 hr . PT-OP-F Manual Assessment Start: 09/19/21 09:43 Freq: Status: Active Protocol: Document 09/19/21 09:45 AMH (Rec: 09/20/21 09:34 AMH [id number]) Manual Assessments Soft Tissue Assessment Soft Tissue Mobility Assessment swelling noted in the left foot, ankle, and at the knee joint PT-OP-J Posture/Palpation/Skin Start: 09/19/21 09:43 Freq: Status: Active Protocol: Document 09/19/21 09:45 AMH (Rec: 09/20/21 09:34 AMH [id number]) Palpation Assessment Location left knee Palpation Location left knee Palpation Findings Edema Palpation Details well healed incision for medial knee partial knee replacement PT-OP-K Range of Motion Start: 09/19/21 09:43 Freq: Status: Active Protocol: Document 10/15/21 08:20 SP (Rec: 10/15/21 09:46 SP [id number]) Knee Goniometric Range of Motion Knee left knee Knee ROM WFL No Patient Position Supine Flexion Active (degrees) 124 Extension Active (degrees) 4 Comments foot over towel for ext. PT-OP-M Strength Start: 09/19/21 09:43 Freq: Status: Active Protocol: Document 09/19/21 09:45 AMH (Rec: 09/20/21 09:34 AMH [id number]) Knee Strength Knee Manual Muscle Testing Left Flexion (S2) 3 Fair Extension (L3) 2+ Poor+ Comments pt is able to perform a quad set with towel under the knee, 15 degree quad lag with attempt to perform a SLR PT-OP-N Lymphedema Start: 09/20/21 09:34 Freq: Status: Active Protocol: Document 09/19/21 09:45 AMH (Rec: 09/20/21 09:36 AMH [id number]) Lymphedema Measurements Lower Extremity Circumference Measurements right Medial Malleolus 25.4 cm Knee Joint 40.64 cm left Medial Malleolus 26.67 cm Knee Joint 41.91 cm PT-OP-Q Treatments Start: 09/19/21 09:43 Freq: Status: Active Protocol: Document 10/15/21 08:20 SP (Rec: 10/15/21 09:46 SP [id number]) Cardio Equipment Bicycle (Upright) Duration (Minutes) 10 Resistance 4 Seat Position 4 Therapeutic Exercises Supine Exercises quad sets Supine Exercise Name quad sets- during [place] Islander Stim Equipment Used towel roll under the left knee 6 min, took out last 2 min Reps/Minutes 5s holds Comments Improved quad activiation, removed towel roll last 2/8 min Sitting Exercises STS Sitting Exercise Name discussed doing at home with least UE support required and least pain Resistance (did not add to HEP but discussed can if wishes, try even BLE WB that can) Equipment Used 18mesh chair Reps/Minutes x10 w/ 2 brief stop stand rests Comments uses momentum, arms front vs across chest HS stretch Sitting Exercise Name reviewed HEP (knee extension) Side left Resistance performed B Equipment Used front chair hip hinge straight back Reps/Minutes 1 min Comments good feedback response- relax ankle piriformis stretch Sitting Exercise Name (hip IR/ ER) added to HEP Side bilateral Reps/Minutes 30-60s Comments good feedback response lumbar flexion stretch Sitting Exercise Name paraspinal and ql Side bilateral Reps/Minutes good feedback response- finds naturally been doing this Comments added to HEP forward and off to one side self STMs Sitting Exercise Name lumbar, hip/ glut musculature Side left Equipment Used ball on wall Reps/Minutes 3 Comments good feedback response- decrease back and hip tightness seated knee extension stretch Reps/Minutes holding x 1 min with left foot resting on a chair to stretch into extension Standing Exercises lumbar flexion stretch Standing Exercise Name reviewed self- forward/SB vs lateral tilt Side bilateral Equipment Used rail Reps/Minutes 30s x2 Comments good feedback and form band walk Standing Exercise Name at ankles- added to HEP Resistance TB #1 loop Equipment Used contact table 1 UE light/ min Reps/Minutes 10 ft x4 laps Comments cued tall posture, PPT TA fac- good response and L quad fac this tx standing calf stretch on the jason Standing Exercise Name HEP review Side left Equipment Used foot over rolled towel/yoga block/ drop heel off step Reps/Minutes hold 1-2 min Comments time spent find best stretch Self-Care/Home Management Treatment Education Patient Education Home Exercise Program Other Education Initiated hip/ LS/ review calf stretching and review self STM balance to strengthening HEP to decrease tightness LEs, hips, LB- good feedback movement alot better . Assessed STS without UE support, challenging and 5/10 L knee pain but states helpful and impressed can do. PT-OP-R Modalities Start: 09/26/21 11:42 Freq: Status: Active Protocol: Document 10/15/21 08:20 SP (Rec: 10/15/21 09:46 SP [id number]) Electric Stimulation Electric Stimulation [place] Islander stim Body Location L vastus medialis, rectus femoris Duration (Minutes) 8 Intensity 76 Patient Position Supine Comments 5s on/off, towel roll under L knee, removed last 2 min- cued not recruit calf/HS with good feedback and demonstration carryover. PT-OP-T Assessment and Plan Start: 09/19/21 09:43 Freq: Status: Active Protocol: Document 10/15/21 08:20 SP (Rec: 10/15/21 09:46 SP [id number]) Physical Therapy Assessment Goals 4 Impairment Antalgic gait pattern, pt using SPC with decreased stride length Tobacco Cutter Goal (LTG) Zak is able to return to walking without a AD and is able to work towards 1 mile distance or greater 10/15/21: Pt able to walk about 1 hr [place] need use SPC for support/ alignment . LTG Duration 8 weeks (Progressing) 3 Impairment Swelling of the left knee, ankle, and foot as compared to the right joint line is 16.5 left and 16 right around ankle at the level of the malleolus is 10.5 L and 10 R Tobacco Cutter Goal (LTG) Zak has equal circumferential measurements B both at the joint line and ankle 2 Impairment Decreased strength of the left knee s/p partial knee replacement Short Term Goal (STG) Zak is able to perform 10 SLR without quad lag 10/05/21: progressing: SLR x10 reps with 2 deg lag. STG Duration 4 weeks (Progressing 10/05/21) Tobacco Cutter Goal (LTG) Zak is able to perform 10 sit -stands without use of his hands 10/15/21: progressing: Pt able to perform 10 reps (not timed) with alot time, hip hinge forward and use momentum without UE, pain L knee /, states using RLE alot due to LLE weakness, 2 brief stop stand rests. LTG Duration x 10 reps (progressing) 1 Impairment Decreased L knee ROM s/p partial (medial) knee replacement on 08/21/21 AROM knee flexion 100, extension 15 10/05/21: progressin-122 AROM, AAROM w/ strap 124 deg L knee flexion. Short Term Goal (STG) Zak is able to perform full knee flexion to 120 or greater and has 0 degrees knee extension 10/15/21: progressin- 124 deg AROM. STG Duration 4 weeks (progressing) Assessment Summary Assessment Pt worked hard, provided assessment to goals, initiated stretching with good feedback decreased LB/LE tightness walking. Still needs to be conscious of quad facilitation during LLE WB to prevent buckling. Was able to perform STS without UE support but uses momentum and RLE more support and experiences L knee pain 5/10 with pressure inside jt but tolerable. Physical Therapy Plan Frequency and Duration Frequency of Treatment 2x/Week Duration of Treatment 8 Plan of Care Start Date 09/19/21 Plan of Care End Date 11/14/21 Therapeutic Interventions Therapeutic Interventions Balance Training,Home Exercise Program,Manual Therapy, Patient/Caregiver Education, Self-Care/Home Management,Soft Tissue Mobilization, Therapeutic Activities, Therapeutic Exercises Modalities Cold Pack/Ice Massage,Electric Stimulation Next Visit Focus/Plan Next Note Type Treatment Note Next Visit Plan PN 10/16/21. Next tx: Recheck HEP: side clamshell, band walk , stretching as needed, add STS to HEP if low to no pain, progress quality gait endurance. POC: Add mini squats if STS painful, continue to emphasize full knee extension and quad control.
--- NOTE | 2021-10-16 11:00 | PT.OTN ---
Current Diagnoses Unilateral primary osteoarthritis, left knee (10/16/21) Physical Therapy Treatment Note PT-OP-A Visit Information Start: 09/19/21 09:43 Freq: Status: Active Protocol: Document 10/16/21 09:50 [facility] (Rec: 10/16/21 10:05 [facility] [id number]) Out-Patient Physical Therapy Visit Information Visit Information Visit Type Progress Note Visit Start Time 09:50 Visit Stop Time 10:45 Total Visit Minutes 55 Visit Number 10 Number of [employer] [place] Visits 0 PT-OP-B Current Condition Start: 09/19/21 09:43 Freq: Status: Active Protocol: Document 09/19/21 09:44 [facility] (Rec: 09/19/21 09:58 [facility] [id number]) Current Condition History of Current Condition Onset Date 08/21/21 left partial knee replacement Current Complaints chief complaints of decreased knee ROM, decreased strength, and swelling. History of Current Condition pt took his last oxycodone for pain and took the last one today, taking codene as well. Pt ambulated into PT with a SPC. He has been using a cane x 3 weeks. He was experiencing swelling but feels this has gotten better. Pain is 6/10 now. Pain is localized to his knee now. He is feeling that his back is starting to go out now. He lives in a single level house. 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 He is also planning on having the right knee replaced as well. He wants to be able to walk pain free at least a mile a day. 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 Prior Functional Status Baseline Function- ADL's Independent Baseline Function- Mobility Independent Current Functional Impairments (Reported) Functional Limitations- Mobility/Gait ambulating with SPC and limited to walking 1 block PT-OP-C Subjective Start: 09/19/21 09:43 Freq: Status: Active Protocol: Document 10/16/21 09:50 [facility] (Rec: 10/16/21 10:05 [facility] [id number]) OP-PT Subjective Patient Comments Patient Comments Zak reports he continues to work on his knee extension at home, knee is the stiffest in the AM, he has been using his cane more when he is out and about walking as he still feels that he has the low back pain. Patient Reported Progress Improving PT-OP-F Manual Assessment Start: 09/19/21 09:43 Freq: Status: Active Protocol: Document 09/19/21 09:45 [facility] (Rec: 09/20/21 09:34 [facility] [id number]) Manual Assessments Soft Tissue Assessment Soft Tissue Mobility Assessment swelling noted in the left foot, ankle, and at the knee joint PT-OP-J Posture/Palpation/Skin Start: 09/19/21 09:43 Freq: Status: Active Protocol: Document 09/19/21 09:45 [facility] (Rec: 09/20/21 09:34 [facility] [id number]) Palpation Assessment Location left knee Palpation Location left knee Palpation Findings Edema Palpation Details well healed incision for medial knee partial knee replacement PT-OP-K Range of Motion Start: 09/19/21 09:43 Freq: Status: Active Protocol: Document 10/16/21 10:26 [facility] (Rec: 10/16/21 10:46 [facility] [id number]) Knee Goniometric Range of Motion Knee left knee Knee ROM WFL No Patient Position Supine Flexion Active (degrees) 125 Extension Active (degrees) 3 Comments manaul therapy techniques PT-OP-M Strength Start: 09/19/21 09:43 Freq: Status: Active Protocol: Document 09/19/21 09:45 [facility] (Rec: 09/20/21 09:34 [facility] [id number]) Knee Strength Knee Manual Muscle Testing Left Flexion (S2) 3 Fair Extension (L3) 2+ Poor+ Comments pt is able to perform a quad set with towel under the knee, 15 degree quad lag with attempt to perform a SLR PT-OP-N Lymphedema Start: 09/20/21 09:34 Freq: Status: Active Protocol: Document 09/19/21 09:45 [facility] (Rec: 09/20/21 09:36 [facility] [id number]) Lymphedema Measurements Lower Extremity Circumference Measurements right Medial Malleolus 25.4 cm Knee Joint 40.64 cm left Medial Malleolus 26.67 cm Knee Joint 41.91 cm PT-OP-Q Treatments Start: 09/19/21 09:43 Freq: Status: Active Protocol: Document 10/16/21 09:50 [facility] (Rec: 10/16/21 10:26 [facility] [id number]) Cardio Equipment Bicycle (Upright) Duration (Minutes) 8 Resistance 4 Seat Position 4 Gym Equipment Shuttle Recovery Unilateral Squats Resistance 25# Reps/Time 3 x 10 reps Bilateral Squats Details bilateral squats Resistance 50# Reps/Time emphasis on full knee extension Therapeutic Exercises Standing Exercises sit-stand Reps/Minutes 2 x 10 without hands band walk Standing Exercise Name at ankles- added to HEP Resistance TB #1 loop Equipment Used contact table 1 UE light/ min Reps/Minutes 10 ft x4 laps Comments cued tall posture, PPT TA fac- good response and L quad fac this tx standing mini squats Standing Exercise Name with yellow theraband around thighs Reps/Minutes 2 x 10 reps standing calf stretch on the jason Standing Exercise Name HEP review Side left Equipment Used foot over rolled towel/yoga block/ drop heel off step Reps/Minutes hold 1-2 min Comments time spent find best stretch PT-OP-R Modalities Start: 09/26/21 11:42 Freq: Status: Active Protocol: Document 10/16/21 09:50 [facility] (Rec: 10/16/21 10:59 [facility] [id number]) Electric Stimulation Electric Stimulation Togolese stim Body Location L vastus medialis, rectus femoris Duration (Minutes) 10 Intensity 40 Patient Position Supine Comments 10 seconds on/off, no towel under knee today as we had worked on knee extension prior and he was able to touch the table with the back of his knee PT-OP-T Assessment and Plan Start: 09/19/21 09:43 Freq: Status: Active Protocol: Document 10/16/21 09:50 [facility] (Rec: 10/16/21 10:05 [facility] [id number]) Physical Therapy Assessment Goals 4 Impairment Antalgic gait pattern, pt using SPC with decreased stride length Mechanical Striper Goal (LTG) Zak is able to return to walking without a AD and is able to work towards 1 mile distance or greater 10/15/21: Pt able to walk about 1 [place] need use SPC for support/ alignment . LTG Duration 8 weeks (Progressing) 3 Impairment Swelling of the left knee, ankle, and foot as compared to the right joint line is 16.5 left and 16 right around ankle at the level of the malleolus is 10.5 L and 10 R Retirement Goal (LTG) Zak has equal circumferential measurements B both at the joint line and ankle 2 Impairment Decreased strength of the left knee s/p partial knee replacement Short Term Goal (STG) Zak is able to perform 10 SLR without quad lag 10/05/21: progressing: SLR x10 reps with 2 deg lag. STG Duration 4 weeks (Progressing 10/05/21) Retirement Goal (LTG) Zak is able to perform 10 sit -stands without use of his hands 10/15/21: progressing: Pt able to perform 10 reps (not timed) with alot time, hip hinge forward and use momentum without UE, pain L knee 01/08, states using RLE alot due to LLE weakness, 2 brief stop stand rests. LTG Duration x 10 reps (progressing) 1 Impairment Decreased L knee ROM s/p partial (medial) knee replacement on 08/21/21 AROM knee flexion 100, extension 15 10/05/21: progressin-122 AROM, AAROM w/ strap 124 deg L knee flexion. Short Term Goal (STG) Zak is able to perform full knee flexion to 120 or greater and has 0 degrees knee extension 10/15/21: progressin- 124 deg AROM. STG Duration 4 weeks (progressing) Progress Towards Goals Progress Towards Goals Progressing Toward Goals Progress Comments Zak is progressing toward his goals, he still needs the last few degrees of knee extension for improved quad control to help him meet his goal of walking a mile Assessment Summary Assessment Pt was able to get to 3-125 today with left knee ROM, working on ITB release as the lateral aspect of his knee is where he feels the most tightness. He still needs to be conscious of quad facilitation during his gait and with sit-stand. Zak would benefit from continued PT Physical Therapy Plan Frequency and Duration Frequency of Treatment 2x/Week Duration of Treatment 8 Plan of Care Start Date 10/16/21 Plan of Care End Date 12/13/21 Therapeutic Interventions Therapeutic Interventions Balance Training,Home Exercise Program,Manual Therapy, Patient/Caregiver Education, Self-Care/Home Management,Soft Tissue Mobilization, Therapeutic Activities, Therapeutic Exercises Modalities Cold Pack/Ice Massage,Electric Stimulation Next Visit Focus/Plan Next Note Type Treatment Note Next Visit Plan continue progressing lateral stabilization, work on step ups, squats, and side steps with theraband. Work towards full knee extension and quad control with gait
--- NOTE | 2021-10-16 11:00 | PT.OPPOC ---
Physical, Occupational & Speech Therapy At [facility] Current Diagnoses Unilateral primary osteoarthritis, left knee (10/16/21) Visit Care Team Role Provider Type David Bateman MD Family Provider Physician Primary Care Provider Specialty: Family Practice Address: [address] [place] [address], [id number] Email: [email or web address] Eugene Menjivar MD Attending Provider Physician Referring Provider Specialty: Orthopedic Surgery Address: [address] [place] [address], [id number] Email: [email or web address] Plan Of Care PT-OP-T Assessment and Plan Start: 09/19/21 09:43 Freq: Status: Active Protocol: Document 10/16/21 09:50 [facility] (Rec: 10/16/21 10:05 [facility] [id number]) Physical Therapy Assessment Goals 4 Impairment Antalgic gait pattern, pt using SPC with decreased stride length Penitentiary Goal (LTG) Zak is able to return to walking without a AD and is able to work towards 1 mile distance or greater 10/15/21: Pt able to walk about 1 hr [place] need use SPC for support/ alignment . LTG Duration 8 weeks (Progressing) 3 Impairment Swelling of the left knee, ankle, and foot as compared to the right joint line is 16.5 left and 16 right around ankle at the level of the malleolus is 10.5 L and 10 R Supervisor [employer] Goal (LTG) Zak has equal circumferential measurements B both at the joint line and ankle 2 Impairment Decreased strength of the left knee s/p partial knee replacement Short Term Goal (STG) Zak is able to perform 10 SLR without quad lag 10/05/21: progressing: SLR x10 reps with 2 deg lag. STG Duration 4 weeks (Progressing 10/05/21) Penitentiary Goal (LTG) Zak is able to perform 10 sit -stands without use of his hands 10/15/21: progressing: Pt able to perform 10 reps (not timed) with alot time, hip hinge forward and use momentum without UE, pain L knee 01/08, states using RLE alot due to LLE weakness, 2 brief stop stand rests. LTG Duration x 10 reps (progressing) 1 Impairment Decreased L knee ROM s/p partial (medial) knee replacement on 08/21/21 AROM knee flexion 100, extension 15 10/05/21: progressin-122 AROM, AAROM w/ strap 124 deg L knee flexion. Short Term Goal (STG) Zak is able to perform full knee flexion to 120 or greater and has 0 degrees knee extension 10/15/21: progressin- 124 deg AROM. STG Duration 4 weeks (progressing) Progress Towards Goals Progress Towards Goals Progressing Toward Goals Progress Comments Zak is progressing toward his goals, he still needs the last few degrees of knee extension for improved quad control to help him meet his goal of walking a mile Assessment Summary Assessment Pt was able to get to 3-125 today with left knee ROM, working on ITB release as the lateral aspect of his knee is where he feels the most tightness. He still needs to be conscious of quad facilitation during his gait and with sit-stand. Zak would benefit from continued PT Physical Therapy Plan Frequency and Duration Frequency of Treatment 2x/Week Duration of Treatment 8 Plan of Care Start Date 10/16/21 Plan of Care End Date 12/13/21 Therapeutic Interventions Therapeutic Interventions Balance Training,Home Exercise Program,Manual Therapy, Patient/Caregiver Education, Self-Care/Home Management,Soft Tissue Mobilization, Therapeutic Activities, Therapeutic Exercises Modalities Cold Pack/Ice Massage,Electric Stimulation Next Visit Focus/Plan Next Note Type Treatment Note Next Visit Plan continue progressing lateral stabilization, work on step ups, squats, and side steps with theraband. Work towards full knee extension and quad control with gait Plan of Care Dates Plan of Care Start Date 10/16/21 Plan of Care End Date 12/13/21 Electronically Signed by: Winnie Jules, PT 10/16/21 1100 Please Sign and Return: I have reviewed this Plan of Care and certify that the skilled therapy services above are required to meet the patient?s needs. Physician Signature Date Printed Name and Credentials Clinical Instructor Signature Printed Name and Credentials
--- NOTE | 2021-10-22 08:30 | PT.OTN ---
Current Diagnoses Unilateral primary osteoarthritis, left knee (10/22/21) Physical Therapy Treatment Note PT-OP-A Visit Information Start: 09/19/21 09:43 Freq: Status: Active Protocol: Document 10/22/21 07:29 [facility] (Rec: 10/22/21 09:04 [facility] [id number]) Out-Patient Physical Therapy Visit Information Visit Information Visit Type Treatment Note Visit Note Updated HEP in a goal for what doing currently at home. 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 History of Current Condition pt took his last oxycodone for pain and took the last one today, taking codene as well. Pt ambulated into PT with a SPC. He has been using a cane x 3 weeks. He was experiencing swelling but feels this has gotten better. Pain is 6/10 now. Pain is localized to his knee now. He is feeling that his back is starting to go out now. He lives in a single level house. 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 He is also planning on having the right knee replaced as well. He wants to be able to walk pain free at least a mile a day. 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 He states doing ok, back was giving trouble over the weekend but doing exercises at home. HEP: quad set, heel slide, ITB stretch, sit: heel toe clamshell, side clamshell, side hip abd, stand TKE w/ TB, band walks, calf stretch, sit<> stands challenging and 4/10 L knee painful (sub patella and lateral distal ITB) naum post sit<>stands. PT-OP-F Manual Assessment Start: 09/19/21 09:43 Freq: Status: Active Protocol: Document 09/19/21 09:45 [facility] (Rec: 09/20/21 09:34 [facility] [id number]) Manual Assessments Soft Tissue Assessment Soft Tissue Mobility Assessment swelling noted in the left foot, ankle, and at the knee joint PT-OP-J Posture/Palpation/Skin Start: 09/19/21 09:43 Freq: Status: Active Protocol: Document 09/19/21 09:45 [facility] (Rec: 09/20/21 09:34 [facility] [id number]) Palpation Assessment Location left knee Palpation Location left knee Palpation Findings Edema Palpation Details well healed incision for medial knee partial knee replacement PT-OP-K Range of Motion Start: 09/19/21 09:43 Freq: Status: Active Protocol: Document 10/16/21 10:26 [facility] (Rec: 10/16/21 10:46 [facility] [id number]) Knee Goniometric Range of Motion Knee left knee Knee ROM WFL No Patient Position Supine Flexion Active (degrees) 125 Extension Active (degrees) 3 Comments manaul therapy techniques PT-OP-M Strength Start: 09/19/21 09:43 Freq: Status: Active Protocol: Document 09/19/21 09:45 [facility] (Rec: 09/20/21 09:34 [facility] [id number]) Knee Strength Knee Manual Muscle Testing Left Flexion (S2) 3 Fair Extension (L3) 2+ Poor+ Comments pt is able to perform a quad set with towel under the knee, 15 degree quad lag with attempt to perform a SLR PT-OP-N Lymphedema Start: 09/20/21 09:34 Freq: Status: Active Protocol: Document 09/19/21 09:45 [facility] (Rec: 09/20/21 09:36 [facility] [id number]) Lymphedema Measurements Lower Extremity Circumference Measurements right Medial Malleolus 25.4 cm Knee Joint 40.64 cm left Medial Malleolus 26.67 cm Knee Joint 41.91 cm PT-OP-Q Treatments Start: 09/19/21 09:43 Freq: Status: Active Protocol: Document 10/22/21 07:29 [facility] (Rec: 10/22/21 09:04 [facility] [id number]) Cardio Equipment Bicycle (Upright) Duration (Minutes) 12 Resistance 5 Seat Position 4 Other 3.42 miles Therapeutic Exercises Supine Exercises Left knee extension stretch Supine Exercise Name Discussed review, doing at home Side left Equipment Used towel roll under the ankle Reps/Minutes 2 min Comments pt tolerated this well quad sets Supine Exercise Name quad sets- during Eritrean Stim and cryocuff Equipment Used foot on table Reps/Minutes 5s holds Comments Improved quad activiation heel slides Supine Exercise Name Discussed review, doing at home Side left Resistance w/ strap Reps/Minutes 20 reps Comments 110> 115 post knee flexion over ball Sidelying Exercises clamshell Sidelying Exercise Name Discussed review, doing at home Side left Resistance AROM Reps/Minutes x10 Comments cued stack hip/ trunk alignment hip abd Sidelying Exercise Name Discussed review, doing at home Side left Resistance AROM Equipment Used 1 pillow between BLE Reps/Minutes 2 sec hold x10 Comments no pain just weak Sitting Exercises self STMs Sitting Exercise Name hs, calf, quad, ITB Side left Equipment Used rolling pin (roll/ rock) Reps/Minutes 3 min Comments good feedback response decrease tightness Standing Exercises SLS Standing Exercise Name assessed in PT Side left Equipment Used rail contact Reps/Minutes 10 sec Comments cued level pelvis, quad ext and knee alignment step up Standing Exercise Name PT only (assessment)- lateral, forward Side left Resistance AROM Equipment Used rail support, 2 hard bound book Reps/Minutes x5 Comments cued knee with/ behind toe sit-stand Standing Exercise Name reviewed HEP Resistance AROM, TB#2 around knees Equipment Used 18 mesh chair and blue foam ( 2height) Reps/Minutes 3 reps chair x8 w/ foam hands held front Comments cued heel press and glut squeeze ascend. band walk Standing Exercise Name Discussed review, doing at home Resistance TB #2 loop Equipment Used contact table 1 UE light/ min Reps/Minutes 10 ft x4 laps Comments cued tall posture, PPT TA fac- good response and L quad fac this tx TKE Standing Exercise Name (forward and L facing L/medial pull) Reviewed HEP Side left Resistance TB#3 Equipment Used contact chair Reps/Minutes hold 3 sec 3x10 fwd/ lateral x10 reps (HEP x10 f/l alternating x2 sets) Comments cued knee with and behind toes , cued eccentric heel stay down standing calf stretch on the jason Standing Exercise Name HEP review Side left Equipment Used home uses 1/2 roll and contact chair Reps/Minutes 3 x30 Comments good stretch straight gastroc/ bent soleus Manual Therapy Treatment Taping fat pad taping/sub patella Body Location L fat pad/patellar tendon Treatment Focus pain control anterior L knee, decompress Type of Tape Frances Skin Inspection intact, normal color, fully healed scar Comments cover roll basetape and Frances fat pad taping L sub patella PT-OP-R Modalities Start: 09/26/21 11:42 Freq: Status: Active Protocol: Document 10/22/21 07:29 [facility] (Rec: 10/22/21 09:04 [facility] [id number]) Electric Stimulation Electric Stimulation Eritrean stim Body Location L vastus medialis, rectus femoris Duration (Minutes) 8 Intensity 61 Patient Position Supine Combined With Heat/Cold Cold Pack Comments 5 seconds on/off, no towel under knee today as we had worked on knee extension prior and he was able to touch the table with the back of his knee (w/ cryocuff) PT-OP-T Assessment and Plan Start: 09/19/21 09:43 Freq: Status: Active Protocol: Document 10/22/21 07:29 [facility] (Rec: 10/22/21 09:04 [facility] [id number]) Physical Therapy Assessment Goals 4 Impairment Antalgic gait pattern, pt using SPC with decreased stride length Deputy Director Of Finance Goal (LTG) Zak is able to return to walking without a AD and is able to work towards 1 mile distance or greater 10/15/21: Pt able to walk about 1 hr [place] need use SPC for support/ alignment . LTG Duration 8 weeks (Progressing) 3 Impairment Swelling of the left knee, ankle, and foot as compared to the right joint line is 16.5 left and 16 right around ankle at the level of the malleolus is 10.5 L and 10 R Deputy Director Of Finance Goal (LTG) Zak has equal circumferential measurements B both at the joint line and ankle 2 Impairment Decreased strength of the left knee s/p partial knee replacement Short Term Goal (STG) Zak is able to perform 10 SLR without quad lag 10/05/21: progressing: SLR x10 reps with 2 deg lag. 10/22/21: HEP states doing at home: HEP: quad set, heel slide, ITB stretch, sit: heel toe clamshell, side clamshell, side hip abd, stand TKE w/ TB , band walks, calf stretch, sit<> stands challenging weakness and sub patella anterior 4/10 pain. STG Duration 4 weeks (Progressing 10/05/21) Shelter Goal (LTG) Zak is able to perform 10 sit -stands without use of his hands 10/15/21: progressing: Pt able to perform 10 reps (not timed) with alot time, hip hinge forward and use momentum without UE, pain L knee 5/10, states using RLE alot due to LLE weakness, 2 brief stop stand rests. LTG Duration x 10 reps (progressing) 1 Impairment Decreased L knee ROM s/p partial (medial) knee replacement on 08/21/21 AROM knee flexion 100, extension 15 10/05/21: progressin-122 AROM, AAROM w/ strap 124 deg L knee flexion. Short Term Goal (STG) Zak is able to perform full knee flexion to 120 or greater and has 0 degrees knee extension 10/15/21: progressin- 124 deg AROM. STG Duration 4 weeks (progressing) Assessment Summary Assessment Pt had lateral distal ITB and patellar tendon irritation during STS. It improved with cues L knee alignment corrections during TKE forward holds 3 sec w/ eccentric control, initiated medial pull for self lateral hip abd facilitation, little shaky but good effort tiring. STS cued glut/quad fac w/ knees apart w / toe and even BLE wt distribution, elevated surface 20 but no change in pain. Responded well to cryocuff and K taping fat pad for anterior knee pain with good response end tx. Good understanding skin check for adverse reactions and take off 24 hrs if not helping anymore slowly otherwise can keep on until Fri when sees PT. Physical Therapy Plan Frequency and Duration Frequency of Treatment 2x/Week Duration of Treatment 8 Plan of Care Start Date 10/16/21 Plan of Care End Date 12/13/21 Therapeutic Interventions Therapeutic Interventions Balance Training,Home Exercise Program,Manual Therapy, Patient/Caregiver Education, Self-Care/Home Management,Soft Tissue Mobilization, Therapeutic Activities, Therapeutic Exercises Modalities Cold Pack/Ice Massage,Electric Stimulation Next Visit Focus/Plan Next Note Type Treatment Note Next Visit Plan continue progressing lateral stabilization, work on step ups, squats, and side steps with theraband. Work towards full knee extension and quad control with gait
--- NOTE | 2021-10-24 17:34 | PT.OTN ---
Current Diagnoses Unilateral primary osteoarthritis, left knee (10/24/21) Physical Therapy Treatment Note PT-OP-A Visit Information Start: 09/19/21 09:43 Freq: Status: Active Protocol: Document 10/24/21 11:18 [facility] (Rec: 10/24/21 12:04 [facility] [id number]) Out-Patient Physical Therapy Visit Information Visit Information Visit Type Treatment Note Visit Start Time 11:15 Visit Stop Time 12:00 Total Visit Minutes 45 Visit Number 12 PT-OP-B Current Condition Start: 09/19/21 09:43 Freq: Status: Active Protocol: Document 09/19/21 09:44 [facility] (Rec: 09/19/21 09:58 [facility] [id number]) Current Condition History of Current Condition Onset Date 08/21/21 left partial knee replacement Current Complaints chief complaints of decreased knee ROM, decreased strength, and swelling. History of Current Condition pt took his last oxycodone for pain and took the last one today, taking codene as well. Pt ambulated into PT with a SPC. He has been using a cane x 3 weeks. He was experiencing swelling but feels this has gotten better. Pain is 6/10 now. Pain is localized to his knee now. He is feeling that his back is starting to go out now. He lives in a single level house. 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 He is also planning on having the right knee replaced as well. He wants to be able to walk pain free at least a mile a day. 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 He notes he feels that his knee extension is improving and he has been working on this at home Patient Reported Progress Improving PT-OP-F Manual Assessment Start: 09/19/21 09:43 Freq: Status: Active Protocol: Document 09/19/21 09:45 [facility] (Rec: 09/20/21 09:34 [facility] [id number]) Manual Assessments Soft Tissue Assessment Soft Tissue Mobility Assessment swelling noted in the left foot, ankle, and at the knee joint PT-OP-J Posture/Palpation/Skin Start: 09/19/21 09:43 Freq: Status: Active Protocol: Document 09/19/21 09:45 [facility] (Rec: 09/20/21 09:34 [facility] [id number]) Palpation Assessment Location left knee Palpation Location left knee Palpation Findings Edema Palpation Details well healed incision for medial knee partial knee replacement PT-OP-K Range of Motion Start: 09/19/21 09:43 Freq: Status: Active Protocol: Document 10/16/21 10:26 [facility] (Rec: 10/16/21 10:46 [facility] [id number]) Knee Goniometric Range of Motion Knee left knee Knee ROM WFL No Patient Position Supine Flexion Active (degrees) 125 Extension Active (degrees) 3 Comments manaul therapy techniques PT-OP-M Strength Start: 09/19/21 09:43 Freq: Status: Active Protocol: Document 09/19/21 09:45 [facility] (Rec: 09/20/21 09:34 [facility] [id number]) Knee Strength Knee Manual Muscle Testing Left Flexion (S2) 3 Fair Extension (L3) 2+ Poor+ Comments pt is able to perform a quad set with towel under the knee, 15 degree quad lag with attempt to perform a SLR PT-OP-N Lymphedema Start: 09/20/21 09:34 Freq: Status: Active Protocol: Document 09/19/21 09:45 [facility] (Rec: 09/20/21 09:36 [facility] [id number]) Lymphedema Measurements Lower Extremity Circumference Measurements right Medial Malleolus 25.4 cm Knee Joint 40.64 cm left Medial Malleolus 26.67 cm Knee Joint 41.91 cm PT-OP-Q Treatments Start: 09/19/21 09:43 Freq: Status: Active Protocol: Document 10/24/21 11:18 [facility] (Rec: 10/24/21 12:04 [facility] [id number]) Cardio Equipment Bicycle (Upright) Duration (Minutes) 5 Resistance 5 Seat Position 4 Other pt had already rode his bike at home prior to PT Gym Equipment Shuttle Recovery Unilateral Squats Resistance 25# Reps/Time 3 x 10 reps Bilateral Squats Details bilateral squats Resistance 50# Reps/Time emphasis on full knee extension Therapeutic Exercises Supine Exercises supine bridges Reps/Minutes x 20 reps figure 4 stretch Reps/Minutes hold 30 seco to 1 min Comments did this on the shuttle ball rolls into knee flexion Supine Exercise Name with hamstring activation Reps/Minutes x 20 reps Comments cues to dig in with heels PT-OP-R Modalities Start: 09/26/21 11:42 Freq: Status: Active Protocol: Document 10/22/21 07:29 [facility] (Rec: 10/22/21 09:04 [facility] [id number]) Electric Stimulation Electric Stimulation Lao stim Body Location L vastus medialis, rectus femoris Duration (Minutes) 8 Intensity 61 Patient Position Supine Combined With Heat/Cold Cold Pack Comments 5 seconds on/off, no towel under knee today as we had worked on knee extension prior and he was able to touch the table with the back of his knee (w/ cryocuff) PT-OP-T Assessment and Plan Start: 09/19/21 09:43 Freq: Status: Active Protocol: Document 10/24/21 11:15 [facility] (Rec: 10/25/21 17:33 [facility] [id number]) Physical Therapy Assessment Assessment Summary Assessment Pt still has some lateral ITB tightness, all stretches reviewed for the ITB, he showed improve knee extension to full today with improved quad set in full extension. Pt has 2 visits left in PT prior to DC. Physical Therapy Plan Frequency and Duration Frequency of Treatment 2x/Week Duration of Treatment 8 Plan of Care Start Date 10/16/21 Plan of Care End Date 12/13/21 Therapeutic Interventions Therapeutic Interventions Balance Training,Home Exercise Program,Manual Therapy, Patient/Caregiver Education, Self-Care/Home Management,Soft Tissue Mobilization, Therapeutic Activities, Therapeutic Exercises Modalities Cold Pack/Ice Massage,Electric Stimulation Next Visit Focus/Plan Next Note Type Treatment Note Next Visit Plan continue progressing lateral stabilization, work on step ups, squats, and side steps with theraband. Work towards full knee extension and quad control with gait
--- NOTE | 2021-10-29 09:05 | PT.OTN ---
Addendum entered and electronically signed by Katherine Govea, CHIEF ACCOUNTING OFFICER 10/29/21 09:46: Provided G light very light wt almost no compression stocking sleeve over B ankle, educated not to wear ankle socks, verbalized usually wears compression socks but with swelling couldn't get on and wanted us to see what ankle looked like. Original Note: Current Diagnoses Unilateral primary osteoarthritis, left knee (10/29/21) Physical Therapy Treatment Note PT-OP-A Visit Information Start: 09/19/21 09:43 Freq: Status: Active Protocol: Document 10/29/21 08:15 [facility] (Rec: 10/29/21 09:37 [facility] [id number]) Out-Patient Physical Therapy Visit Information Visit Information Visit Type Treatment Note Visit Start Time 08:15 Visit Stop Time 09:05 Total Visit Minutes 50 Visit Number 13 Number of CHIEF ACCOUNTING OFFICER Visits 1 Evaluation Information Evaluation Date 09/19/21 PT-OP-B Current Condition Start: 09/19/21 09:43 Freq: Status: Active Protocol: Document 09/19/21 09:44 [facility] (Rec: 09/19/21 09:58 [facility] [id number]) Current Condition History of Current Condition Onset Date 08/21/21 left partial knee replacement Current Complaints chief complaints of decreased knee ROM, decreased strength, and swelling. History of Current Condition pt took his last oxycodone for pain and took the last one today, taking codene as well. Pt ambulated into PT with a SPC. He has been using a cane x 3 weeks. He was experiencing swelling but feels this has gotten better. Pain is 6/10 now. Pain is localized to his knee now. He is feeling that his back is starting to go out now. He lives in a single level house. 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 He is also planning on having the right knee replaced as well. He wants to be able to walk pain free at least a mile a day. 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 Pt stated after last tx hasn't been able to walk on LLE. He has a call into Dr Bateman to be seen but told he isn't in so hoping that can get into see another physician at the office and possible to get an xray today. Pt states does have poor circulation problems before but unsure why started hurting since last tx. Didn't do any exercises since then. Has been icing ankle every 2 hrs and elevating LLE alot and not making significant improvement but thought coming to PT to see what can do/help . Patient Reported Progress Worse PT-OP-F Manual Assessment Start: 09/19/21 09:43 Freq: Status: Active Protocol: Document 09/19/21 09:45 [facility] (Rec: 09/20/21 09:34 [facility] [id number]) Manual Assessments Soft Tissue Assessment Soft Tissue Mobility Assessment swelling noted in the left foot, ankle, and at the knee joint PT-OP-J Posture/Palpation/Skin Start: 09/19/21 09:43 Freq: Status: Active Protocol: Document 09/19/21 09:45 [facility] (Rec: 09/20/21 09:34 [facility] [id number]) Palpation Assessment Location left knee Palpation Location left knee Palpation Findings Edema Palpation Details well healed incision for medial knee partial knee replacement PT-OP-K Range of Motion Start: 09/19/21 09:43 Freq: Status: Active Protocol: Document 10/16/21 10:26 [facility] (Rec: 10/16/21 10:46 [facility] [id number]) Knee Goniometric Range of Motion Knee left knee Knee ROM WFL No Patient Position Supine Flexion Active (degrees) 125 Extension Active (degrees) 3 Comments manaul therapy techniques PT-OP-M Strength Start: 09/19/21 09:43 Freq: Status: Active Protocol: Document 09/19/21 09:45 [facility] (Rec: 09/20/21 09:34 [facility] [id number]) Knee Strength Knee Manual Muscle Testing Left Flexion (S2) 3 Fair Extension (L3) 2+ Poor+ Comments pt is able to perform a quad set with towel under the knee, 15 degree quad lag with attempt to perform a SLR PT-OP-N Lymphedema Start: 09/20/21 09:34 Freq: Status: Active Protocol: Document 09/19/21 09:45 [facility] (Rec: 09/20/21 09:36 [facility] [id number]) Lymphedema Measurements Lower Extremity Circumference Measurements right Medial Malleolus 25.4 cm Knee Joint 40.64 cm left Medial Malleolus 26.67 cm Knee Joint 41.91 cm PT-OP-Q Treatments Start: 09/19/21 09:43 Freq: Status: Active Protocol: Document 10/29/21 08:15 [facility] (Rec: 10/29/21 09:37 [facility] [id number]) Gait Training Gait Activity gait w/ SPC Description 2 pt gait Device Used SPC RUE, crutch LUE Level of Assistance SBA Surface firm Distance/Duration 100 ft waiting room to PT black table Comments Demonstrates almost 25% WB on LLE Manual Therapy Treatment Soft Tissue Mobilization L calf, HS Body Location Mid distal achilles, lateral ankle, Dorsal/plantar foot, gentle medial ankl Mobilization Type Manual Lymphatic Drainage Intensity/Depth Superficial Body Position Hooklying Comments gently retro grade started proximal toward distal then distal>proximal. Manual Techniques L foot/ ankle swelling measurements Type L foot/ankle circumference Comments Pre manual: IPs: 10 1/4 Base MTPs: 11 1/2 Distal tib/fib: 11 1/4 Post Manual: IPs: 10 1/8 Base MTPs: 11 6/16 Distal tib, fib: 11 3/4 Post Cryocuff: IPs: Base MTPs: Distal tib/fib: PT-OP-R Modalities Start: 09/26/21 11:42 Freq: Status: Active Protocol: Document 10/29/21 08:15 SP (Rec: 10/29/21 09:37 [facility] [id number]) Hot Pack/Cold Pack Treatment cryocuff Location L ankle Patient Position Hooklying Patient Tolerance Good Comments noted decrease in swelling over all and good response to cold. Reduction in redness medial ankle, swelling, and warmth. PT-OP-T Assessment and Plan Start: 09/19/21 09:43 Freq: Status: Active Protocol: Document 10/29/21 08:15 [facility] (Rec: 10/29/21 09:37 [facility] [id number]) Physical Therapy Assessment Goals 4 Impairment Antalgic gait pattern, pt using SPC with decreased stride length Usp Goal (LTG) Zak is able to return to walking without a AD and is able to work towards 1 mile distance or greater 10/15/21: Pt able to walk about [address] [place] need use SPC for support/ alignment . LTG Duration 8 weeks (Progressing) 3 Impairment Swelling of the left knee, ankle, and foot as compared to the right joint line is 16.5 left and 16 right around ankle at the level of the malleolus is 10.5 L and 10 R Usp Goal (LTG) Zak has equal circumferential measurements B both at the joint line and ankle 2 Impairment Decreased strength of the left knee s/p partial knee replacement Short Term Goal (STG) Zak is able to perform 10 SLR without quad lag 10/05/21: progressing: SLR x10 reps with 2 deg lag. 10/22/21: HEP states doing at home: HEP: quad set, heel slide, ITB stretch, sit: heel toe clamshell, side clamshell, side hip abd, stand TKE w/ TB , band walks, calf stretch, sit<> stands challenging weakness and sub patella anterior 4/10 pain. STG Duration 4 weeks (Progressing 10/05/21) Usp Goal (LTG) Zak is able to perform 10 sit -stands without use of his hands 10/15/21: progressing: Pt able to perform 10 reps (not timed) with alot time, hip hinge forward and use momentum without UE, pain L knee 5/10, states using RLE alot due to LLE weakness, 2 brief stop stand rests. LTG Duration x 10 reps (progressing) 1 Impairment Decreased L knee ROM s/p partial (medial) knee replacement on 08/21/21 AROM knee flexion 100, extension 15 10/05/21: progressin-122 AROM, AAROM w/ strap 124 deg L knee flexion. Short Term Goal (STG) Zak is able to perform full knee flexion to 120 or greater and has 0 degrees knee extension 10/15/21: progressin- 124 deg AROM. STG Duration 4 weeks (progressing) Assessment Summary Assessment Pt significant decrease WB through L ankle/foot upon arrival, swollen/ warm to touch medial L ankle. He had reduction in pain and swelling of L foot/ ankle by 1/4 to 1 /2 circumference measurement taken, decrease in redness and decrease in warmth to touch post manual and cryocuff . Continues to not be able to WB through L foot. CHIEF ACCOUNTING OFFICER concerned of medial L ankle recommended going to urgent/ ER for further assessment for safety and calling to come assist him if needed, not to wait to hear back from Dr office. Pt drove here. Pt states L ankle feels better post manual and cryocuff, agreed to not wait for call back from physican's office for appt and welcomed to assist with transportation up to ER via w/c. Physical Therapy Plan Frequency and Duration Frequency of Treatment 2x/Week Duration of Treatment 8 Plan of Care Start Date 10/16/21 Plan of Care End Date 12/13/21 Therapeutic Interventions Therapeutic Interventions Balance Training,Home Exercise Program,Manual Therapy, Patient/Caregiver Education, Self-Care/Home Management,Soft Tissue Mobilization, Therapeutic Activities, Therapeutic Exercises Modalities Cold Pack/Ice Massage,Electric Stimulation Next Visit Focus/Plan Next Note Type Treatment Note Next Visit Plan Recheck ER visit after last appt. If able, POC: continue progressing lateral stabilization, work on step ups, squats, and side steps with theraband. Work towards full knee extension and quad control with gait
--- NOTE | 2021-11-06 17:37 | PT.OTN ---
Current Diagnoses Unilateral primary osteoarthritis, left knee (11/06/21) Physical Therapy Treatment Note PT-OP-A Visit Information Start: 09/19/21 09:43 Freq: Status: Active Protocol: Document 11/06/21 13:45 [facility] (Rec: 11/06/21 14:31 [facility] [id number]) Out-Patient Physical Therapy Visit Information Visit Information Visit Type Treatment Note Visit Start Time 13:45 Visit Stop Time 14:30 Total Visit Minutes 45 Visit Number 14 Number of SUB ARC OPERATOR Visits 0 PT-OP-B Current Condition Start: 09/19/21 09:43 Freq: Status: Active Protocol: Document 09/19/21 09:44 [facility] (Rec: 09/19/21 09:58 [facility] [id number]) Current Condition History of Current Condition Onset Date 08/21/21 left partial knee replacement Current Complaints chief complaints of decreased knee ROM, decreased strength, and swelling. History of Current Condition pt took his last oxycodone for pain and took the last one today, taking codene as well. Pt ambulated into PT with a SPC. He has been using a cane x 3 weeks. He was experiencing swelling but feels this has gotten better. Pain is 6/10 now. Pain is localized to his knee now. He is feeling that his back is starting to go out now. He lives in a single level house. 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 He is also planning on having the right knee replaced as well. He wants to be able to walk pain free at least a mile a day. 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 He was given a antibiotic to help with the infection. He is on day 7 now of the antibiotic. He has his MD appt with his ortho doc this week. He is concerned about the infection spreading to his knee but he does feel the infection is decreasing and today is the first day he doesn't have as much ankle pain. He hasn't done any of his knee exercises due to pain since he was here last PT-OP-F Manual Assessment Start: 09/19/21 09:43 Freq: Status: Active Protocol: Document 09/19/21 09:45 [facility] (Rec: 09/20/21 09:34 [facility] [id number]) Manual Assessments Soft Tissue Assessment Soft Tissue Mobility Assessment swelling noted in the left foot, ankle, and at the knee joint PT-OP-J Posture/Palpation/Skin Start: 09/19/21 09:43 Freq: Status: Active Protocol: Document 09/19/21 09:45 [facility] (Rec: 09/20/21 09:34 [facility] [id number]) Palpation Assessment Location left knee Palpation Location left knee Palpation Findings Edema Palpation Details well healed incision for medial knee partial knee replacement PT-OP-K Range of Motion Start: 09/19/21 09:43 Freq: Status: Active Protocol: Document 10/16/21 10:26 [facility] (Rec: 10/16/21 10:46 [facility] [id number]) Knee Goniometric Range of Motion Knee left knee Knee ROM WFL No Patient Position Supine Flexion Active (degrees) 125 Extension Active (degrees) 3 Comments manaul therapy techniques PT-OP-M Strength Start: 09/19/21 09:43 Freq: Status: Active Protocol: Document 09/19/21 09:45 [facility] (Rec: 09/20/21 09:34 [facility] [id number]) Knee Strength Knee Manual Muscle Testing Left Flexion (S2) 3 Fair Extension (L3) 2+ Poor+ Comments pt is able to perform a quad set with towel under the knee, 15 degree quad lag with attempt to perform a SLR PT-OP-N Lymphedema Start: 09/20/21 09:34 Freq: Status: Active Protocol: Document 09/19/21 09:45 [facility] (Rec: 09/20/21 09:36 [facility] [id number]) Lymphedema Measurements Lower Extremity Circumference Measurements right Medial Malleolus 25.4 cm Knee Joint 40.64 cm left Medial Malleolus 26.67 cm Knee Joint 41.91 cm PT-OP-Q Treatments Start: 09/19/21 09:43 Freq: Status: Active Protocol: Document 11/06/21 13:45 [facility] (Rec: 11/06/21 14:31 [facility] [id number]) Cardio Equipment Bicycle (Upright) Duration (Minutes) 8 Resistance 4 Seat Position 4 Gym Equipment Shuttle Recovery Unilateral Squats Resistance 25# Reps/Time 3 x 10 reps Bilateral Squats Details bilateral squats Resistance 50# Reps/Time emphasis on full knee extension Therapeutic Exercises Supine Exercises supine bridges Reps/Minutes x 20 reps figure 4 stretch Reps/Minutes hold 30 seco to 1 min Comments did this on the shuttle ball rolls into knee flexion Supine Exercise Name with hamstring activation Reps/Minutes x 20 reps Comments cues to dig in with heels quad sets Supine Exercise Name quad sets- during [place] Stim and cryocuff Equipment Used foot on table Reps/Minutes 5s holds Comments Improved quad activiation Sitting Exercises HS stretch Sitting Exercise Name reviewed HEP (knee extension) Side left Resistance performed B Equipment Used front chair hip hinge straight back Reps/Minutes 1 min Comments good feedback response- relax ankle piriformis stretch Sitting Exercise Name (hip IR/ ER) added to HEP Side bilateral Reps/Minutes 30-60s Comments good feedback response PT-OP-R Modalities Start: 09/26/21 11:42 Freq: Status: Active Protocol: Document 10/29/21 08:15 [facility] (Rec: 10/29/21 09:37 [facility] [id number]) Hot Pack/Cold Pack Treatment cryocuff Location L ankle Patient Position Hooklying Patient Tolerance Good Comments noted decrease in swelling over all and good response to cold. Reduction in redness medial ankle, swelling, and warmth. PT-OP-T Assessment and Plan Start: 09/19/21 09:43 Freq: Status: Active Protocol: Document 11/06/21 13:45 [facility] (Rec: 11/06/21 14:31 [facility] [id number]) Physical Therapy Assessment Assessment Summary Assessment pt presenting with cellulitus and is on antiobiotics now. He has a visit with his MD on . He would benefit from continued PT as his knee became pretty stiff while dealing with this infection so I have asked for continued visits to be sheduled. His knee extension today is still good and he could perform a quad set with his knee fully extended. Physical Therapy Plan Frequency and Duration Frequency of Treatment 2x/Week Duration of Treatment 8 Plan of Care Start Date 10/16/21 Plan of Care End Date 12/13/21 Therapeutic Interventions Therapeutic Interventions Balance Training,Home Exercise Program,Manual Therapy, Patient/Caregiver Education, Self-Care/Home Management,Soft Tissue Mobilization, Therapeutic Activities, Therapeutic Exercises Modalities Cold Pack/Ice Massage,Electric Stimulation Next Visit Focus/Plan Next Note Type Treatment Note Next Visit Plan If Zak can tolerate next visit return to standing ther ex and stabilization for the lateral hips and knee. Step ups and squats. Continue to work on normalizing gait.
--- NOTE | 2021-11-12 13:07 | PT.OTN ---
Current Diagnoses Unilateral primary osteoarthritis, left knee (11/12/21) Physical Therapy Treatment Note PT-OP-A Visit Information Start: 09/19/21 09:43 Freq: Status: Active Protocol: Document 11/12/21 12:14 SP (Rec: 11/12/21 13:06 SP [id number]) Out-Patient Physical Therapy Visit Information Visit Information Visit Type Treatment Note Visit Start Time 12:14 Visit Stop Time 13:07 Total Visit Minutes 53 Visit Number 15 Number of ESTHETICS INSTRUCTOR Visits 1 Evaluation Information Evaluation Date 09/19/21 PT-OP-B Current Condition Start: 09/19/21 09:43 Freq: Status: Active Protocol: Document 09/19/21 09:44 [facility] (Rec: 09/19/21 09:58 [facility] [id number]) Current Condition History of Current Condition Onset Date 08/21/21 left partial knee replacement Current Complaints chief complaints of decreased knee ROM, decreased strength, and swelling. History of Current Condition pt took his last oxycodone for pain and took the last one today, taking codene as well. Pt ambulated into PT with a SPC. He has been using a cane x 3 weeks. He was experiencing swelling but feels this has gotten better. Pain is 6/10 now. Pain is localized to his knee now. He is feeling that his back is starting to go out now. He lives in a single level house. 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 He is also planning on having the right knee replaced as well. He wants to be able to walk pain free at least a mile a day. 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 Arrives without SPC, antalgic gait but ableto WB throught LLE. PT-OP-F Manual Assessment Start: 09/19/21 09:43 Freq: Status: Active Protocol: Document 09/19/21 09:45 [facility] (Rec: 09/20/21 09:34 [facility] [id number]) Manual Assessments Soft Tissue Assessment Soft Tissue Mobility Assessment swelling noted in the left foot, ankle, and at the knee joint PT-OP-J Posture/Palpation/Skin Start: 09/19/21 09:43 Freq: Status: Active Protocol: Document 09/19/21 09:45 [facility] (Rec: 09/20/21 09:34 [facility] [id number]) Palpation Assessment Location left knee Palpation Location left knee Palpation Findings Edema Palpation Details well healed incision for medial knee partial knee replacement PT-OP-K Range of Motion Start: 09/19/21 09:43 Freq: Status: Active Protocol: Document 11/12/21 12:14 SP (Rec: 11/12/21 13:06 SP [id number]) Knee Goniometric Range of Motion Knee Right Knee ROM WFL Yes left knee Knee ROM WFL No Patient Position Supine Flexion Active (degrees) 126 Extension Active (degrees) 3 Comments foot over bolster measurement- weak quad fac, shaky. PT-OP-M Strength Start: 09/19/21 09:43 Freq: Status: Active Protocol: Document 09/19/21 09:45 [facility] (Rec: 09/20/21 09:34 [facility] [id number]) Knee Strength Knee Manual Muscle Testing Left Flexion (S2) 3 Fair Extension (L3) 2+ Poor+ Comments pt is able to perform a quad set with towel under the knee, 15 degree quad lag with attempt to perform a SLR PT-OP-N Lymphedema Start: 09/20/21 09:34 Freq: Status: Active Protocol: Document 09/19/21 09:45 [facility] (Rec: 09/20/21 09:36 [facility] [id number]) Lymphedema Measurements Lower Extremity Circumference Measurements right Medial Malleolus 25.4 cm Knee Joint 40.64 cm left Medial Malleolus 26.67 cm Knee Joint 41.91 cm PT-OP-Q Treatments Start: 09/19/21 09:43 Freq: Status: Active Protocol: Document 11/12/21 12:14 SP (Rec: 11/12/21 13:06 SP [id number]) Cardio Equipment Bicycle (Upright) Duration (Minutes) 6 Resistance 4 Seat Position 6 Other 1.47miles Gym Equipment Shuttle Recovery Unilateral Squats Resistance 25# LLE, 37# RLE Reps/Time 3x15 RLE; 10, 18, 10 reps LLE Bilateral Squats Details bilateral squats Resistance 50# x3 reps easy> 62# x10 Shuttle Recovery Platform Stable Reps/Time emphasis on full knee extension Therapeutic Exercises Standing Exercises step up Standing Exercise Name PT only (assessment)- lateral, forward Side left Resistance AROM (therapist knee front pt knee prevent buckling Equipment Used rail support, 2 hard bound book under LLE Reps/Minutes x3 Comments cued knee with/ behind toe- very wobbly so stopped sit-stand Standing Exercise Name reviewed HEP Resistance AROM, TB#2 around knees Equipment Used 18 mesh chair Reps/Minutes x3 reps chair hands held front Comments cued heel press and glut squeeze ascend.- pain so stopped inside side L kne band walk Standing Exercise Name Discussed review, doing at home Resistance TB #1 loop (reduced for for) Equipment Used contact table 1 UE light/ min Reps/Minutes 20 ft x2 laps Comments cued level pelvis, tall posture- good muscle soreness, not pain standing mini squats Equipment Used rail eccentric Reps/Minutes x3 reps Comments pain, no change with cues knees/behind and with toes, so stopped TKE Standing Exercise Name forward 2x12, lateral x10 w/ 3 sec hold- Reviewed HEP Side left Resistance TB#1 Equipment Used contact chair Comments cued knee with toes, eccentric control PT-OP-R Modalities Start: 09/26/21 11:42 Freq: Status: Active Protocol: Document 11/12/21 12:14 SP (Rec: 11/12/21 13:06 SP [id number]) Electric Stimulation Electric Stimulation [place] stim Body Location L vastus medialis, rectus femoris Duration (Minutes) 8 Intensity 98 Patient Position Supine Combined With Heat/Cold Cold Pack Comments 10 seconds on/off, no towel under knee today as we had worked on knee extension prior and he was able to touch the table with the back of his knee (w/ cryocuff) PT-OP-T Assessment and Plan Start: 09/19/21 09:43 Freq: Status: Active Protocol: Document 11/12/21 12:14 SP (Rec: 11/12/21 13:06 SP [id number]) Physical Therapy Assessment Goals 4 Impairment Antalgic gait pattern, pt using SPC with decreased stride length Assisted Goal (LTG) Zak is able to return to walking without a AD and is able to work towards 1 mile distance or greater 10/15/21: Pt able to walk about 1 [place] need use SPC for support/ alignment . LTG Duration 8 weeks (Progressing) 3 Impairment Swelling of the left knee, ankle, and foot as compared to the right joint line is 16.5 left and 16 right around ankle at the level of the malleolus is 10.5 L and 10 R Assisted Goal (LTG) Zak has equal circumferential measurements B both at the joint line and ankle 2 Impairment Decreased strength of the left knee s/p partial knee replacement Short Term Goal (STG) Zak is able to perform 10 SLR without quad lag 10/05/21: progressing: SLR x10 reps with 2 deg lag. 10/22/21: HEP states doing at home: HEP: quad set, heel slide, ITB stretch, sit: heel toe clamshell, side clamshell, side hip abd, stand TKE w/ TB , band walks, calf stretch, sit<> stands challenging weakness and sub patella anterior 4/10 pain. STG Duration 4 weeks (Progressing 10/05/21) It Administrative Assistant Goal (LTG) Zak is able to perform 10 sit -stands without use of his hands 10/15/21: progressing: Pt able to perform 10 reps (not timed) with alot time, hip hinge forward and use momentum without UE, pain L knee 5/10, states using RLE alot due to LLE weakness, 2 brief stop stand rests. LTG Duration x 10 reps (progressing) 1 Impairment Decreased L knee ROM s/p partial (medial) knee replacement on 08/21/21 AROM knee flexion 100, extension 15 10/05/21: progressin-122 AROM, AAROM w/ strap 124 deg L knee flexion. Short Term Goal (STG) Zak is able to perform full knee flexion to 120 or greater and has 0 degrees knee extension 10/15/21: progressin- 124 deg AROM. STG Duration 4 weeks (progressing) Assessment Summary Assessment Cued heel press and quad/ glut / HS facilitation during shuttle press, and awareness of quad engagement into extension but not hyperextension. Instructed to do HEP bilaterally due to LLE pain as well more lately. Weakness in L quad noted throughout ex, improved with cues alignment and con/ eccentric control. Weakness during quad sets, provided [place] stim for re- ed assist , fair contraction noted, good response. Educated continue use of SPC for lateral stability at this time quality gait, verbalized understanding. Very little discomfort in knees leaving but still noted antalgic gait due to not bringing SPC. Physical Therapy Plan Frequency and Duration Frequency of Treatment 2x/Week Duration of Treatment 8 Plan of Care Start Date 10/16/21 Plan of Care End Date 12/13/21 Therapeutic Interventions Therapeutic Interventions Balance Training,Home Exercise Program,Manual Therapy, Patient/Caregiver Education, Self-Care/Home Management,Soft Tissue Mobilization, Therapeutic Activities, Therapeutic Exercises Modalities Cold Pack/Ice Massage,Electric Stimulation Next Visit Focus/Plan Next Note Type Treatment Note Next Visit Plan If Zak can tolerate last tx: return to standing ther ex and stabilization for the lateral hips and knee. Step ups and squats. Continue to work on normalizing gait.
--- NOTE | 2021-11-15 13:19 | PT.OTN ---
Current Diagnoses Unilateral primary osteoarthritis, left knee (11/15/21) Physical Therapy Treatment Note PT-OP-A Visit Information Start: 09/19/21 09:43 Freq: Status: Active Protocol: Document 11/15/21 09:09 [facility] (Rec: 11/15/21 09:48 [facility] [id number]) Out-Patient Physical Therapy Visit Information Visit Information Visit Type Treatment Note Visit Start Time 09:00 Visit Stop Time 09:45 Total Visit Minutes 45 Visit Number 16 Number of SPECIAL EDUCATION CLASSROOM AIDE Visits 0 PT-OP-B Current Condition Start: 09/19/21 09:43 Freq: Status: Active Protocol: Document 09/19/21 09:44 [facility] (Rec: 09/19/21 09:58 [facility] [id number]) Current Condition History of Current Condition Onset Date 08/21/21 left partial knee replacement Current Complaints chief complaints of decreased knee ROM, decreased strength, and swelling. History of Current Condition pt took his last oxycodone for pain and took the last one today, taking codene as well. Pt ambulated into PT with a SPC. He has been using a cane x 3 weeks. He was experiencing swelling but feels this has gotten better. Pain is 6/10 now. Pain is localized to his knee now. He is feeling that his back is starting to go out now. He lives in a single level house. 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 He is also planning on having the right knee replaced as well. He wants to be able to walk pain free at least a mile a day. 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 He feels like he still cant walk around too much as his knee still stiff, he is using his cane Patient Reported Progress Improving PT-OP-F Manual Assessment Start: 09/19/21 09:43 Freq: Status: Active Protocol: Document 09/19/21 09:45 [facility] (Rec: 09/20/21 09:34 [facility] [id number]) Manual Assessments Soft Tissue Assessment Soft Tissue Mobility Assessment swelling noted in the left foot, ankle, and at the knee joint PT-OP-J Posture/Palpation/Skin Start: 09/19/21 09:43 Freq: Status: Active Protocol: Document 09/19/21 09:45 [facility] (Rec: 09/20/21 09:34 [facility] [id number]) Palpation Assessment Location left knee Palpation Location left knee Palpation Findings Edema Palpation Details well healed incision for medial knee partial knee replacement PT-OP-K Range of Motion Start: 09/19/21 09:43 Freq: Status: Active Protocol: Document 11/12/21 12:14 SP (Rec: 11/12/21 13:06 SP [id number]) Knee Goniometric Range of Motion Knee Right Knee ROM WFL Yes left knee Knee ROM WFL No Patient Position Supine Flexion Active (degrees) 126 Extension Active (degrees) 3 Comments foot over bolster measurement- weak quad fac, shaky. PT-OP-M Strength Start: 09/19/21 09:43 Freq: Status: Active Protocol: Document 09/19/21 09:45 [facility] (Rec: 09/20/21 09:34 [facility] [id number]) Knee Strength Knee Manual Muscle Testing Left Flexion (S2) 3 Fair Extension (L3) 2+ Poor+ Comments pt is able to perform a quad set with towel under the knee, 15 degree quad lag with attempt to perform a SLR PT-OP-N Lymphedema Start: 09/20/21 09:34 Freq: Status: Active Protocol: Document 09/19/21 09:45 [facility] (Rec: 09/20/21 09:36 [facility] [id number]) Lymphedema Measurements Lower Extremity Circumference Measurements right Medial Malleolus 25.4 cm Knee Joint 40.64 cm left Medial Malleolus 26.67 cm Knee Joint 41.91 cm PT-OP-Q Treatments Start: 09/19/21 09:43 Freq: Status: Active Protocol: Document 11/15/21 09:09 [facility] (Rec: 11/15/21 09:48 [facility] [id number]) Cardio Equipment Bicycle (Upright) Duration (Minutes) 6 Resistance 4 Seat Position 6 Other 1.47miles Gym Equipment Shuttle Recovery Unilateral Squats Resistance 25# LLE, 37# RLE Reps/Time 3x15 RLE; 10, 18, 10 reps LLE Bilateral Squats Details bilateral squats Resistance 50# x3 reps easy> 62# x10 Shuttle Recovery Platform Stable Reps/Time emphasis on full knee extension Therapeutic Exercises Supine Exercises figure 4 stretch Reps/Minutes hold 30 seco to 1 min Comments did this on the shuttle [employer]one Exercises prone quad stretch Comments manual prone quad stretch Sitting Exercises HS stretch Sitting Exercise Name reviewed HEP (knee extension) Side left Resistance performed B Reps/Minutes 1 min Comments good feedback response- relax ankle Standing Exercises sit-stand Standing Exercise Name reviewed HEP Resistance AROM, TB#2 around knees Equipment Used 18 mesh chair Reps/Minutes x3 reps chair hands held front Comments cued heel press and glut squeeze ascend.- pain so stopped inside side L kne band walk Standing Exercise Name Discussed review, doing at home Resistance TB #1 loop (reduced for for) Equipment Used contact table 1 UE light/ min Reps/Minutes 20 ft x2 laps Comments cued level pelvis, tall posture- good muscle soreness, not pain PT-OP-R Modalities Start: 09/26/21 11:42 Freq: Status: Active Protocol: Document 11/12/21 12:14 SP (Rec: 11/12/21 13:06 SP [id number]) Electric Stimulation Electric Stimulation [place] stim Body Location L vastus medialis, rectus femoris Duration (Minutes) 8 Intensity 98 Patient Position Supine Combined With Heat/Cold Cold Pack Comments 10 seconds on/off, no towel under knee today as we had worked on knee extension prior and he was able to touch the table with the back of his knee (w/ cryocuff) PT-OP-T Assessment and Plan Start: 09/19/21 09:43 Freq: Status: Active Protocol: Document 11/15/21 09:09 [facility] (Rec: 11/15/21 09:48 [facility] [id number]) Physical Therapy Assessment Assessment Summary Assessment 128 flexion full extension and able to perform quad set in extension. Zak was stiff in his knee at the beginning of PT but noted after the bike and the shuttle he felt more warmed up and he wanted to work on his sit-stand and sidesteps with TB. These did not bother his knee today. Physical Therapy Plan Frequency and Duration Frequency of Treatment 2x/Week Duration of Treatment 8 Plan of Care Start Date 10/16/21 Plan of Care End Date 12/13/21 Therapeutic Interventions Therapeutic Interventions Balance Training,Home Exercise Program,Manual Therapy, Patient/Caregiver Education, Self-Care/Home Management,Soft Tissue Mobilization, Therapeutic Activities, Therapeutic Exercises Modalities Cold Pack/Ice Massage,Electric Stimulation Next Visit Focus/Plan Next Note Type Treatment Note Next Visit Plan Continue to work on gait and mobiliy, strength trainining. Pt is scheduled until 12/13/21 and he feels at that time he would like to work I at home with his exercises
--- NOTE | 2021-11-19 08:15 | PT.OTN ---
Current Diagnoses Unilateral primary osteoarthritis, left knee (11/19/21) Physical Therapy Treatment Note PT-OP-A Visit Information Start: 09/19/21 09:43 Freq: Status: Active Protocol: Document 11/19/21 07:32 SP (Rec: 11/19/21 08:18 SP [id number]) Out-Patient Physical Therapy Visit Information Visit Information Visit Type Treatment Note Visit Start Time 07:32 Visit Stop Time 08:15 Total Visit Minutes 43 Visit Number 17 Number of TICKETING AGENT Visits 1 Evaluation Information Evaluation Date 09/19/21 PT-OP-B Current Condition Start: 09/19/21 09:43 Freq: Status: Active Protocol: Document 09/19/21 09:44 [facility] (Rec: 09/19/21 09:58 [facility] [id number]) Current Condition History of Current Condition Onset Date 08/21/21 left partial knee replacement Current Complaints chief complaints of decreased knee ROM, decreased strength, and swelling. History of Current Condition pt took his last oxycodone for pain and took the last one today, taking codene as well. Pt ambulated into PT with a SPC. He has been using a cane x 3 weeks. He was experiencing swelling but feels this has gotten better. Pain is 6/10 now. Pain is localized to his knee now. He is feeling that his back is starting to go out now. He lives in a single level house. 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 He is also planning on having the right knee replaced as well. He wants to be able to walk pain free at least a mile a day. 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 Pt states can put his pants on in standing now. Pt reports thinks will be able to progress on own after his last 3 appts. Patient Reported Progress Improving PT-OP-F Manual Assessment Start: 09/19/21 09:43 Freq: Status: Active Protocol: Document 09/19/21 09:45 [facility] (Rec: 09/20/21 09:34 [facility] [id number]) Manual Assessments Soft Tissue Assessment Soft Tissue Mobility Assessment swelling noted in the left foot, ankle, and at the knee joint PT-OP-J Posture/Palpation/Skin Start: 09/19/21 09:43 Freq: Status: Active Protocol: Document 09/19/21 09:45 [facility] (Rec: 09/20/21 09:34 [facility] [id number]) Palpation Assessment Location left knee Palpation Location left knee Palpation Findings Edema Palpation Details well healed incision for medial knee partial knee replacement PT-OP-K Range of Motion Start: 09/19/21 09:43 Freq: Status: Active Protocol: Document 11/12/21 12:14 SP (Rec: 11/12/21 13:06 SP [id number]) Knee Goniometric Range of Motion Knee Right Knee ROM WFL Yes left knee Knee ROM WFL No Patient Position Supine Flexion Active (degrees) 126 Extension Active (degrees) 3 Comments foot over bolster measurement- weak quad fac, shaky. PT-OP-M Strength Start: 09/19/21 09:43 Freq: Status: Active Protocol: Document 09/19/21 09:45 [facility] (Rec: 09/20/21 09:34 [facility] [id number]) Knee Strength Knee Manual Muscle Testing Left Flexion (S2) 3 Fair Extension (L3) 2+ Poor+ Comments pt is able to perform a quad set with towel under the knee, 15 degree quad lag with attempt to perform a SLR PT-OP-N Lymphedema Start: 09/20/21 09:34 Freq: Status: Active Protocol: Document 09/19/21 09:45 [facility] (Rec: 09/20/21 09:36 [facility] [id number]) Lymphedema Measurements Lower Extremity Circumference Measurements right Medial Malleolus 25.4 cm Knee Joint 40.64 cm left Medial Malleolus 26.67 cm Knee Joint 41.91 cm PT-OP-Q Treatments Start: 09/19/21 09:43 Freq: Status: Active Protocol: Document 11/19/21 07:32 SP (Rec: 11/19/21 08:18 SP [id number]) Cardio Equipment Bicycle (Upright) Duration (Minutes) 10 Resistance 7 Seat Position 6 Other 2.54 miles Gym Equipment Shuttle Recovery Unilateral Squats Resistance 37# BLE Reps/Time 2x15 reps each Bilateral Squats Details bilateral squats Resistance 62# x20 Shuttle Recovery Platform Stable Reps/Time emphasis on full knee extension Therapeutic Exercises Standing Exercises SLS Standing Exercise Name star glides- added toHEP Side left Equipment Used rail contact Reps/Minutes 2x5 reps ( L stationary LE) Comments cued level pelvis, quad ext and knee alignment step up Standing Exercise Name doesn't have step at home, assessed forward tap with noted pain DC band walk Standing Exercise Name Discussed review, doing at home Resistance TB #3 loop (GTB in clinic, states has [place] HEP ) Equipment Used near rail, not needed Reps/Minutes 20 ft x2 laps Comments cued no trunk SB compensation, hip abd/ core fac, no pain standing mini squats Standing Exercise Name review Equipment Used rail eccentric descend Reps/Minutes x8 reps Comments low 1-2/10 pain, no change with cues knees/behind and with toes Self-Care/Home Management Treatment Education Patient Education Home Exercise Program Other Education Education on set up, proper wt selection for gym leg press for safety strengthening, cued quad ext and slow pacing control, no hyperextension. Good understanding heel press glut/mid quad/ HS facilitation mid range. Added star glides, SLS strengthening facil. PT-OP-R Modalities Start: 09/26/21 11:42 Freq: Status: Active Protocol: Document 11/12/21 12:14 SP (Rec: 11/12/21 13:06 SP [id number]) Electric Stimulation Electric Stimulation Spanish stim Body Location L vastus medialis, rectus femoris Duration (Minutes) 8 Intensity 98 Patient Position Supine Combined With Heat/Cold Cold Pack Comments 10 seconds on/off, no towel under knee today as we had worked on knee extension prior and he was able to touch the table with the back of his knee (w/ cryocuff) PT-OP-T Assessment and Plan Start: 09/19/21 09:43 Freq: Status: Active Protocol: Document 11/19/21 07:32 SP (Rec: 11/19/21 08:18 SP [id number]) Physical Therapy Assessment Goals 4 Impairment Antalgic gait pattern, pt using SPC with decreased stride length Shelter Goal (LTG) Zak is able to return to walking without a AD and is able to work towards 1 mile distance or greater 10/15/21: Pt able to walk about [address] [place] need use SPC for support/ alignment . LTG Duration 8 weeks (Progressing) 3 Impairment Swelling of the left knee, ankle, and foot as compared to the right joint line is 16.5 left and 16 right around ankle at the level of the malleolus is 10.5 L and 10 R Shelter Goal (LTG) Zak has equal circumferential measurements B both at the joint line and ankle 2 Impairment Decreased strength of the left knee s/p partial knee replacement Short Term Goal (STG) Zak is able to perform 10 SLR without quad lag 10/05/21: progressing: SLR x10 reps with 2 deg lag. 10/22/21: HEP states doing at home: HEP: quad set, heel slide, ITB stretch, sit: heel toe clamshell, side clamshell, side hip abd, stand TKE w/ TB , band walks, calf stretch, sit<> stands challenging weakness and sub patella anterior 4/10 pain. STG Duration 4 weeks (Progressing 10/05/21) Shelter Goal (LTG) Zak is able to perform 10 sit -stands without use of his hands 10/15/21: progressing: Pt able to perform 10 reps (not timed) with alot time, hip hinge forward and use momentum without UE, pain L knee 5/10, states using RLE alot due to LLE weakness, 2 brief stop stand rests. LTG Duration x 10 reps (progressing) 1 Impairment Decreased L knee ROM s/p partial (medial) knee replacement on 08/21/21 AROM knee flexion 100, extension 15 10/05/21: progressin-122 AROM, AAROM w/ strap 124 deg L knee flexion. Short Term Goal (STG) Zak is able to perform full knee flexion to 120 or greater and has 0 degrees knee extension 10/15/21: progressin- 124 deg AROM. STG Duration 4 weeks (progressing) Assessment Summary Assessment Pt improved form with SLS and quad/ glut/ hip strengthening with lateral corrections for proper form and understood carryover walking with better demonstration leaving. Physical Therapy Plan Frequency and Duration Frequency of Treatment 2x/Week Duration of Treatment 8 Plan of Care Start Date 10/16/21 Plan of Care End Date 12/13/21 Therapeutic Interventions Therapeutic Interventions Balance Training,Home Exercise Program,Manual Therapy, Patient/Caregiver Education, Self-Care/Home Management,Soft Tissue Mobilization, Therapeutic Activities, Therapeutic Exercises Modalities Cold Pack/Ice Massage,Electric Stimulation Next Visit Focus/Plan Next Note Type Treatment Note Next Visit Plan Next tx: assess gym equip for pool carryover strengtheng end PT. Continue to work on gait and mobiliy, strength trainining. Pt is scheduled until 12/13/21 and he feels at that time he would like to work I at home with his exercises
--- NOTE | 2021-11-28 18:20 | PT.OTN ---
Current Diagnoses Unilateral primary osteoarthritis, left knee (11/28/21) Physical Therapy Treatment Note PT-OP-A Visit Information Start: 09/19/21 09:43 Freq: Status: Active Protocol: Document 11/28/21 11:20 [facility] (Rec: 11/28/21 12:02 [facility] [id number]) Out-Patient Physical Therapy Visit Information Visit Information Visit Type Treatment Note Visit Start Time 11:20 Visit Stop Time 12:00 Total Visit Minutes 40 Visit Number 18 PT-OP-B Current Condition Start: 09/19/21 09:43 Freq: Status: Active Protocol: Document 09/19/21 09:44 [facility] (Rec: 09/19/21 09:58 [facility] [id number]) Current Condition History of Current Condition Onset Date 08/21/21 left partial knee replacement Current Complaints chief complaints of decreased knee ROM, decreased strength, and swelling. History of Current Condition pt took his last oxycodone for pain and took the last one today, taking codene as well. Pt ambulated into PT with a SPC. He has been using a cane x 3 weeks. He was experiencing swelling but feels this has gotten better. Pain is 6/10 now. Pain is localized to his knee now. He is feeling that his back is starting to go out now. He lives in a single level house. 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 He is also planning on having the right knee replaced as well. He wants to be able to walk pain free at least a mile a day. 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 But now it is calmed back down. PT-OP-F Manual Assessment Start: 09/19/21 09:43 Freq: Status: Active Protocol: Document 09/19/21 09:45 [facility] (Rec: 09/20/21 09:34 [facility] [id number]) Manual Assessments Soft Tissue Assessment Soft Tissue Mobility Assessment swelling noted in the left foot, ankle, and at the knee joint PT-OP-J Posture/Palpation/Skin Start: 09/19/21 09:43 Freq: Status: Active Protocol: Document 09/19/21 09:45 [facility] (Rec: 09/20/21 09:34 [facility] [id number]) Palpation Assessment Location left knee Palpation Location left knee Palpation Findings Edema Palpation Details well healed incision for medial knee partial knee replacement PT-OP-K Range of Motion Start: 09/19/21 09:43 Freq: Status: Active Protocol: Document 11/12/21 12:14 SP (Rec: 11/12/21 13:06 SP [id number]) Knee Goniometric Range of Motion Knee Right Knee ROM WFL Yes left knee Knee ROM WFL No Patient Position Supine Flexion Active (degrees) 126 Extension Active (degrees) 3 Comments foot over bolster measurement- weak quad fac, shaky. PT-OP-M Strength Start: 09/19/21 09:43 Freq: Status: Active Protocol: Document 09/19/21 09:45 [facility] (Rec: 09/20/21 09:34 [facility] [id number]) Knee Strength Knee Manual Muscle Testing Left Flexion (S2) 3 Fair Extension (L3) 2+ Poor+ Comments pt is able to perform a quad set with towel under the knee, 15 degree quad lag with attempt to perform a SLR PT-OP-N Lymphedema Start: 09/20/21 09:34 Freq: Status: Active Protocol: Document 09/19/21 09:45 [facility] (Rec: 09/20/21 09:36 [facility] [id number]) Lymphedema Measurements Lower Extremity Circumference Measurements right Medial Malleolus 25.4 cm Knee Joint 40.64 cm left Medial Malleolus 26.67 cm Knee Joint 41.91 cm PT-OP-Q Treatments Start: 09/19/21 09:43 Freq: Status: Active Protocol: Document 11/28/21 11:20 [facility] (Rec: 11/28/21 12:02 AM[facility] [id number]) Cardio Equipment Bicycle (Upright) Duration (Minutes) 5 Other pt had warmed up at home already Gym Equipment Cable Column (Body Solid) Leg Curl Resistance 20# Reps/Time 3x10 reps Leg Extension Resistance no resistance, bar only Reps/Time 3 x 10 reps Hip Adduction Resistance 30# Reps/Time 3x10 reps Hip Abduction Resistance 30# Reps/Time 3x10 reps Shuttle Recovery Unilateral Squats Resistance 37# BLE Reps/Time 2x15 reps each Bilateral Squats Details 50 # 3x 10 reps Therapeutic Exercises Sitting Exercises HS stretch Sitting Exercise Name seated on chair Side left Resistance performed B Reps/Minutes 1 min Comments good feedback response- relax ankle Manual Therapy Treatment Manual Techniques prone manual knee flexion Comments improved length of quads and tolerance for prone knee flexion today PT-OP-R Modalities Start: 09/26/21 11:42 Freq: Status: Active Protocol: Document 11/12/21 12:14 SP (Rec: 11/12/21 13:06 SP [id number]) Electric Stimulation Electric Stimulation [place] stim Body Location L vastus medialis, rectus femoris Duration (Minutes) 8 Intensity 98 Patient Position Supine Combined With Heat/Cold Cold Pack Comments 10 seconds on/off, no towel under knee today as we had worked on knee extension prior and he was able to touch the table with the back of his knee (w/ cryocuff) PT-OP-T Assessment and Plan Start: 09/19/21 09:43 Freq: Status: Active Protocol: Document 11/28/21 11:20 [facility] (Rec: 11/29/21 18:19 [facility] [id number]) Physical Therapy Assessment Assessment Summary Assessment pt doing better and was able to tolerate the addition of weight machines today for hip abduction./adduction, knee extension and knee flexion. Pt has 2 PT visits left Physical Therapy Plan Frequency and Duration Frequency of Treatment 2x/Week Duration of Treatment 8 Plan of Care Start Date 10/16/21 Plan of Care End Date 12/13/21 Therapeutic Interventions Therapeutic Interventions Balance Training,Home Exercise Program,Manual Therapy, Patient/Caregiver Education, Self-Care/Home Management,Soft Tissue Mobilization, Therapeutic Activities, Therapeutic Exercises Modalities Cold Pack/Ice Massage,Electric Stimulation Next Visit Focus/Plan Next Note Type Treatment Note Next Visit Plan continue with gym equipment as pt will transition to the pool following PT completion
--- NOTE | 2021-12-11 18:00 | PT.OTN ---
Current Diagnoses Unilateral primary osteoarthritis, left knee (12/11/21) Physical Therapy Treatment Note PT-OP-A Visit Information Start: 09/19/21 09:43 Freq: Status: Active Protocol: Document 12/11/21 15:28 [facility] (Rec: 12/11/21 16:03 [facility] [id number]) Out-Patient Physical Therapy Visit Information Visit Information Visit Type Treatment Note Visit Start Time 15:25 Visit Stop Time 16:05 Total Visit Minutes 40 Visit Number 19 PT-OP-B Current Condition Start: 09/19/21 09:43 Freq: Status: Active Protocol: Document 09/19/21 09:44 [facility] (Rec: 09/19/21 09:58 [facility] [id number]) Current Condition History of Current Condition Onset Date 08/21/21 left partial knee replacement Current Complaints chief complaints of decreased knee ROM, decreased strength, and swelling. History of Current Condition pt took his last oxycodone for pain and took the last one today, taking codene as well. Pt ambulated into PT with a SPC. He has been using a cane x 3 weeks. He was experiencing swelling but feels this has gotten better. Pain is 6/10 now. Pain is localized to his knee now. He is feeling that his back is starting to go out now. He lives in a single level house. 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 He is also planning on having the right knee replaced as well. He wants to be able to walk pain free at least a mile a day. 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 He will continue at the pool and gym at the pool after his vacation. His knee overall is doing much better. Patient Reported Progress Improving PT-OP-F Manual Assessment Start: 09/19/21 09:43 Freq: Status: Active Protocol: Document 09/19/21 09:45 [facility] (Rec: 09/20/21 09:34 [facility] [id number]) Manual Assessments Soft Tissue Assessment Soft Tissue Mobility Assessment swelling noted in the left foot, ankle, and at the knee joint PT-OP-J Posture/Palpation/Skin Start: 09/19/21 09:43 Freq: Status: Active Protocol: Document 09/19/21 09:45 [facility] (Rec: 09/20/21 09:34 [facility] [id number]) Palpation Assessment Location left knee Palpation Location left knee Palpation Findings Edema Palpation Details well healed incision for medial knee partial knee replacement PT-OP-K Range of Motion Start: 09/19/21 09:43 Freq: Status: Active Protocol: Document 11/12/21 12:14 [facility] (Rec: 11/12/21 13:06 SP [id number]) Knee Goniometric Range of Motion Knee Right Knee ROM WFL Yes left knee Knee ROM WFL No Patient Position Supine Flexion Active (degrees) 126 Extension Active (degrees) 3 Comments foot over bolster measurement- weak quad fac, shaky. PT-OP-M Strength Start: 09/19/21 09:43 Freq: Status: Active Protocol: Document 09/19/21 09:45 [facility] (Rec: 09/20/21 09:34 [facility] [id number]) Knee Strength Knee Manual Muscle Testing Left Flexion (S2) 3 Fair Extension (L3) 2+ Poor+ Comments pt is able to perform a quad set with towel under the knee, 15 degree quad lag with attempt to perform a SLR PT-OP-N Lymphedema Start: 09/20/21 09:34 Freq: Status: Active Protocol: Document 09/19/21 09:45 [facility] (Rec: 09/20/21 09:36 [facility] [id number]) Lymphedema Measurements Lower Extremity Circumference Measurements right Medial Malleolus 25.4 cm Knee Joint 40.64 cm left Medial Malleolus 26.67 cm Knee Joint 41.91 cm PT-OP-Q Treatments Start: 09/19/21 09:43 Freq: Status: Active Protocol: Document 12/11/21 15:28 [facility] (Rec: 12/11/21 16:03 [facility] [id number]) Cardio Equipment Bicycle (Upright) Duration (Minutes) 8 Seat Position 4 Gym Equipment Cable Column (Body Solid) Leg Curl Resistance 20# Reps/Time 3x10 reps Leg Extension Resistance no resistance, bar only Reps/Time 3 x 10 reps Shuttle Recovery Unilateral Squats Resistance 37# BLE Reps/Time 2x15 reps each Bilateral Squats Resistance 50#2x10 75#x10 Reps/Time emphasis on full knee extension PT-OP-R Modalities Start: 09/26/21 11:42 Freq: Status: Active Protocol: Document 11/12/21 12:14 [facility] (Rec: 11/12/21 13:06 SP [id number]) Electric Stimulation Electric Stimulation Czech stim Body Location L vastus medialis, rectus femoris Duration (Minutes) 8 Intensity 98 Patient Position Supine Combined With Heat/Cold Cold Pack Comments 10 seconds on/off, no towel under knee today as we had worked on knee extension prior and he was able to touch the table with the back of his knee (w/ cryocuff) PT-OP-T Assessment and Plan Start: 09/19/21 09:43 Freq: Status: Active Protocol: Document 12/11/21 15:20 [facility] (Rec: 12/11/21 18:00 [facility] [id number]) Physical Therapy Assessment Goals 4 Impairment Antalgic gait pattern, pt using SPC with decreased stride length [employer] Goal (LTG) Zak is able to return to walking without a AD and is able to work towards 1 mile distance or greater 12/11/21, pt has been able to ambulate without his cane, he does at times experience back pain with activities such a mowing the lawn walking on eneven surfaces. LTG Duration 8 weeks (Progressing) 3 Impairment Swelling of the left knee, ankle, and foot as compared to the right joint line is 16.5 left and 16 right around ankle at the level of the malleolus is 10.5 L and 10 R Fdc Goal (LTG) Zak has equal circumferential measurements B both at the joint line and ankle 12/11/21 overall decreased swelling 2 Impairment Decreased strength of the left knee s/p partial knee replacement Short Term Goal (STG) Zak is able to perform 10 SLR without quad lag 10/05/21: progressing: SLR x10 reps with 2 deg lag. 10/22/21: HEP states doing at home: HEP: quad set, heel slide, ITB stretch, sit: heel toe clamshell, side clamshell, side hip abd, stand TKE w/ TB , band walks, calf stretch, sit<> stands challenging weakness and sub patella anterior 4/10 pain. STG Duration 4 weeks (Progressing 10/05/21) Fdc Goal (LTG) Zak is able to perform 10 sit -stands without use of his hands GOAL MET LTG Duration x 10 reps (progressing) 1 Impairment Decreased L knee ROM s/p partial (medial) knee replacement on 08/21/21 AROM knee flexion 100, extension 15 10/05/21: progressin-122 AROM, AAROM w/ strap 124 deg L knee flexion. Short Term Goal (STG) Zak is able to perform full knee flexion to 120 or greater and has 0 degrees knee extension GOAL MET Assessment Summary Assessment pt doing better overall. He has met his ROM goals and pain level in his knee is much decreased. Physical Therapy Plan Frequency and Duration Frequency of Treatment 2x/Week Duration of Treatment 8 Plan of Care Start Date 10/16/21 Plan of Care End Date 12/13/21 Discharge Physical Therapy Discharge Reasons Goals Met Discharge Comments pt has made great overall progress and will be discharged to a [facility]
== END | disposition home or self-care (01) ==
LOC: PHYS 09-19 09:25
PROVIDERS: Family Provider Family Medicine; PCP Family Medicine; Referring Provider Orthopaedic Surgery; Visit Provider Orthopaedic Surgery
DX: M17.12 Unilateral primary osteoarthritis, left knee (principal)
CPT/HCPCS: 97014; 97110; 97116; 97140; 97161; 97535; G0283

== ENCOUNTER → 2023-05-09 06:41 | Outpatient (CLI) | payer MEDICARE, SELFPAY | PROVIDERS: Family Provider Family Medicine; PCP Family Medicine; Referring Provider Family Medicine; Visit Provider Family Medicine | DX: E11.69 Type 2 diabetes mellitus with other specified complication (principal) | CPT/HCPCS: 36415; 83036 ==

== ENCOUNTER → 2023-08-20 06:38 | Outpatient (CLI) | payer MEDICARE, SELFPAY ==
[2023-08-20 08:43] LABS: Add Manual Diff / Slide Review NO; Basophils Absolute Auto 200 /uL (0-100); Basophils Percent Auto 2.4 % (0-2); Eosinophils Absolute Auto 200 /uL (0-450); Eosinophils Percent Auto 2.1 % (2-4); Hemoglobin 16.8 g/dL (13.5-17.5); Lymphocytes Absolute Auto 1700 /uL (1100-4500); Lymphocytes Percent Auto 19.9 % (25-40); Mean Corpuscular Hemoglobin 31.6 PG (26-34); Mean Corpuscular Volume 90.3 fL (80-100); Monocytes Absolute Auto 500 /uL (0-900); Monocytes Percent Auto 5.3 % (3-14); Neutrophils Absolute Auto 6100 /uL (1500-7000); Neutrophils Percent Auto 70.3 % (50-75); Platelet Count 210 X10^3/uL (150-400); Red Blood Cell Count 5.32 X10^6/uL (4.5-5.9); Red Cell Distribution Width 13.9 % (11.6-14.8); White Blood Cell Count 8.7 X10^3/uL (4.5-11.0)
[2023-08-20 09:06] LABS: BUN Creatinine Ratio 27.3 (6-22); Blood Urea Nitrogen 21 mg/dL (9-20); Calcium 9.8 mg/dL (8.4-10.2); Carbon Dioxide 30 mmol/L (22-32); Chloride 99 mmol/L (98-107); Cholesterol 138 mg/dL (140-199); Estimated Glomerular Filt Rate > 60 mL/min (>60); Glucose 127 mg/dL (80-110); HDL Cholesterol 47 mg/dL (40-60); HEMOLYSIS < 15 (0-50); LDL Cholesterol Calculated 72 mg/dL (<100); Potassium 3.7 mmol/L (3.4-5.1); Sodium 137 mmol/L (137-145); Triglycerides 94 mg/dL (35-150)
== END ==
PROVIDERS: Family Provider Family Medicine; PCP Family Medicine; Referring Provider Internal Medicine Cardiovascular Disease; Visit Provider Internal Medicine Cardiovascular Disease
DX: I25.10 Atherosclerotic heart disease of native coronary artery without angina pectoris (principal); I10 Essential (primary) hypertension
CPT/HCPCS: 36415; 80048; 80061; 85025

== ENCOUNTER → 2023-09-09 07:43 | Outpatient (CLI) | payer MEDICARE, SELFPAY ==
[2023-09-09 08:06] LABS: Appearance Urine UA CLEAR; Bilirubin Urine UA NEGATIVE (NEGATIVE); Color Urine UA YELLOW; Glucose Urine UA 3+ g/dL (Negative); Ketones Urine UA NEGATIVE (NEGATIVE); Leukocyte Esterase Urine UA NEGATIVE (NEGATIVE); Nitrite Urine UA NEGATIVE (Negative); Occult Blood Urine UA NEGATIVE (Negative); Protein Urine UA NEGATIVE (Negative); Specific Gravity Urine UA 1.015 (1.000-1.035); Urobilinogen Urine UA 0.2 E.U./dL (0.2)
[2023-09-09 09:30] LABS: Bacteria Urine None Seen; Culture Indicated Urine Cult Not Indicated; RBC Urine 0-1/HPF (0-5/HPF); Squamous Epithelial Cell Urine None Seen (0-5/HPF); WBC Urine 0-1/HPF (0-5/HPF)
== END ==
PROVIDERS: Family Provider Family Medicine; PCP Family Medicine; Referring Provider Family Medicine; Visit Provider Family Medicine
DX: R35.0 Frequency of micturition (principal); L29.9 Pruritus, unspecified
CPT/HCPCS: 81001

== ENCOUNTER → 2023-09-22 06:40 | Outpatient (CLI) | payer MEDICARE, SELFPAY ==
[2023-09-22 09:17] LABS: Hemoglobin A1C% w Est Avg Glu 6.7 % (4.0-6.0)
== END ==
PROVIDERS: Family Provider Family Medicine; PCP Family Medicine; Referring Provider Family Medicine; Visit Provider Family Medicine
DX: E11.9 Type 2 diabetes mellitus without complications (principal)
CPT/HCPCS: 36415; 83036

== ENCOUNTER → 2023-09-23 09:16 | Outpatient (CLI) | payer MEDICARE, SELFPAY ==
--- NOTE | 2023-09-23 09:17 | DI.ECHO.S_ITS ---
[facility] +---------+ : : [address] : : : : [id number] : : : : Phone: [phone]+ Echocardiogram Report + + :Name: LEIA DON Study Date: 09/23/2023 Height: 70 in : :[facility] ReadingLocation: Weight: 215 lb : : Gender: Male BSA: 2.2 m2 : :: 1950 Age: 73 yrs BP: 111/86 mmHg: :Reason For Study: ASCENDING AORTA : :Ordering Physician: LEWIS, : :YANIRA Performed By: Nandini Menendez : :Referring: YANIRA MORAES : + + Interpretation Summary 1) Normal left ventricular size with low normal systolic function (EF 50-55%). 2) Apical hypokinesis may be present. 3) Normal right ventricular size with mildly reduced function. 4) There is mild aortic regurgitation. 5) The ascending aorta is moderately enlarged at 4.7cm. 6) Compared to the Echo done 12/11/2021, LVEF has improved from 35-40% to 50- 55% on this study. Procedure: A two-dimensional transthoracic echocardiogram with color flow and Doppler was performed. The study quality was technically adequate. Comparison is made with the echocardiogram of 12/11/2021. The patient was in atrial fibrillation with heart rates between 68-91 bpm during the exam. Left Ventricle: The left ventricle is normal in size and wall thickness. The ejection fraction is estimated to be 50-55%. There is apical hypokinesis. Diastolic function could not be accurately assessed due to atrial fibrillation. Right Ventricle: The right ventricle is normal size. Right ventricular systolic function is mildly reduced. Atria: The left atrium is moderately dilated. Right atrial size is normal. There is no Doppler evidence for an interatrial shunt. Mitral Valve: The mitral valve is normal in structure and function. There is trace mitral regurgitation. Aortic Valve: The aortic valve is trileaflet. The aortic valve opens well. There is no aortic valve stenosis. There is mild aortic regurgitation. Tricuspid Valve: The tricuspid valve is normal in structure and function. There is trace tricuspid regurgitation. Pulmonary artery pressures cannot be estimated because of the lack of a measurable TR jet velocity. Pulmonic Valve: The pulmonic valve leaflets are thin and pliable; valve motion is normal. There is mild pulmonic regurgitation. Great Vessels: The aortic root is mildly dilated. The ascending aorta is moderately enlarged. The IVC is of normal diameter and collapses greater than 50% with a sniff. This suggests a low right atrial pressure of 3 mm Hg. Pericardium/ Pleura There is no pericardial effusion. There is no pleural effusion. MMode/2D Measurements & Calculations LVIDd: 4.9 cm LVOT diam: 2.4 cm LVIDs: 3.5 cm Ao root diam: 4.4 cm FS: 28.9 % asc Aorta Diam: 4.7 cm IVSd: 0.87 cm Ao Arch Diam (Prox Trans): 3.0 cm LVPWd: 0.90 cm LV alba. diameter/BSA (cm/m^2): 2.3 LV sys. diameter/BSA (cm/m^2): 1.6 LA A2 area: 32.2 cm2 RA long axis: 6.5 cm LA A4 area: 24.3 cm2 RA area: 19.6 cm2 LA length (vol): 6.7 cm RA vol: 50.4 ml LA vol: 99.4 ml RA : 23.4 ml/m2 LA vol index: 46.2 ml/m2 IVC diam: 1.8 cm RVD1 (basal): 3.9 cm RVD2 (mid): 3.6 cm TAPSE: 1.4 cm Doppler Measurements & Calculations Ao V2 max: 101.1 cm/sec LVOT Max Adan: 82.2 cm/sec Ao V2 mean: 71.3 cm/sec LV V1 max P.7 mmHg Ao max P.1 mmHg LV V1 VTI: 14.9 cm Ao mean P.2 mmHg QUIANA(I,D): 3.8 cm2 Ao V2 VTI: 17.7 cm QUIANA(V,D): 3.7 cm2 sev ratio: 0.84 QUIANA indexed to BSA (cm^2/m^2): 1.8 MV E max adan: 101.1 cm/sec TR max adan: 212.5 cm/sec MV A max adan: 1.3 cm/sec TR max P.1 mmHg MV E/A: 80.7 PA V2 max: 78.0 cm/sec Med Peak E' Adan: 7.6 cm/sec PA V2 mean: 57.9 cm/sec E/E' med: 13.3 PA mean P.4 mmHg Lat Peak E' Adan: 9.0 cm/sec PA pr(Accel): 49.9 mmHg E/E' lat: 11.3 E/e' average: 12.3 MV dec time: 0.15 sec SV(OT): 66.8 ml Reading Physician:11:42 AM
== END ==
LOC: ECHO 09:17
PROVIDERS: Family Provider Family Medicine; PCP Family Medicine; Referring Provider Internal Medicine Cardiovascular Disease; Visit Provider Internal Medicine Cardiovascular Disease
DX: I35.1 Nonrheumatic aortic (valve) insufficiency (principal); I37.1 Nonrheumatic pulmonary valve insufficiency; I77.810 Thoracic aortic ectasia; I77.89 Other specified disorders of arteries and arterioles
CPT/HCPCS: 93306

== ENCOUNTER → 2024-02-04 06:32 | Outpatient (CLI) | payer MEDICARE, SELFPAY ==
[2024-02-04 08:39] LABS: Hemoglobin A1C% w Est Avg Glu 6.9 % (4.0-6.0)
[2024-02-04 08:52] LABS: Alanine Aminotransferase 18 IU/L (<50); Albumin 4.3 g/dL (3.5-5.0); Albumin Globulin Ratio 1.4 (1.0-2.8); Alkaline Phosphatase 59 U/L (38-126); Aspartate Aminotransferase 19 IU/L (17-59); BUN Creatinine Ratio 27.8 (6-22); Bilirubin Total 0.7 mg/dL (0.2-1.3); Blood Urea Nitrogen 22 mg/dL (9-20); Calcium 9.2 mg/dL (8.4-10.2); Carbon Dioxide 30 mmol/L (22-32); Chloride 103 mmol/L (98-107); Estimated Glomerular Filt Rate > 60 mL/min (>60); Globulin 3.1 g/dL (1.7-4.1); Glucose 143 mg/dL (80-110); HEMOLYSIS < 15 (0-50); Sodium 139 mmol/L (137-145); Total Protein 7.4 g/dL (6.3-8.2)
[2024-02-04 09:13] LABS: Prostate Specific Antigen Scrn 0.842 ng/mL (0.1-4.0)
== END ==
PROVIDERS: Family Provider Family Medicine; PCP Family Medicine; Referring Provider Family Medicine; Visit Provider Family Medicine
DX: E11.9 Type 2 diabetes mellitus without complications (principal); Z12.5 Encounter for screening for malignant neoplasm of prostate; I48.91 Unspecified atrial fibrillation; I10 Essential (primary) hypertension; I71.40 Abdominal aortic aneurysm, without rupture, unspecified
CPT/HCPCS: 36415; 80053; 83036; G0103

== ENCOUNTER → 2024-08-07 07:42 | Outpatient (CLI) | payer MEDICARE, SELFPAY ==
[2024-08-07 08:34] LABS: Hemoglobin A1C% w Est Avg Glu 6.6 % (4.0-6.0)
[2024-08-07 08:44] LABS: Alanine Aminotransferase 27 IU/L (<50); Albumin 3.6 g/dL (3.5-5.0); Albumin Globulin Ratio 1.1 (1.0-2.8); Alkaline Phosphatase 49 U/L (38-126); Aspartate Aminotransferase 30 IU/L (17-59); BUN Creatinine Ratio 21.1 (6-22); Bilirubin Total 0.6 mg/dL (0.2-1.3); Blood Urea Nitrogen 15 mg/dL (9-20); Calcium 8.8 mg/dL (8.4-10.2); Carbon Dioxide 32 mmol/L (22-32); Chloride 102 mmol/L (98-107); Cholesterol 96 mg/dL (140-199); Estimated Glomerular Filt Rate > 60 mL/min (>60); Globulin 3.2 g/dL (1.7-4.1); Glucose 166 mg/dL (80-110); HDL Cholesterol 24 mg/dL (40-60); HEMOLYSIS 22 (0-50); LDL Cholesterol Calculated 51 mg/dL (<100); Potassium 3.4 mmol/L (3.4-5.1); Sodium 136 mmol/L (137-145); Total Protein 6.8 g/dL (6.3-8.2); Triglycerides 106 mg/dL (35-150)
[2024-08-07 09:15] LABS: TSH w/ Reflex to FT4 2.54 uIU/mL (0.47-4.68)
== END ==
PROVIDERS: Family Provider Family Medicine; PCP Family Medicine; Referring Provider Family Medicine; Visit Provider Family Medicine
DX: E11.9 Type 2 diabetes mellitus without complications (principal); I48.91 Unspecified atrial fibrillation; I10 Essential (primary) hypertension; I71.40 Abdominal aortic aneurysm, without rupture, unspecified
CPT/HCPCS: 36415; 80053; 80061; 83036; 84443

== ENCOUNTER → 2024-09-21 06:49 | Outpatient (CLI) | payer MEDICARE, SELFPAY ==
[2024-09-21 07:55] LABS: BUN Creatinine Ratio 23.2 (6-22); Blood Urea Nitrogen 19 mg/dL (9-20); Calcium 9.5 mg/dL (8.4-10.2); Carbon Dioxide 32 mmol/L (22-32); Chloride 101 mmol/L (98-107); Cholesterol 129 mg/dL (140-199); Estimated Glomerular Filt Rate > 60 mL/min (>60); Glucose 143 mg/dL (80-110); HDL Cholesterol 48 mg/dL (40-60); HEMOLYSIS < 15 (0-50); LDL Cholesterol Calculated 65 mg/dL (<100); Potassium 3.6 mmol/L (3.4-5.1); Sodium 138 mmol/L (137-145); Triglycerides 81 mg/dL (35-150)
[2024-09-21 08:33] LABS: Hematocrit 46.9 % (41-53); Hemoglobin 16.3 g/dL (13.5-17.5); Mean Corpuscular HGB Conc 34.7 % (30-36); Mean Corpuscular Hemoglobin 31.5 PG (26-34); Mean Corpuscular Volume 90.9 fL (80-100); Platelet Count 216 X10^3/uL (150-400); Red Blood Cell Count 5.16 X10^6/uL (4.5-5.9); Red Cell Distribution Width 14.4 % (11.6-14.8); White Blood Cell Count 7.1 X10^3/uL (4.5-11.0)
== END ==
PROVIDERS: Family Provider Family Medicine; PCP Family Medicine; Referring Provider Internal Medicine Cardiovascular Disease; Visit Provider Internal Medicine Cardiovascular Disease
DX: I25.10 Atherosclerotic heart disease of native coronary artery without angina pectoris (principal); I10 Essential (primary) hypertension
CPT/HCPCS: 36415; 80048; 80061; 85027

== ENCOUNTER → 2024-11-04 06:29 | Outpatient (CLI) | payer MEDICARE, SELFPAY ==
[2024-11-04 08:28] LABS: Hemoglobin A1C% w Est Avg Glu 6.3 % (4.0-6.0)
[2024-11-04 09:00] LABS: Alanine Aminotransferase 19 IU/L (<50); Albumin 4.2 g/dL (3.5-5.0); Albumin Globulin Ratio 1.3 (1.0-2.8); Alkaline Phosphatase 60 U/L (38-126); Aspartate Aminotransferase 20 IU/L (17-59); BUN Creatinine Ratio 25.7 (6-22); Bilirubin Total 0.7 mg/dL (0.2-1.3); Blood Urea Nitrogen 19 mg/dL (9-20); Calcium 9.1 mg/dL (8.4-10.2); Carbon Dioxide 27 mmol/L (22-32); Chloride 102 mmol/L (98-107); Estimated Glomerular Filt Rate > 60 mL/min (>60); Globulin 3.2 g/dL (1.7-4.1); Glucose 132 mg/dL (80-110); HEMOLYSIS < 15 (0-50); Sodium 138 mmol/L (137-145); Total Protein 7.4 g/dL (6.3-8.2)
== END ==
PROVIDERS: Family Provider Family Medicine; PCP Family Medicine; Referring Provider Family Medicine; Visit Provider Family Medicine
DX: I10 Essential (primary) hypertension (principal); E11.69 Type 2 diabetes mellitus with other specified complication
CPT/HCPCS: 36415; 80053; 83036

== ENCOUNTER → 2025-01-25 06:30 | Outpatient (CLI) | payer MEDICARE, SELFPAY ==
[2025-01-25 08:08] LABS: Hemoglobin A1C% w Est Avg Glu 6.7 % (4.0-6.0)
[2025-01-25 08:18] LABS: Alanine Aminotransferase 19 IU/L (<50); Albumin 4.2 g/dL (3.5-5.0); Albumin Globulin Ratio 1.4 (1.0-2.8); Alkaline Phosphatase 58 U/L (38-126); Aspartate Aminotransferase 19 IU/L (17-59); BUN Creatinine Ratio 24.3 (6-22); Bilirubin Total 0.8 mg/dL (0.2-1.3); Blood Urea Nitrogen 17 mg/dL (9-20); Calcium 9.1 mg/dL (8.4-10.2); Carbon Dioxide 27 mmol/L (22-32); Chloride 104 mmol/L (98-107); Estimated Glomerular Filt Rate > 60 mL/min (>60); Globulin 2.9 g/dL (1.7-4.1); Glucose 154 mg/dL (70-99); HEMOLYSIS < 15 (0-50); Potassium 3.9 mmol/L (3.4-5.1); Sodium 138 mmol/L (137-145); Total Protein 7.1 g/dL (6.3-8.2)
[2025-01-25 08:47] LABS: Prostate Specific Antigen Scrn 0.842 ng/mL (0.1-4.0)
[2025-01-26 14:13] LABS: Fecal Immunochemical Test Positive (Negative)
== END ==
PROVIDERS: Family Provider Family Medicine; PCP Family Medicine; Referring Provider Family Medicine; Visit Provider Family Medicine
DX: E11.9 Type 2 diabetes mellitus without complications (principal); Z12.5 Encounter for screening for malignant neoplasm of prostate; I48.91 Unspecified atrial fibrillation; I50.20 Unspecified systolic (congestive) heart failure; Z12.11 Encounter for screening for malignant neoplasm of colon; I11.0 Hypertensive heart disease with heart failure
CPT/HCPCS: 36415; 80053; 82274; 83036; G0103

== ENCOUNTER 2025-05-09 16:23 | Emergency (ER) | payer MEDICARE, SELFPAY ==
[2025-05-09 16:50] VITALS: BP 122/81; PULSE 76; RESP 20; TEMP 36.8; O2SAT 98; BMI 29.2
== END 2025-05-09 20:54 | disposition left against medical advice (07) ==
PROVIDERS: Emergency Provider Emergency Medicine; Family Provider Family Medicine; PCP Family Medicine
DX: Z53.21 Procedure and treatment not carried out due to patient leaving prior to being seen by health care provider (principal)
CPT/HCPCS: 99281

== ENCOUNTER 2025-05-10 07:31 | Emergency (ER) | payer MEDICARE, SELFPAY ==
--- NOTE | 2025-05-10 07:33 | ED.GENADULT ---
HPI - General Adult General Stated complaint: Cellulitis in Lower Legs, X 60 Days Time Seen by Provider: 05/10/25 07:32 History of Present Illness HPI narrative: Patient is a 75-year-old male history of AFib on rivaroxaban, depression, diabetes, hepatitis-C, chronic venous stasis, thoracic aortic aneurysm hypertension, comes into the ED from home for evaluation of left lower extremity redness, pain, states that this has been ongoing persistent for the past several weeks, states that he has been on a boat over the past 3 months, he states that he has an appointment with his primary care doctor Dr. Bateman, on the , he states that he tried to contact him but stated that he needed to be evaluated emergency department. He states that he feels like it has been slightly getting worse but denies any significant amount of swelling, he has been compliant with his blood thinners. He denies any trauma or falls. States this is exactly the same as when he had an infection to his lower extremities ?awhile ago. Related Data Home Medications ?Medication ?Instructions ?Recorded ?Confirmed amlodipine 10 mg tablet 10 mg PO DAILY 01/28/25 01/28/25 hydrochlorothiazide 12.5 mg tablet 12.5 mg PO DAILY 01/28/25 01/28/25 valsartan 160 mg tablet 160 mg PO DAILY 01/28/25 01/28/25 Previous Rx's ?Medication ?Instructions ?Recorded sildenafil 100 mg tablet See Rx Instructions .Route 11/24/19 .COMPLEX #90 tabs hydrocortisone 1 % topical 1 applic topical BID PRN dry skin 05/13/23 ointment (Anti-Itch at elbows #28.35 grams (hydrocortisone)) rosuvastatin 20 mg tablet 20 mg PO DAILY #90 tabs 02/03/24 empagliflozin 25 mg tablet 25 mg PO DAILY #90 tabs 11/09/24 (Jardiance) metformin 1,000 mg tablet 1,000 mg PO BID #180 tabs 11/09/24 metoprolol succinate 50 mg 50 mg PO DAILY #90 tabs 11/09/24 tablet,extended release 24 hr rivaroxaban 20 mg tablet (Xarelto) 20 mg PO QPM #90 tabs 11/09/24 tamsulosin 0.4 mg capsule (Flomax) 0.4 mg PO DAILY #90 caps 04/12/25 doxycycline hyclate 100 mg tablet 100 mg PO BID 10 days #20 tabs 05/10/25 Allergies Allergy/AdvReac Type Severity Reaction Status Date / Time No Known Drug Allergies Allergy Verified 05/09/25 16:50 Review of Systems Review of Systems Narrative: General: Denies fever, chills, weight loss HEENT: Denies headache, eye drainage, eye irritation, head trauma, sore throat, voice change Cardiovascular: Denies any chest pain, palpitations, tachycardia Respiratory: Denies any shortness of breath, cough, wheeze, stridor GI/: Denies any abdominal pain, nausea, vomiting, diarrhea, bright red blood per rectum, melanotic stools, urinary frequency, urinary retention, dysuria, hematuria MSK: Left leg pain Skin: Discoloration to the left lower extremity Neuro: Denies any headache, lightheadedness, dizziness, fainting, weakness Psych: Denies SI/HI Patient History Medical History (Updated 05/10/25 @ 07:41 by Armand Cadena DO) Dry skin dermatitis Chronic venous stasis DMII (diabetes mellitus, type 2) Fractures Carpal tunnel syndrome Atrial fibrillation Abdominal aortic aneurysm Ascending aorta dilation Surgical History Anesthesia History of tonsillectomy History of umbilical hernia alcohol intake frequency: 0-2 drinks per day Exam Narrative Exam Narrative: General: Cooperative, well-developed, not in acute distress HEENT: Normocephalic, atraumatic, PERRLA, normal sclera, eyelids normal Neck: Active full range of motion, atraumatic Chest: Normal to inspection, negative crepitus, no overlying erythema ecchymosis Respiratory: Normal respiratory effort, not in acute respiratory distress, clear to auscultation bilaterally negative cough, wheeze, tachypnea, rhonchi, rales Cardiology: Regular rate rhythm negative gallop, murmur, rubs GI/: No tenderness to palpation, soft, non rigid, normal to inspection, exam deferred MSK: Full active range of motion in all 4 extremities, atraumatic, no tenderness to palpation of any bony prominences, patient is neurovascularly intact to the lower extremity, no edema no crepitus he is able to stand bear weight ambulate unassisted here in the emergency department Skin: Very mild erythema noted to the left lower extremity Neuro: Alert awake oriented x3, moves all 4 extremities spontaneously, cranial nerves intact, able to answer all questions appropriately follows commands appropriately Psych: Cooperative, negative suicidal or homicidal ideations Medical Decision Making MDM Narrative Medical decision making narrative: Patient is a 75-year-old male history of AFib on rivaroxaban, depression, diabetes, hepatitis-C, chronic venous stasis, thoracic aortic aneurysm hypertension, comes into the ED from home for evaluation of lower extremity redness pain, states it is primarily to his left leg, states this is similar to when he was diagnosed with a cellulitis of his leg. States that he has been on a boat for the past 3 months states that it started then has progressively gotten slightly worse but denies any actual swelling. On my exam there is mild erythema noted in the left lower extremity, there is no edema no pain he has been compliant with his anticoagulation. He is neurovascularly intact otherwise, I will start him on a oral antibiotic for cellulitis and have him follow up with his primary care doctor as needed. He states he has an appointment with him on the of this month. Patient with a negative Homans sign he is well-appearing nontoxic afebrile here not believe patient will require any additional workup at this time. Discharge Plan Departure Patient Disposition: Home Clinical Impression: Cellulitis of lower leg Activity Restrictions/Additional Instructions: Please follow up with your primary care doctor for your scheduled appointment Please read the discharge instructions sheet carefully and bring all papers to all doctor follow-up visits, as it may contain information that your doctor may want to see. Disease processes change and evolve, if your symptoms worsen or if you develop any new symptoms that are concerning to you please return for evaluation. Your evaluation today does not show any evidence of any life-threatening/serious illnesses requiring admission to the hospital or surgery. Please follow-up with your doctor for re-evaluation in approximately 1 day. Seek immediate medical attention for any worrisome symptoms. *If you do not have a primary care provider please contact the [facility] Resource line at [phone]. They will ask some questions about your medical history and help get you set up with a doctor in the community. Prescriptions: New doxycycline hyclate 100 mg tablet 100 mg PO BID 10 Days Qty: 20 0RF No Action sildenafil 100 mg tablet See Rx Instructions .ROUTE .COMPLEX Qty: 90 2RF Dose Instruction: Take one tablet by mouth one time daily Rx Instructions: Take one tablet by mouth one time daily tamsulosin [Flomax] 0.4 mg capsule 0.4 mg PO DAILY Qty: 90 0RF metformin 1,000 mg tablet 1,000 mg PO BID Qty: 180 3RF Rx Instructions: Take one tablet by mouth twice a day. Jardiance 25 mg tablet 25 mg PO DAILY Qty: 90 3RF Xarelto 20 mg tablet 20 mg PO QPM Qty: 90 3RF Rx Instructions: must administer with evening meal metoprolol succinate 50 mg tablet extended release 24 hr 50 mg PO DAILY Qty: 90 3RF hydrocortisone [Anti-Itch (HC)] 1 % ointment 1 applic topical BID PRN (Reason: dry skin at elbows) Qty: 28.35 1RF Rx Instructions: use for 1-2 weeks twice daily as needed for itchy skin if Aveeno or equivalent moisturizer ineffective. max once a month recommended. occasionally can be absorbed into blood and may temporarily cause blood sugar to increase. rosuvastatin 20 mg tablet 20 mg PO DAILY Qty: 90 3RF amlodipine 10 mg tablet 10 mg PO DAILY hydrochlorothiazide 12.5 mg tablet 12.5 mg PO DAILY valsartan 160 mg tablet 160 mg PO DAILY Referrals: David Bateman MD [Primary Care Provider, Family Practice] Stand Alone Forms: Patient Portal/API
[2025-05-10 07:40] VITALS: BP 141/96; PULSE 91; RESP 18; TEMP 36.9; O2SAT 96; BMI 28.7
[2025-05-10] MEDS: DOXYCYCLINE HYCLATE 100 MG TABLET PO (07:48)
== END 2025-05-10 07:54 | disposition home or self-care (01) ==
PROVIDERS: Emergency Provider Student in an Organized Health Care Education/Training Program; Family Provider Family Medicine; PCP Family Medicine
DX: L03.116 Cellulitis of left lower limb (principal)
CPT/HCPCS: 99283

== ENCOUNTER → 2025-05-18 06:26 | Outpatient (CLI) | payer MEDICARE, SELFPAY ==
[2025-05-18 08:42] LABS: Blood Urea Nitrogen 22 mg/dL (9-20); Calcium 9.1 mg/dL (8.4-10.2); Carbon Dioxide 27 mmol/L (22-32); Chloride 102 mmol/L (98-107); Estimated Glomerular Filt Rate > 60 mL/min (>60); Glucose 181 mg/dL (70-99); HEMOLYSIS < 15 (0-50); Potassium 4.3 mmol/L (3.4-5.1); Sodium 136 mmol/L (137-145)
== END ==
PROVIDERS: Family Provider Family Medicine; PCP Family Medicine; Referring Provider Family Medicine; Visit Provider Internal Medicine Cardiovascular Disease
DX: I10 Essential (primary) hypertension (principal); I42.8 Other cardiomyopathies
CPT/HCPCS: 36415; 80048

== ENCOUNTER → 2025-05-27 06:30 | Outpatient (CLI) | payer MEDICARE, SELFPAY ==
[2025-05-27 08:29] LABS: Hemoglobin A1C% w Est Avg Glu 7.5 % (4.0-6.0)
[2025-05-27 08:46] LABS: Alanine Aminotransferase 18 IU/L (<50); Albumin 4.1 g/dL (3.5-5.0); Albumin Globulin Ratio 1.2 (1.0-2.8); Alkaline Phosphatase 65 U/L (38-126); Blood Urea Nitrogen 27 mg/dL (9-20); Calcium 9.6 mg/dL (8.4-10.2); Carbon Dioxide 29 mmol/L (22-32); Chloride 99 mmol/L (98-107); Estimated Glomerular Filt Rate > 60 mL/min (>60); Globulin 3.4 g/dL (1.7-4.1); Glucose 164 mg/dL (70-99); HEMOLYSIS < 15 (0-50); Potassium 4.4 mmol/L (3.4-5.1); Sodium 135 mmol/L (137-145); Total Protein 7.5 g/dL (6.3-8.2)
== END ==
PROVIDERS: Family Provider Family Medicine; PCP Family Medicine; Referring Provider Family Medicine; Visit Provider Family Medicine
DX: E11.9 Type 2 diabetes mellitus without complications (principal); I48.91 Unspecified atrial fibrillation; I10 Essential (primary) hypertension
CPT/HCPCS: 36415; 80053; 83036

== ENCOUNTER → 2025-08-29 07:18 | Outpatient (CLI) | payer MEDICARE, SELFPAY ==
[2025-08-29 07:56] LABS: Hemoglobin A1C% w Est Avg Glu 7.3 % (4.0-6.0)
[2025-08-29 08:06] LABS: Alanine Aminotransferase 22 IU/L (<50); Albumin 4.5 g/dL (3.5-5.0); Albumin Globulin Ratio 1.4 (1.0-2.8); Alkaline Phosphatase 62 U/L (38-126); Blood Urea Nitrogen 19 mg/dL (9-20); Calcium 9.4 mg/dL (8.4-10.2); Carbon Dioxide 27 mmol/L (22-32); Chloride 103 mmol/L (98-107); Estimated Glomerular Filt Rate > 60 mL/min (>60); Globulin 3.3 g/dL (1.7-4.1); Glucose 147 mg/dL (70-99); HEMOLYSIS < 15 (0-50); Potassium 4.0 mmol/L (3.4-5.1); Sodium 138 mmol/L (137-145); Total Protein 7.8 g/dL (6.3-8.2)
== END ==
PROVIDERS: Family Provider Family Medicine; PCP Family Medicine; Referring Provider Family Medicine; Visit Provider Family Medicine
DX: E11.9 Type 2 diabetes mellitus without complications (principal); I48.91 Unspecified atrial fibrillation; I10 Essential (primary) hypertension
CPT/HCPCS: 36415; 80053; 83036